=== PATIENT | male | born 1945 | race Caucasian/White ===

== ENCOUNTER 2016-11-20 21:50 | Inpatient (IN) | payer MEDICARE ==
[~2016-11-20] VITALS: Ht 177.8 cm; Wt 92.5 kg
[2016-11-20] MEDS ORDERED: PROAAER10 INH (22:02)
[2016-11-20] MEDS ORDERED: TIOT18INH INH (22:02)
[2016-11-20] MEDS ORDERED: ELIQ5TAB PO (22:02)
[2016-11-20] MEDS ORDERED: SIMV40TA2 PO (22:02)
[2016-11-20] MEDS ORDERED: OXYC-517 PO (22:02)
[2016-11-21] MEDS ORDERED: diphenhydrAMINE INJ 50MG/ML VIAL (J1200) IV STA (00:07)
[2016-11-21] MEDS ORDERED: HALOPERIDOL 5 MG/ML VIAL (J1630) IV STA (00:07)
[2016-11-21] MEDS ORDERED: MORPHINE 4 MG/ML 1ML SYRINGE IV ONE ×2 (00:15→05:30)
[2016-11-21] MEDS ORDERED: NS 500 ML IV ONE (00:15)
[2016-11-21 00:31] LABS: ABG BASE EXCESS 0.3 (-2.0-2.0); ABG HCO3 22.7 MEQ/L (22.0-26.0); ABG PARTIAL PRESSURE CO2 30.6 mmHg (35.0-45.0); ABG PARTIAL PRESSURE O2 63.8 mmHg (75.0-100.0); ABG STANDARD HCO3 24.7 MEQ/L (22.0-26.0); ABG TOTAL CO2 23.7 MEQ/L (23.0-31.0); ABG pH (ARTERIAL) 7.489 UNITS (7.350-7.450)
[2016-11-21 00:59] LABS: ALBUMIN 3.5 GM/DL (3.2-5.2); ALBUMIN/GLOBULIN RATIO 1.13 (1.00-1.93); ALKALINE PHOSPHATASE 245 U/L (45-117); ALT/SGPT 370 U/L (12-78); AMYLASE 30 U/L (25-115); ANION GAP 5 MEQ/L (8-16); AST/SGOT 207 U/L (15-37); BASO % 0.2 % (0.0-1.0); BILIRUBIN,DIRECT 2.4 MG/DL (0.0-0.2); BILIRUBIN,TOTAL 4.1 MG/DL (0.2-1.0); BLOOD UREA NITROGEN 9 MG/DL (7-18); CALCIUM LEVEL 8.9 MG/DL (8.8-10.2); CARBON DIOXIDE LEVEL 30 MEQ/L (21-32); CHLORIDE LEVEL 102 MEQ/L (98-107); CREATININE FOR GFR 0.98 MG/DL (0.70-1.30); EOS # 0.1 K/mm3 (0.0-0.50); EOS % 0.8 % (0.0-3.0); GLOMERULAR FILTRATION RATE > 60.0 (>42); GLUCOSE, FASTING 99 MG/DL (83-110); LARGE UNSTAINED CELL # 0.2 K/mm3 (0.0-0.4); LARGE UNSTAINED CELL % 1.6 % (0.0-4.0); LYMPH # 1.2 K/mm3 (1.5-4.5); LYMPH % 10.7 % (24.0-44.0); MEAN CORPUSCULAR HEMOGLOBIN 31.7 pg (27.0-33.0); MEAN CORPUSCULAR HGB CONC 33.4 g/dl (32.0-36.5); MEAN CORPUSCULAR VOLUME 95.1 fl (80.0-96.0); MONO # 0.7 K/mm3 (0.0-0.8); MONO % 6.6 % (0.0-5.0); NEUTROPHILS # 8.8 K/mm3 (1.8-7.7); NEUTROPHILS % 80.2 % (36.0-66.0); PLATELET COUNT, AUTOMATED 182 k/mm3 (150-450); RED CELL DISTRIBUTION WIDTH 12.6 % (11.5-14.5); SODIUM LEVEL 137 MEQ/L (136-145); TOTAL PROTEIN 6.6 GM/DL (6.4-8.2)
[2016-11-21] MEDS ORDERED: ISOVUE-370 76% 100ML VIAL (Q9967) As Ordered ONE (01:17)
--- NOTE | 2016-11-21 02:20 | REPUSA ---
CLINICAL HISTORY: Chest pain, dyspnea. TECHNIQUE: Multiple axial CT images were obtained through the thorax with IV contrast material. COMMENTS: 5.4x1.2 cm left lower lobe pleural-based mass. Subsegmental consolidation/airspace infiltrates in the right lower lobe. Moderate pulmonary emphysema. Mildly enlarged mediastinal and hilar lymph nodes with the largest measuring 1.5 cm. Aneurysmal ascending aorta measuring 4.5 cm. There is no evidence of pleural or parenchymal mass. There are no pleural effusions. There is no evid ence of hilar or mediastinal lymphadenopathy. The heart and great vessels are within normal limits. The bony structures are free of lytic or blastic lesions. Small sliding hiatal hernia. IMPRESSION: Pleural based mass of the left lower lobe. Emphysema. Subsegmental consolidation in the right lower lobe. Mildly enlarged mediastinal and hilar lymph nodes.. Thank you for your kind referral of this patient.
--- NOTE | 2016-11-21 02:30 | REPUSA ---
CLINICAL HISTORY: Abdominal pain. TECHNIQUE: Multiple axial, sagittal and coronal CT images were obtained through the abdomen and pelvi s after administration of oral and intravenous contrast material. Images were obtained before and aft er IV contrast administration. COMMENTS: The liver is of uniform attenuation without mass or defect. There is moderate biliary ductal dilatati on. The gallbladder is thickened containing sludge. 5.3x4.7 cm heterogeneous mass of the pancreatic h ead and neck. Infiltration of the soft tissues in the peripancreatic head fat plane and encasing the mesenteric vessels. Infiltration of the vera hepatis. Metastatic local regional lymphadenopathy. Lar gest lymph node measures 1.4 cm. Abdominal aortic aneurysm measuring 4.2 cm in its largest transverse dimension. There is no evidence of adrenal mass. 2.3 cm right renal simple cyst. Moderately enlarged spleen. Both kidneys demonstrate prompt and equal nephrograms. The kidneys are normal in size, shape and conf iguration. There is no evidence of renal or ureteral mass. No renal or ureteral calculi are identifie d. There is no hydroureter or hydronephrosis. No evidence for appendicitis. There is no bowel wall thickening. No evidence for small or large kerry l obstruction. There is no evidence of abdominal ascites or lymphadenopathy. There is no evidence of intrinsic or extrinsic bladder mass. There is no pelvic ascites or lymphadeno abdulkadir. Moderate prostatomegaly. Diffusely thickened bladder. Moderate large bowel fecal stasis. There are no pleural effusions. The bony structures are free of lytic or blastic lesions. Multilevel degenerative changes are seen in volving the thoracolumbar spine. Scattered calcifications are seen involving the aorta and major branches compatible with atherosclero sis. IMPRESSION: Pancreatic heterogeneous mass suggestive of a primary neoplasm. Infiltration of the surrounding fat, encasement of the mesenteric vessels. Metastatic peripancreatic and local region lymphadenopathy. Significant compression of the extrahepatic biliary tree. Moderately dilated intrahepatic and extrahepatic biliary tree. Sludge in the gallbladder. Constipation. Prostatomegaly. Thickened bladder. Thank you for your kind referral of this patient.
[2016-11-21] MEDS ORDERED: NS 1,000 ML IV SCH (06:07)
[2016-11-21] MEDS ORDERED: ALBUTEROL SULFATE 2.5 MG/0.5 ML INH NEB SOLN INH PRN (06:15)
[2016-11-21] MEDS ORDERED: NS 2,590 ML in APPROPRIATE DILUENT 1 EA IV ONE (06:15)
[2016-11-21] MEDS: LevoFLOXacin IV 500 MG in APPROPRIATE DILUENT 1 EA IV SCH (06:27)
[2016-11-21] MEDS ORDERED: PROAAER10 INH (06:33)
--- NOTE | 2016-11-21 06:44 | HPEPDOC ---
Medical History and Physical Date of Admission Nov 21, 2016 at 06:07 History and Physical PRIMARY CARE PROVIDER: Dr. Vera in the [place] ATTENDING: Dr. Татьяна Brandon CHIEF COMPLAINT: Shortness of breath and cough HISTORY OF PRESENT ILLNESS: 71-year-old male past medical history of COPD and recent diagnosis of pancreatic cancer with metastases to the lung in October who presents complaining of shortness of breath and worsening abdominal pain. Patient is been complaining of shortness of breath with progression to dyspnea on exertion, for which she decided to come to the ED. Patient also complains of a new productive cough of white sputum. No fevers or chills. Patient also has diffuse abdominal pain has recently been started on oxycodone however has needed to take double the pills to help control his pain. He also complains of constipation after starting his pain medications. Patient denies chest pain/palpitations. No nausea or vomiting. Has been having hiccups that started tonight. PAST MEDICAL HISTORY: As per HPI PAST SURGICAL HISTORY: Right knee arthroscopy, left shoulder repair, hernia repair, abdominal surgery as child SOCIAL HISTORY: History of 1 pack per day 50 year tobacco abuse however quit 1 year ago. No alcohol or illicit drug use. FAMILY HISTORY: Noncontributory ALLERGIES: Please see below. REVIEW OF SYSTEMS: HEENT: Denies sore throat/headache CARDIOVASCULAR: Denies chest pain/palpitations RESPIRATORY: Positive shortness of breath/cough GASTROINTESTINAL: denies nausea/vomiting GENITOURINARY: Denies dysuria. Positive urinary urgency. MUSCULOSKELETAL: Denies myalgias/arthralgias NEUROLOGICAL: Denies any focal weakness HOME MEDICATIONS: Please see below. PHYSICAL EXAMINATION: Vitals: (see below) General: No acute distress, laying comfortably in bed. HEENT: Moist mucous membranes. Neck: No JVD or lymphadenopathy Cardiac: Regular rate. Tachycardic.No murmurs Pulm: Coarse crackles at the right lung base. No wheezing, rhonchi Abd: Tenderness to palpation at the suprapubic region. No rebound guarding or rigidity./ND + BS Ext: No edema or cyanosis LABORATORY DATA: See below. IMAGING: CT chest on 11/21/16 IMPRESSION: Pleural based mass of the left lower lobe. Emphysema. Subsegmental consolidation in the right lower lobe. Mildly enlarged mediastinal and hilar lymph nodes.. CT abdomen and pelvis on 11/21/16 IMPRESSION: Pancreatic heterogeneous mass suggestive of a primary neoplasm. Infiltration of the surrounding fat, encasement of the mesenteric vessels. Metastatic peripancreatic and local region lymphadenopathy. Significant compression of the extrahepatic biliary tree. Moderately dilated intrahepatic and extrahepatic biliary tree. Sludge in the gallbladder. Constipation. Prostatomegaly. Thickened bladder. MICROBIOLOGY: Please see below. ASSESSMENT/PLAN: 1. Sepsis secondary to pneumonia - we'll place patient on broad-spectrum antibiotics at this point pending cultures. Blood/sputum cultures pending. We will check lactic acid. Start IV fluids. Nebs, Mucinex. 2. Transaminitis/hyperbilirubinemia- likely secondary to the patient's significant compression of the extrahepatic as well as the dilated intra-and extrahepatic biliary tree. The patient does have known pancreatic cancer with metastases to the lung. He has not been started on chemotherapy. He was told he has stage IVb. We will obtain records from the [place]. Consider oncology consultation on this admission. ? Role for GI inpatient for possible stenting. We will obtain MRCP. 3. Abdominal pain- secondary to pancreatic cancer. Started on pain regimen. Pain management consultation. 4. History of COPD. On nebs. Does not appear to be wheezing at this time. 5. Constipation- started on bowel regimen DVT prophylaxis- heparin subcutaneous Prognosis guarded Patient followed by Dr. Татьяна Brandon starting 11/21/16 at 7 AM. Vital Signs Vital Signs Date Time Temp Pulse Resp B/P (MAP) Pulse Ox O2 Delivery O2 Flow Rate FiO2 11/21/16 05:44 146/70 (95) 11/21/16 05:39 113 18 93 Room Air 11/20/16 21:51 99.7 Laboratory Data Labs 24H Laboratory Tests 2 11/21/16 00:20: White Blood Count 11.0H, Red Blood Count 4.12L, Hemoglobin 13.1L, Hematocrit 39.2L, Mean Corpuscular Volume 95.1, Mean Corpuscular Hemoglobin 31.7, Mean Corpuscular Hemoglobin Concent 33.4, Red Cell Distribution Width 12.6, Platelet Count 182, Neutrophils (%) (Auto) 80.2H, Lymphocytes (%) (Auto) 10.7L, Monocytes (%) (Auto) 6.6H, Eosinophils (%) (Auto) 0.8, Basophils (%) (Auto) 0.2 , Neutrophils # (Auto) 8.8H, Lymphocytes # (Auto) 1.2L, Monocytes # (Auto) 0.7, Eosinophils # (Auto) 0.1, Basophils # (Auto) 0.0, Large Unclassified Cells % 1.6 , Large Unclassified Cells # 0.2, Blood Gas Bicarbonate Standard 24.7, Arterial Blood pH 7.489H, Arterial Blood Partial Pressure CO2 30.6L, Arterial Blood Partial Pressure O2 63.8L, Arterial Blood Total CO2 23.7, Arterial Blood HCO3 22.7, Arterial Blood Base Excess 0.3, Arterial Blood Oxygen Saturation 94.1L, Anion Gap 5L, Glomerular Filtration Rate > 60.0, Calcium Level 8.9, Aspartate Amino Transf (AST/SGOT) 207H, Alanine Aminotransferase (ALT/SGPT) 370H, Alkaline Phosphatase 245H, Total Bilirubin 4.1H, Direct Bilirubin 2.4H, Total Protein 6.6, Albumin 3.5, Albumin/Globulin Ratio 1.13, Amylase Level 30, Lipase 74 CBC/BMP Laboratory Tests 11/21/16 00:20 Red Blood Count 4.12 L, Mean Corpuscular Volume 95.1, Mean Corpuscular Hemoglobin 31.7, Mean Corpuscular Hemoglobin Concent 33.4, Red Cell Distribution Width 12.6, Neutrophils (%) (Auto) 80.2 H, Lymphocytes (%) (Auto) 10.7 L, Monocytes (%) (Auto) 6.6 H, Eosinophils (%) (Auto) 0.8, Basophils (%) ( Auto) 0.2, Neutrophils # (Auto) 8.8 H, Lymphocytes # (Auto) 1.2 L, Monocytes # ( Auto) 0.7, Eosinophils # (Auto) 0.1, Basophils # (Auto) 0.0 Home Medications Scheduled Apixaban Base (Eliquis) 5 Mg Tab, 1 TAB PO BID Simvastatin - High Dose (Simvastatin) 40 Mg Tab, 1 TAB PO QHS Tiotropium [place] Monohydrate (Spiriva Handihaler) 5 Inhalation/Inhaler Powd, 1 INHALATION INH DAILY Scheduled PRN Albuterol Sulfate (Proair Hfa) 108 Mcg/Act Aer, 2 PUFF INH PRN PRN for SHORTNESS OF BREATH Oxycodone HCl (Oxycodone HCl) 5 Mg Tab, 1 TAB PO PRN PRN for PAIN Allergies Coded Allergies: Penicillins (Verified Allergy, Intermediate, hives, 11/20/16) RAMESH HOLLOWAY MD Nov 21, 2016 06:44
[2016-11-21 07:28] LABS: BASO % 0.2 % (0.0-1.0); EOS % 0.2 % (0.0-3.0); LARGE UNSTAINED CELL # 0.2 K/mm3 (0.0-0.4); LARGE UNSTAINED CELL % 1.1 % (0.0-4.0); LYMPH # 1.1 K/mm3 (1.5-4.5); LYMPH % 6.6 % (24.0-44.0); MEAN CORPUSCULAR HEMOGLOBIN 30.7 pg (27.0-33.0); MEAN CORPUSCULAR HGB CONC 32.5 g/dl (32.0-36.5); MEAN CORPUSCULAR VOLUME 94.7 fl (80.0-96.0); MONO # 0.9 K/mm3 (0.0-0.8); MONO % 6.8 % (0.0-5.0); NEUTROPHILS # 11.8 K/mm3 (1.8-7.7); NEUTROPHILS % 85.1 % (36.0-66.0); PLATELET COUNT, AUTOMATED 181 k/mm3 (150-450); RED CELL DISTRIBUTION WIDTH 12.6 % (11.5-14.5); WHITE BLOOD COUNT 13.9 K/mm3 (4.0-10.0)
[2016-11-21 07:41] LABS: ALBUMIN 3.3 GM/DL (3.2-5.2); ALBUMIN/GLOBULIN RATIO 0.92 (1.00-1.93); ALKALINE PHOSPHATASE 233 U/L (45-117); ALT/SGPT 322 U/L (12-78); ANION GAP 8 MEQ/L (8-16); AST/SGOT 155 U/L (15-37); BILIRUBIN,TOTAL 4.3 MG/DL (0.2-1.0); BLOOD UREA NITROGEN 9 MG/DL (7-18); CALCIUM LEVEL 8.9 MG/DL (8.8-10.2); CARBON DIOXIDE LEVEL 25 MEQ/L (21-32); CHLORIDE LEVEL 101 MEQ/L (98-107); CREATININE FOR GFR 0.93 MG/DL (0.70-1.30); GLOMERULAR FILTRATION RATE > 60.0 (>42); GLUCOSE, FASTING 121 MG/DL (83-110); POTASSIUM SERUM 3.8 MEQ/L (3.5-5.1); SODIUM LEVEL 134 MEQ/L (136-145); TOTAL PROTEIN 6.9 GM/DL (6.4-8.2)
[2016-11-21] MEDS: IPRATROPIUM 0.5MG/ALBUTEROL 2.5MG INH SOL UD 3ML (DUONEB)(J7620) NEB SCH ×5 (07:50→23:45)
[2016-11-21 08:00] VITALS: BP 138/66
[2016-11-21] MEDS: guaiFENesin ER 600 MG TAB PO SCH ×2 (08:45→21:16)
[2016-11-21] MEDS: HEPARIN SOD (PORCINE) 5000 UNITS/ML VIAL SC SCH ×3 (08:45→21:17)
[2016-11-21] MEDS: ACETAMINOPHEN TAB 650MG DOSE (2X325MG) PO PRN (08:45)
[2016-11-21] MEDS: DOCUSATE SODIUM 100 MG CAP PO SCH ×2 (08:45→21:15)
[2016-11-21] MEDS: VANCOMYCIN HCL 1,000 MG, VIAL MATE ADAPTER 1 EACH in D5W 250 ML IV SCH ×2 (08:46→21:16)
[2016-11-21] MEDS: PANTOPRAZOLE 40MG INJ (PROTONIX) (C9113) IV SCH (08:48)
[2016-11-21] MEDS: NS 1,000 ML IV SCH ×2 (09:30→17:00)
[2016-11-21] MEDS ORDERED: VANCOMYCIN HCL 750 MG, VIAL MATE ADAPTER 1 EACH in D5W 250 ML IV ONE (10:00)
[2016-11-21 12:00] VITALS: BP 121/70
[2016-11-21] MEDS: PERCOCET 5MG/325MG TAB PO PRN ×3 (12:11→21:15)
--- NOTE | 2016-11-21 14:24 | PHACANCOPD ---
PHARMACY VANCOMYCIN DOSING Pt Demographics Demographics Patient Age:71 , Weight:91.000 , Gender: male Adjusted Body Weight Date: 11/21/16, Adjusted Body Weight: Kg Events Past 24 Hours Events Past 24 Hours: YES: Fever, Elevation in WBC, Pending Diagnostics Vancomycin Vancomycin indication: sepsis, pna Vancomycin Target Ranges: 15-20 mcg/ml Vancomycin Load Y/N: Yes Load Dose Date Time Vancomycin Load Dose: 1750mg Date: 11/21/16 Time: 0900 Vancomycin Dose Date: 11/21/16. Current Vancomycin Dose: [1g IV Q12H] Intermittent Dosing?: No Labs Labs Item Value Date Time White Blood Count 13.9 K/mm3 H 11/21/16 0702 Red Blood Count 4.12 M/mm3 L 11/21/16 0020 White Blood Count 11.0 K/mm3 H 11/21/16 0020 Creatinine 0.93 MG/DL 11/21/16 0702 Creatinine 0.98 MG/DL 11/21/16 0020 Micro Microbiology 11/21/16 Blood Culture, Received Pending 11/21/16 Blood Culture, Received Pending 11/21/16 Urine Culture, Received Pending Creatinine Clearance Date:11/21/16. Estimated Creatinine Clearance: [~75ml/min]. Pending Labs Vancomycin trough scheduled 11/22/16@1999 Assessment and Plan Maintaining Current Dose?: Yes Reason for dose change: No Dose Change Pharmacist Note Pharmacist Note Date: 11/21/16. Pharmacist note: Day #1 empiric vancomycin tx initiated with a 1750mg loading dose, followed by a maintenance regimen of 1g IV Q12H for the treatment of sepsis/pneumonia - aiming for a goal trough of 15-20mcg/ml. The patient is currently febrile, with an elevated WBC, elevated pulse, and elevated RR. He has recently been diagnosed with pancreatic cancer with metastases to the lung. No PMH of MRSA or vanco use here at [facility]. 11/[address] revealed subsegmental consolidation in the RLL. Blood, urine, and sputum cultures are pending. A vancomycin trough has been scheduled for 11/22/16 @1999. We will continue to monitor the patient and make dose adjustments if needed. [facility] Nov 21, 2016 14:24
[2016-11-21 16:00] VITALS: BP 129/64
[2016-11-21] MEDS ORDERED: FLEET ENEMA PR PRN (16:30)
[2016-11-21] MEDS: metroNIDAZOLE 500 MG in APPROPRIATE DILUENT 1 EA IV SCH ×2 (16:37→23:32)
[2016-11-21 18:57] VITALS: BP 117/63
[2016-11-21 20:00] VITALS: BP 133/63
--- NOTE | 2016-11-21 21:41 | IPNPDOC ---
Text Note Date of Service The patient was seen on 11/21/16. NOTE Hospitalist Progress Note Patient was admitted early this morning by my colleague Dr. Peter. He was seen and examined by me today. 71-year-old male with COPD and 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 He has been admitted with concern for sepsis secondary to pneumonia. 1. Sepsis secondary to pneumonia: The patient's WBC is elevated, and CT of the chest shows concern for consolidation in the right lower lobe. We will continue broad-spectrum antibiotics of vancomycin, Flagyl and Levaquin (patient is allergic to penicillins). Blood cultures are pending and we will attempt to get a sputum culture. Continue IV fluids. Continue nebulizers and Mucinex. 2. Recent diagnosis of pancreatic cancer with metastases to the lung: Patient was scheduled to have his first appointment with oncology today. I have spoken to Dr. Ruelas, who will evaluate the patient in the hospital. 3. Transaminitis: Secondary to the patient's significant compression of the extrahepatic as well as the dilated intrahepatic and extrahepatic biliary tree. After discussion with Dr. Ruelas, I have spoken with Dr. Reyes for his help in evaluating whether or not the patient would be stentable, which would make a big difference in Dr. Ruelas' ability to attempt to treat his cancer. Evaluation by Dr. Reyes is pending. DVT prophylaxis: Heparin Dispo: pending workup by Dr. Reyes and Dr. Ruelas VS,Damaris, I+O VS, Damaris, I+O Laboratory Tests 11/21/16 00:20 Red Blood Count 4.12 L, Mean Corpuscular Volume 95.1, Mean Corpuscular Hemoglobin 31.7, Mean Corpuscular Hemoglobin Concent 33.4, Red Cell Distribution Width 12.6, Neutrophils (%) (Auto) 80.2 H, Lymphocytes (%) (Auto) 10.7 L, Monocytes (%) (Auto) 6.6 H, Eosinophils (%) (Auto) 0.8, Basophils (%) ( Auto) 0.2, Neutrophils # (Auto) 8.8 H, Lymphocytes # (Auto) 1.2 L, Monocytes # ( Auto) 0.7, Eosinophils # (Auto) 0.1, Basophils # (Auto) 0.0 11/21/16 07:02 Red Blood Count 4.30, Mean Corpuscular Volume 94.7, Mean Corpuscular Hemoglobin 30.7, Mean Corpuscular Hemoglobin Concent 32.5, Red Cell Distribution Width 12.6 , Neutrophils (%) (Auto) 85.1 H, Lymphocytes (%) (Auto) 6.6 L, Monocytes (%) ( Auto) 6.8 H, Eosinophils (%) (Auto) 0.2, Basophils (%) (Auto) 0.2, Neutrophils # (Auto) 11.8 H, Lymphocytes # (Auto) 1.1 L, Monocytes # (Auto) 0.9 H, Eosinophils # (Auto) 0.0, Basophils # (Auto) 0.0, Calcium Level 8.9, Aspartate Amino Transf (AST/SGOT) 155 H, Alanine Aminotransferase (ALT/SGPT) 322 H, Alkaline Phosphatase 233 H, Total Bilirubin 4.3 H, Total Protein 6.9, Albumin 3.3 Vital Signs Date Time Temp Pulse Resp B/P (MAP) Pulse Ox O2 Delivery O2 Flow Rate FiO2 11/21/16 21:15 99.9 99 19 117/63 94 Room Air 3.0 FRANSISCO CHRISTENSEN Nov 21, 2016 21:41
--- NOTE | 2016-11-21 21:41 | CR ---
DATE OF CONSULTATION: 11/21/2016 Татьяна Brandon MD, hospitalist service, requested inpatient medical oncology consult for management recommendations regarding metastatic pancreatic cancer. 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 with COPD exacerbation. During that hospitalization he was found to have a 2.3 cm subpleural nodule in the left lung base. He was discharged uneventfully and was to followup with his PCP, but instead was traveling to [place] to be near a daughter. While there, he had acute onset abdominal pain and was admitted to [facility]. A 10/09/2016 CT chest, abdomen and pelvis re-demonstrated the 2.3 cm left lower lobe nodule, and another 1.1 cm ground glass density in the lingula, mildly prominent mediastinal and right hilar nodes, an ill-defined area of diminished enhancement in the pancreas body 3.6 cm x 2.7 cm with soft tissue extending inferiorly to the superior mesenteric artery and thrombosis in the proximal portal vein and superior mesenteric vein with thrombus extending into the mesenteric branches. During that hospitalization he underwent left lower lobe lung nodule biopsy which was positive for adenocarcinoma with features suggestive of upper GI / pancreatic biliary tract origin. He was anticoagulated and later discharged. On 10/18/2016, he presented to the [facility] oncology clinic in [place]. He said he had significant abdominal pain, had been taking oxycodone on discharge from [facility] but ran out of his medications. During his visit at the [facility] oncology labs were notably unremarkable: electrolytes normal, creatinine normal, LDH 220 , AST 18, ALT 23, CBC essentially unremarkable, with a normal differential. CA19- [id number] was drawn but I do not have those results. Details of the biopsy at [facility] showed glandular epithelium, malignant epithelial cells with abundant intracytoplasmic mucin reminiscent of alveolar or biliary type of epithelium with immunostain strongly positive for CDX2, focally weak staining for CK7 and CK20 and equivocal Napsin staining, negative for TTF1, all diagnostic of GI likely or pancreatobiliary origin of adenocarcinoma. Following the patient's 10/18/2016, visit at the [facility] oncology, it was concluded he was a candidate for palliative chemotherapy and he was recommended he says to go home to [place] for local care. He was referred to the [facility] oncology practice, but today, the day he was scheduled to be seen, he presented to the [facility] emergency room with complaint of shortness of breath. He is found to have a 5.4 cm left lower lobe pleural-based mass, mildly enlarged mediastinal and hilar adenopathy, a AAA 4.5 cm. Labs and vital signs notable for fever to 101, mild leukocytosis, significant transaminitis, AST 207, ALT 370, alkaline phosphatase 245, and hyperbilirubinemia, total bilirubin 4.1. He was admitted with diagnosis of pneumonia and metastatic pancreatic cancer. Abdomen and pelvis CT demonstrate moderate biliary ductal dilatation with thickened gallbladder containing sludge, 5.3 x 4.7 cm pancreatic head and neck mass, infiltration of soft tissues in the pancreatic head fat plane encasing mesenteric vessels, infiltration of the vera hepatis and local regional adenopathy, largest node 1.4 cm. The patient has now been seen by Dr. Reyes of gastroenterology and ERCP is planned for tomorrow with potential stenting, in light of the acute biliary obstruction. At the bedside the patient is surrounded by his family. He is comfortably reclining, alert, oriented, very pleasant, mildly jaundiced. He is aware of his diagnosis, expected to start treatment at our practice. I explained the need for biliary stenting to allow hepatic metabolism of any chemotherapy, particularly gemcitabine, the treatment that was recommended at [facility] and which is appropriate for this patient with significant comorbidities and now, three hospitalizations in the last 3 months. I discussed with them the diagnosis of metastatic pancreatic cancer, the prognosis, typically, untreated, 6 months, with expected improvement in overall survival with single-agent chemotherapy adding potentially an additional 6 months but more importantly with single-agent gemcitabine offering improved quality of life. More aggressive chemotherapy can be offered in some instances but unfortunately Mr. Gross's recent hospitalization and comorbidities make this potentially significantly more risky for him. I outlined the typical treatment schedule of gemcitabine once weekly for 7 weeks consecutively followed by 1 week off then going to a 3 week on, 1 week off schedule. PAST MEDICAL HISTORY: COPD, chronic shoulder arthralgia, abdominal aortic aneurysm 4.2 cm, mesenteric vein thrombosis, metastatic pancreatic cancer as described. PAST SURGICAL HISTORY: Stomach surgery, bilateral inguinal hernia repair, knee arthroscopy, cataract surgery, appendectomy, hand surgery, shoulder surgery. ALLERGIES: PENICILLIN. HOME MEDICATIONS: - simvastatin 80 mg by mouth daily - albuterol 90 mcg - tiotropium 18 mcg - milk of magnesia - Zolpidem 10 mg - docusate 50 mg / Senna 8.6 mg - oxycodone 5 mg as needed - apixaban 5 mg FAMILY HISTORY: Not elicited. 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 Has grown children in the area. 50 pack-year smoking history, stopped in 2016. Alcohol use in the past, not recently. REVIEW OF SYSTEMS: The patient denies active pain currently. PHYSICAL EXAMINATION: Deferred. CURRENT LABORATORY DATA: As of 07:00 a.m. today, AST 155, ALT 322, alkaline phosphatase 233, albumin 3.3, 31, 34, remainder of electrolytes unremarkable. Glucose 121. WBC 13.9, hemoglobin/hematocrit 13 and 40, respectively, platelets 131, neutrophils 85%. IMAGING: As discussed. IMPRESSION: Saeed Gross is a 71-year-old man with metastatic pancreatic cancer with the head of the pancreas large obstructing lesion with local SMA extension/involvement, superior mesenteric vein thrombosis and left lower lobe biopsy-proven metastatic focus currently measuring 5 cm, though this may be partially conglomerate with postobstructive pneumonia. In addition he has mediastinal and hilar lymph nodes. He is admitted with shortness of breath and is found to have significant transaminitis. RECOMMENDATIONS: I spent quite a bit of time at the bedside trying to explain to Mr. Gross and his family that whether or not he is a candidate for chemotherapy will in part be determined by the outcome of attempted stenting. With this severely obstructing mass and extensive local involvement and bilirubin of 4, he will have take difficulty being able to be adequately dosed with chemotherapy. I am concerned about the extent of his symptoms regarding his lung function, though reportedly on antibiotics he is improving. He asserts that at home he has a ECOG performance status of 0-1, very active. I explained the prognosis for metastatic pancreatic cancer untreated, elaborated above, and recommended cautious optimism about the possibility of palliative chemotherapy. Ideally, following stenting he could be discharged and if well enough to go home would by definition would be well enough to start single agent gemcitabine which we could start in the office next week. Over time he would need a MediPort but not necessarily for the first treatment. If he quickly rebounds and improves his bilirubin following procedure tomorrow, this would be a good sign that he could tolerate palliative treatment and probably benefit from it. On the other hand, if there is no improvement in liver functions or bilirubin following procedure, a discussion of hospice care may likely be the most appropriate step. I raised this explicitly with Mr. Gross in the presence of his family today. I asked him if he had discussed advance directives before and thought about life-saving measures should he develop cardiac arrest or respiratory arrest. He said he has thought about it but not really clearly made decisions. I encouraged him to think about it tonight. I also encouraged him to develop a healthcare proxy. Unfortunately he has an overall very poor prognosis for survival beyond a year or two, with 3 and 5 years overall survival for metastatic pancreatic cancer extremely poor. He remains optimistic, perhaps somewhat unrealistically so. Thank you for this consult. I will follow intermittently as needed. KALANI
[2016-11-21 23:32] VITALS: BP 130/70
[2016-11-22] VITALS (10 sets, daily range): BP systolic 137–171; BP diastolic 66–92
[2016-11-22] MEDS: PERCOCET 5MG/325MG TAB PO PRN ×2 (02:02→14:07)
[2016-11-22] MEDS: IPRATROPIUM 0.5MG/ALBUTEROL 2.5MG INH SOL UD 3ML (DUONEB)(J7620) NEB SCH ×6 (03:15→23:57)
[2016-11-22] MEDS: HEPARIN SOD (PORCINE) 5000 UNITS/ML VIAL SC SCH ×3 (05:38→20:32)
[2016-11-22] MEDS: LevoFLOXacin IV 500 MG in APPROPRIATE DILUENT 1 EA IV SCH (05:41)
[2016-11-22 06:18] LABS: BASO % 0.4 % (0.0-1.0); EOS % 0.3 % (0.0-3.0); LARGE UNSTAINED CELL # 0.2 K/mm3 (0.0-0.4); LARGE UNSTAINED CELL % 2.2 % (0.0-4.0); LYMPH # 0.8 K/mm3 (1.5-4.5); LYMPH % 8.2 % (24.0-44.0); MEAN CORPUSCULAR HEMOGLOBIN 31.3 pg (27.0-33.0); MEAN CORPUSCULAR HGB CONC 33.2 g/dl (32.0-36.5); MEAN CORPUSCULAR VOLUME 94.4 fl (80.0-96.0); MONO # 0.5 K/mm3 (0.0-0.8); MONO % 5.4 % (0.0-5.0); NEUTROPHILS # 8.1 K/mm3 (1.8-7.7); NEUTROPHILS % 83.4 % (36.0-66.0); PLATELET COUNT, AUTOMATED 192 k/mm3 (150-450); RED CELL DISTRIBUTION WIDTH 12.3 % (11.5-14.5); WHITE BLOOD COUNT 9.7 K/mm3 (4.0-10.0)
[2016-11-22 06:34] LABS: ALBUMIN 3.1 GM/DL (3.2-5.2); ALBUMIN/GLOBULIN RATIO 0.89 (1.00-1.93); ALKALINE PHOSPHATASE 193 U/L (45-117); ALT/SGPT 229 U/L (12-78); ANION GAP 8 MEQ/L (8-16); AST/SGOT 66 U/L (15-37); BILIRUBIN,TOTAL 3.2 MG/DL (0.2-1.0); BLOOD UREA NITROGEN 9 MG/DL (7-18); CALCIUM LEVEL 8.7 MG/DL (8.8-10.2); CARBON DIOXIDE LEVEL 24 MEQ/L (21-32); CHLORIDE LEVEL 107 MEQ/L (98-107); CREATININE FOR GFR 0.84 MG/DL (0.70-1.30); GLOMERULAR FILTRATION RATE > 60.0 (>42); GLUCOSE, FASTING 117 MG/DL (83-110); MAGNESIUM LEVEL 1.8 MG/DL (1.8-2.4); POTASSIUM SERUM 3.6 MEQ/L (3.5-5.1); SODIUM LEVEL 139 MEQ/L (136-145); TOTAL PROTEIN 6.6 GM/DL (6.4-8.2)
[2016-11-22] MEDS: DOCUSATE SODIUM 100 MG CAP PO SCH ×2 (08:44→20:32)
[2016-11-22] MEDS: guaiFENesin ER 600 MG TAB PO SCH ×2 (08:44→20:31)
[2016-11-22] MEDS: PANTOPRAZOLE 40MG INJ (PROTONIX) (C9113) IV SCH (08:44)
[2016-11-22] MEDS: metroNIDAZOLE 500 MG in APPROPRIATE DILUENT 1 EA IV SCH ×2 (08:45→16:00)
[2016-11-22] MEDS: VANCOMYCIN HCL 1,000 MG, VIAL MATE ADAPTER 1 EACH in D5W 250 ML IV SCH ×3 (09:57→22:54)
[2016-11-22] MEDS: NS 1,000 ML IV SCH (12:15)
--- NOTE | 2016-11-22 14:35 | IPNPDOC ---
Date Seen The patient was seen on 11/22/16. Progress Note Hospitalist Progress Note Subjective: Patient states that he is feeling much better. He is not having any difficulty breathing and he denies chest pain. Objective: Physical Exam: Vitals: Vital Sign - Last 24 Hours 11/21/16 11/21/16 11/21/16 11/21/16 16:00 16:37 18:57 20:00 Temp 99.9 99.9 99.7 Pulse 101 99 102 Resp 26 23 19 18 B/P (MAP) 129/64 (85) 117/63 (81) 133/63 (86) Pulse Ox 91 91 94 93 O2 Delivery Nasal Cannula Room Air Room Air O2 Flow Rate 3.0 11/21/16 11/21/16 11/21/16 11/22/16 20:35 21:15 23:32 00:40 Temp 99.9 98.0 Pulse 99 104 Resp 19 22 B/P (MAP) 117/63 130/70 (90) Pulse Ox 94 92 O2 Delivery Room Air Room Air Room Air Room Air O2 Flow Rate 3.0 11/22/16 11/22/16 11/22/16 11/22/16 02:02 02:32 04:00 05:39 Temp 98.0 98.0 98.2 Pulse 104 104 92 Resp 22 18 B/P (MAP) 130/70 130/70 138/75 (96) Pulse Ox 92 92 93 O2 Delivery Room Air Room Air Room Air Room Air O2 Flow Rate 3.0 3.0 11/22/16 11/22/16 11/22/16 11/22/16 08:00 08:50 12:00 14:07 Temp 99.6 99.6 Pulse 100 105 Resp 18 18 20 B/P (MAP) 138/76 (96) 149/84 (105) Pulse Ox 93 97 O2 Delivery Room Air Room Air Room Air General: Awake, alert, no acute distress HEENT: Normocephalic, atraumatic, extraocular movements intact CV: Regular Rate and rhythm Lungs: Clear to auscultation bilaterally Abd: Soft, nontender, nondistended Extremities: No edema Neuro: Alert and oriented 3, normal speech Psych: And normal mood and affect Labs and Imaging: Laboratory Tests 11/22/16 05:40 Red Blood Count 4.03 L, Mean Corpuscular Volume 94.4, Mean Corpuscular Hemoglobin 31.3, Mean Corpuscular Hemoglobin Concent 33.2, Red Cell Distribution Width 12.3, Neutrophils (%) (Auto) 83.4 H, Lymphocytes (%) (Auto) 8.2 L, Monocytes (%) (Auto) 5.4 H, Eosinophils (%) (Auto) 0.3, Basophils (%) ( Auto) 0.4, Neutrophils # (Auto) 8.1 H, Lymphocytes # (Auto) 0.8 L, Monocytes # ( Auto) 0.5, Eosinophils # (Auto) 0.0, Basophils # (Auto) 0.0, Calcium Level 8.7 L , Aspartate Amino Transf (AST/SGOT) 66 H, Alanine Aminotransferase (ALT/SGPT) 229 H, Alkaline Phosphatase 193 H, Total Bilirubin 3.2 H, Total Protein 6.6, Albumin 3.1 L Assessment and Plan: 71-year-old male with COPD and 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 He has been admitted with concern for sepsis secondary to pneumonia. 1. Sepsis secondary to pneumonia: The patient's WBC was elevated, and CT of the chest shows concern for consolidation in the right lower lobe. At this point, his WBC has normalized, and his last fever was over 24 hours ago. We will continue broad-spectrum antibiotics of vancomycin, Flagyl and Levaquin (patient is allergic to penicillins). Blood cultures and sputum culture are pending. Stop IV fluids. Continue nebulizers and Mucinex. 2. Recent diagnosis of pancreatic cancer with metastases to the lung: Patient was scheduled to have his first appointment with oncology on hospital day #1. I have spoken to Dr. Ruelas, who has evaluated the patient in the hospital. Depending on whether or not he is able to be stented, and his response to stenting, will direct whether or not Dr. Ruelas is able to offer palliative chemotherapy. 3. Transaminitis: Secondary to the patient's significant compression of the extrahepatic as well as the dilated intrahepatic and extrahepatic biliary tree. Dr. Reyes is attempting ERCP and stent today. At this point, the patient has been medically optimized for such a procedure. He has no prior cardiac history. He denies any chest pain or difficulty breathing. He is not requiring oxygen. He has been afebrile for 24 hours, and his white count has improved. Prior to this admission, he was previously very active. DVT prophylaxis: Heparin Dispo: pending workup by Dr. Reyes and Dr. Ruelas VS, I&O, 24H, [place] Vital Signs/I&O Vital Signs Date Time Temp Pulse Resp B/P (MAP) Pulse Ox O2 Delivery O2 Flow Rate FiO2 11/22/16 14:07 20 11/22/16 12:00 99.6 105 149/84 (105) 97 Room Air 11/22/16 02:32 3.0 I&O- Last 24 Hours up to 6 AM 11/22/16 05:59 Intake Total 6342.5 ml Output Total 2225 ml Balance 4117.5 ml Laboratory Data 24H LABS Laboratory Tests 2 11/22/16 05:40: White Blood Count 9.7, Red Blood Count 4.03L, Hemoglobin 12.6L, Hematocrit 38.0L , Mean Corpuscular Volume 94.4, Mean Corpuscular Hemoglobin 31.3, Mean Corpuscular Hemoglobin Concent 33.2, Red Cell Distribution Width 12.3, Platelet Count 192, Neutrophils (%) (Auto) 83.4H, Lymphocytes (%) (Auto) 8.2L, Monocytes (%) (Auto) 5.4H, Eosinophils (%) (Auto) 0.3, Basophils (%) (Auto) 0.4, Neutrophils # (Auto) 8.1H, Lymphocytes # (Auto) 0.8L, Monocytes # (Auto) 0.5, Eosinophils # (Auto) 0.0, Basophils # (Auto) 0.0, Large Unclassified Cells % 2.2 , Large Unclassified Cells # 0.2, Anion Gap 8, Glomerular Filtration Rate > 60.0 , Blood Urea Nitrogen 9, Creatinine 0.84, Sodium Level 139, Potassium Level 3.6 , Chloride Level 107, Carbon Dioxide Level 24, Calcium Level 8.7L, Aspartate Amino Transf (AST/SGOT) 66H, Alanine Aminotransferase (ALT/SGPT) 229H, Alkaline Phosphatase 193H, Total Bilirubin 3.2H, Total Protein 6.6, Albumin 3.1L, Magnesium Level 1.8, Albumin/Globulin Ratio 0.89L CBC/BMP Laboratory Tests 11/22/16 05:40 Red Blood Count 4.03 L, Mean Corpuscular Volume 94.4, Mean Corpuscular Hemoglobin 31.3, Mean Corpuscular Hemoglobin Concent 33.2, Red Cell Distribution Width 12.3, Neutrophils (%) (Auto) 83.4 H, Lymphocytes (%) (Auto) 8.2 L, Monocytes (%) (Auto) 5.4 H, Eosinophils (%) (Auto) 0.3, Basophils (%) ( Auto) 0.4, Neutrophils # (Auto) 8.1 H, Lymphocytes # (Auto) 0.8 L, Monocytes # ( Auto) 0.5, Eosinophils # (Auto) 0.0, Basophils # (Auto) 0.0, Calcium Level 8.7 L , Aspartate Amino Transf (AST/SGOT) 66 H, Alanine Aminotransferase (ALT/SGPT) 229 H, Alkaline Phosphatase 193 H, Total Bilirubin 3.2 H, Total Protein 6.6, Albumin 3.1 L Microbiology Microbiology 11/21/16 Blood Culture - Preliminary, Resulted No growth after 24 hours . All specim... 11/21/16 Blood Culture - Preliminary, Resulted No growth after 24 hours . All specim... 11/22/16 Gram Stain - Final, Resulted 11/22/16 Sputum Culture, Resulted Pending 11/21/16 Urine Culture - Final, Complete FRANSISCO CHRISTENSEN Nov 22, 2016 14:35
[2016-11-22] MEDS ORDERED: metroNIDAZOLE/NACL 500MG(5MG/ML)100 ML BAG (S0030) As Ordered ONE (16:25)
[2016-11-22] MEDS ORDERED: ISOVUE-300 61% 50ML VIAL (Q9967) As Ordered ONE (16:27)
[2016-11-22] MEDS ORDERED: LIDOCAINE 2% INJ 100 MG/5 ML SYRINGE As Ordered ONE (16:54)
[2016-11-22] MEDS ORDERED: PROPOFOL 200 MG/20 ML VIAL As Ordered ONE (16:54)
[2016-11-22] MEDS ORDERED: ROCURONIUM BROMIDE 50 MG/5 ML VIAL/SYRINGE As Ordered ONE (16:54)
[2016-11-22] MEDS ORDERED: MIDAZOLAM INJ 2 MG/2 ML VIAL (J2250) As Ordered ONE (16:54)
[2016-11-22] MEDS ORDERED: fentaNYL 100 MCG/2 ML INJECTION (J3010) As Ordered ONE (16:54)
[2016-11-22] MEDS ORDERED: metroNIDAZOLE/NACL 500MG(5MG/ML)100 ML BAG (S0030) IV ONE (17:08)
[2016-11-22] MEDS ORDERED: ONDANSETRON 4MG/2ML VIAL (J2405) As Ordered ONE ×2 (17:11→18:36)
[2016-11-22] MEDS ORDERED: DESFLURANE 240 ML INHALANT As Ordered ONE (17:26)
[2016-11-22] MEDS ORDERED: GLYCOPYRROLATE INJ 0.2 MG/ML 2 ML VIAL As Ordered ONE (17:27)
[2016-11-22] MEDS ORDERED: NEOSTIGMINE 1MG/ML 5 ML SYRINGE (J2710) As Ordered ONE (17:27)
--- NOTE | 2016-11-22 18:31 | ROOR ---
Patient Name: Saeed Gross Procedure Date: 11/22/2016 4:35 PM Date of : 1945 Age: 71 Room: [facility] Gender: Male Note Status: Finalized Procedure: ERCP Indications: Jaundice, Elevated liver enzymes, Malignant tumor involving entire pancreas Providers: Fermín REYES MD Referring MD: Nusrat Ruelas MD, [facility], Admin. Requesting Provider: Medicines: Monitored Anesthesia Care Complications: No immediate complications. Procedure: Pre-Anesthesia Assessment: - The heart rate, respiratory rate, oxygen saturations, blood pressure, adequacy of pulmonary ventilation, and response to care were monitored throughout the procedure. The Duodenoscope was introduced through the mouth, and advanced to the duodenum and used to inject contrast into the bile duct. The ERCP was performed with difficulty due to challenging cannulation because of abnormal anatomy. Successful completion of the procedure was aided by straightening and shortening the scope to obtain bowel loop reduction. The patient tolerated the procedure well. 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 The esophagus was successfully intubated under direct vision. The scope was advanced to a normal major papilla in the descending duodenum without detailed examination of the pharynx, larynx and associated structures, and upper GI tract. The upper GI tract was grossly normal. The bile duct was deeply cannulated. Contrast was injected. I personally interpreted the bile duct images. Ductal flow of contrast was adequate. Image quality was adequate. The middle third of the main bile duct and upper third of the main bile duct were markedly dilated and diffusely dilated, with extrinsic compression causing an obstruction. The largest diameter was 18 mm. A 6 mm biliary sphincterotomy was made with a monofilament traction (standard) sphincterotome using ERBE electrocautery. There was no post-sphincterotomy bleeding. One 10 mm by 6 cm covered metal stent was placed into the common bile duct. Bile flowed through the stent. The stent was in good position. Impression: - The upper third of the main bile duct and middle third of the main bile duct were markedly dilated, with extrinsic compression causing an obstruction in the mid bile duct. - A biliary sphincterotomy was performed. - One covered metal stent was placed into the common bile duct across the compression/stricture. Recommendation: - Observe patient's clinical course. - Clear liquid diet today. - Advance diet as tolerated for 1 day. - Return patient to hospital [facility] for ongoing care. Attending Participation: I personally performed the entire procedure. Fermín Reyes MD Fermín REYES MD 11/22/2016 6:30:49 PM This report has been signed electronically. Number of Addenda: 0 Note Initiated On: 11/22/2016 4:35 PM Estimated Blood Loss: Estimated blood loss: none.
[2016-11-22] MEDS: ONDANSETRON 4MG/2ML VIAL (J2405) IV PRN (18:38)
[2016-11-22] MEDS ORDERED: LR 1,000 ML IV SCH (19:00)
[2016-11-22] MEDS ORDERED: ONDANSETRON 4MG/2ML VIAL (J2405) IV PRN (19:00)
[2016-11-22] MEDS ORDERED: fentaNYL 100 MCG/2 ML INJECTION (J3010) IV PRN (19:00)
[2016-11-22] MEDS: ACETAMINOPHEN TAB 650MG DOSE (2X325MG) PO PRN (20:33)
[2016-11-22] MEDS ORDERED: diphenhydrAMINE 25 MG CAP PO ONE ×2 (22:45)
--- NOTE | 2016-11-22 23:45 | PHACANCOPD ---
PHARMACY VANCOMYCIN DOSING Pt Demographics Demographics Patient Age:71 , Weight:90.500 , Gender: male Adjusted Body Weight Events Past 24 Hours Events Past 24 Hours: NO: Dialysis, Diuretic Therapy, Change in CrCl, Fever, Elevation in WBC, Pending Diagnostics, Pending Procedures, Other Vancomycin Vancomycin indication: sepsis, pna Vancomycin Target Ranges: 15-20 mcg/ml Vancomycin Load Y/N: Yes Load Dose Date Time Vancomycin Load Dose: 1750mg Date: 11/21/16 Time: 0900 Vancomycin Dose Date: 11/22/16. Change current Vancomycin Dose: [1g IV Q8H starting at 23:00] Intermittent Dosing?: No Labs Labs Laboratory Tests Test 11/22/16 19:51 Vancomycin Level Trough 7.9 UG/ML (10.0-20.0) Laboratory Tests 11/22/16 05:40 Red Blood Count 4.03, Mean Corpuscular Volume 94.4, Mean Corpuscular Hemoglobin 31.3, Mean Corpuscular Hemoglobin Concent 33.2, Red Cell Distribution Width 12.3 , Neutrophils (%) (Auto) 83.4, Lymphocytes (%) (Auto) 8.2, Monocytes (%) (Auto) 5.4, Eosinophils (%) (Auto) 0.3, Basophils (%) (Auto) 0.4, Neutrophils # (Auto) 8.1, Lymphocytes # (Auto) 0.8, Monocytes # (Auto) 0.5, Eosinophils # (Auto) 0.0 , Basophils # (Auto) 0.0, Calcium Level 8.7, Aspartate Amino Transf (AST/SGOT) 66, Alanine Aminotransferase (ALT/SGPT) 229, Alkaline Phosphatase 193, Total Bilirubin 3.2, Total Protein 6.6, Albumin 3.1 Micro Microbiology 11/21/16 Blood Culture - Preliminary, Resulted No growth after 24 hours . All specim... 11/21/16 Blood Culture - Preliminary, Resulted No growth after 24 hours . All specim... 11/22/16 Gram Stain - Final, Resulted 11/22/16 Sputum Culture, Resulted Pending 11/21/16 Urine Culture - Final, Complete Creatinine Clearance Date:11/22/16. Estimated Creatinine Clearance: [>60 ml/min]. Pending Labs REPEAT Vancomycin trough scheduled 11/23/16@22:00 Assessment and Plan Maintaining Current Dose?: No Reason for dose change: Trough too low Pharmacist Note Pharmacist Note Date: 11/22/16. Pharm.D. note: VANCO 1GM IV Q12H RESULTED IN A VANCO TR = 7.9 mcg /ml (GOAL 15-20 mcg/ml). THE CURRENT 1GM DOSE IS RUNNING; THEREFORE, WE WILL CHANGE HIM TO VANCO 1GM IV Q8H STARTING AT 23:00 THIS EVENING (2GM re-LOAD). A VANCO TR WILL BE DRAWN PRIOR TO HIS 23:00 11/23 DOSE [facility] Nov 22, 2016 23:45
[2016-11-23] VITALS (8 sets, daily range): BP systolic 110–156; BP diastolic 65–88
[2016-11-23] MEDS: metroNIDAZOLE 500 MG in APPROPRIATE DILUENT 1 EA IV SCH (00:05)
[2016-11-23] MEDS: IPRATROPIUM 0.5MG/ALBUTEROL 2.5MG INH SOL UD 3ML (DUONEB)(J7620) NEB SCH ×5 (02:53→20:00)
[2016-11-23] MEDS: LevoFLOXacin IV 500 MG in APPROPRIATE DILUENT 1 EA IV SCH (05:14)
[2016-11-23] MEDS: HEPARIN SOD (PORCINE) 5000 UNITS/ML VIAL SC SCH (05:14)
[2016-11-23 05:30] LABS: BASO % 0.4 % (0.0-1.0); EOS # 0.1 K/mm3 (0.0-0.50); EOS % 0.8 % (0.0-3.0); LARGE UNSTAINED CELL # 0.2 K/mm3 (0.0-0.4); LARGE UNSTAINED CELL % 2.1 % (0.0-4.0); LYMPH # 0.9 K/mm3 (1.5-4.5); LYMPH % 10.7 % (24.0-44.0); MEAN CORPUSCULAR HEMOGLOBIN 30.7 pg (27.0-33.0); MEAN CORPUSCULAR HGB CONC 32.3 g/dl (32.0-36.5); MONO # 0.6 K/mm3 (0.0-0.8); MONO % 8.1 % (0.0-5.0); NEUTROPHILS # 5.8 K/mm3 (1.8-7.7); NEUTROPHILS % 77.9 % (36.0-66.0); PLATELET COUNT, AUTOMATED 184 k/mm3 (150-450); RED CELL DISTRIBUTION WIDTH 12.7 % (11.5-14.5); WHITE BLOOD COUNT 7.4 K/mm3 (4.0-10.0)
[2016-11-23 05:48] LABS: ALBUMIN 2.7 GM/DL (3.2-5.2); ALBUMIN/GLOBULIN RATIO 0.82 (1.00-1.93); ALKALINE PHOSPHATASE 161 U/L (45-117); ALT/SGPT 150 U/L (12-78); ANION GAP 7 MEQ/L (8-16); AST/SGOT 33 U/L (15-37); BILIRUBIN,TOTAL 1.6 MG/DL (0.2-1.0); BLOOD UREA NITROGEN 7 MG/DL (7-18); CALCIUM LEVEL 8.8 MG/DL (8.8-10.2); CARBON DIOXIDE LEVEL 26 MEQ/L (21-32); CHLORIDE LEVEL 108 MEQ/L (98-107); CREATININE FOR GFR 0.73 MG/DL (0.70-1.30); GLOMERULAR FILTRATION RATE > 60.0 (>42); GLUCOSE, FASTING 108 MG/DL (83-110); MAGNESIUM LEVEL 1.8 MG/DL (1.8-2.4); POTASSIUM SERUM 3.9 MEQ/L (3.5-5.1); SODIUM LEVEL 141 MEQ/L (136-145)
[2016-11-23] MEDS: VANCOMYCIN HCL 1,000 MG, VIAL MATE ADAPTER 1 EACH in D5W 250 ML IV SCH (06:49)
--- NOTE | 2016-11-23 08:05 | REP ---
ERCP: 23 views. HISTORY: Pneumonia. Sepsis. 4-apnvle-78-second fluoroscopy time is reported. 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 Final film demonstrates deployment of a common bile duct stent. Signed by Chester Edouard MD 11/23/2016 10:15 A
[2016-11-23] MEDS: PANTOPRAZOLE 40MG INJ (PROTONIX) (C9113) IV SCH (08:12)
[2016-11-23] MEDS: guaiFENesin ER 600 MG TAB PO SCH ×2 (08:12→21:35)
[2016-11-23] MEDS: DOCUSATE SODIUM 100 MG CAP PO SCH ×2 (08:12→21:35)
[2016-11-23] MEDS: PERCOCET 5MG/325MG TAB PO PRN (13:30)
--- NOTE | 2016-11-23 13:33 | IPNPDOC ---
Date Seen The patient was seen on 11/23/16. Progress Note Hospitalist Progress Note Subjective: Patient states that he is feeling much better. His abd pain has resolved since the stenting yesterday Objective: Physical Exam: Vitals: Vital Sign - Last 24 Hours 11/22/16 11/22/16 11/22/16 11/22/16 14:07 15:07 16:00 18:27 Temp 98.9 98.0 Pulse 118 111 Resp 20 18 18 15 B/P (MAP) 171/87 (115) 128/64 (85) Pulse Ox 94 94 O2 Delivery Room Air Room Air 11/22/16 11/22/16 11/22/16 11/22/16 18:40 18:55 19:30 20:00 Temp 98.4 99.3 99.4 Pulse 102 100 103 106 Resp 16 16 20 22 B/P (MAP) 147/64 (91) 151/68 (95) 158/81 (106) 167/77 (107) Pulse Ox 91 91 92 90 O2 Delivery Room Air Room Air Room Air Room Air 11/22/16 11/22/16 11/22/16 11/22/16 20:41 21:00 22:00 23:00 Temp 100.1 100.1 99.4 Pulse 103 105 103 Resp 22 18 B/P (MAP) 153/77 (102) 159/83 (108) 137/66 (89) Pulse Ox 92 91 94 O2 Delivery Room Air Room Air Room Air Room Air 11/22/16 11/23/16 11/23/16 11/23/16 23:59 04:00 07:44 08:00 Temp 98.9 99.5 97.0 Pulse 105 102 107 Resp 20 18 18 B/P (MAP) 169/92 (117) 156/82 (106) 142/88 (106) Pulse Ox 91 93 94 O2 Delivery Room Air Room Air Room Air Room Air 11/23/16 11:47 Temp 98.1 Pulse 75 Resp 18 B/P (MAP) 148/88 (108) Pulse Ox 98 O2 Delivery Room Air General: Awake, alert, no acute distress HEENT: Normocephalic, atraumatic, extraocular movements intact CV: Regular Rate and rhythm Lungs: Clear to auscultation bilaterally Abd: Soft, nontender, nondistended Extremities: No edema Neuro: Alert and oriented 3, normal speech Psych: And normal mood and affect Labs and Imaging: Laboratory Tests 11/23/16 05:10 Red Blood Count 3.78 L, Mean Corpuscular Volume 95.0, Mean Corpuscular Hemoglobin 30.7, Mean Corpuscular Hemoglobin Concent 32.3, Red Cell Distribution Width 12.7, Neutrophils (%) (Auto) 77.9 H, Lymphocytes (%) (Auto) 10.7 L, Monocytes (%) (Auto) 8.1 H, Eosinophils (%) (Auto) 0.8, Basophils (%) ( Auto) 0.4, Neutrophils # (Auto) 5.8, Lymphocytes # (Auto) 0.9 L, Monocytes # ( Auto) 0.6, Eosinophils # (Auto) 0.1, Basophils # (Auto) 0.0, Calcium Level 8.8, Aspartate Amino Transf (AST/SGOT) 33, Alanine Aminotransferase (ALT/SGPT) 150 H , Alkaline Phosphatase 161 H, Total Bilirubin 1.6 H, Total Protein 6.0 L, Albumin 2.7 L Assessment and Plan: 71-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 He has been admitted with concern for sepsis secondary to pneumonia. 1. Sepsis secondary to pneumonia: The patient's WBC was elevated, and CT of the chest shows concern for consolidation in the right lower lobe. At this point, his WBC has normalized, and his last fever was over 48 hours ago. We will narrow his antibiotics from vancomycin, Flagyl and Levaquin (patient is allergic to penicillins) to just levaquin. Blood cultures are negative and sputum culture are pending. Continue nebulizers and Mucinex. 2. Recent diagnosis of pancreatic cancer with metastases to the lung: Patient was scheduled to have his first appointment with oncology on hospital day #1. I have spoken to Dr. Ruelas, who has evaluated the patient in the hospital. Dr. Ruelas plans to start palliative chemotherapy next week. 3. Transaminitis: Secondary to the patient's significant compression of the extrahepatic as well as the dilated intrahepatic and extrahepatic biliary tree. Dr. Reyes stented his CBD. LFTs are steadily trending down. 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 DVT prophylaxis: tx dose lovenox Dispo: home in the next 24-48H; transfer to the floor VS, I&O, 24H, [place] Vital Signs/I&O Vital Signs Date Time Temp Pulse Resp B/P (MAP) Pulse Ox O2 Delivery O2 Flow Rate FiO2 11/23/16 11:47 98.1 75 18 148/88 (108) 98 Room Air 11/22/16 02:32 3.0 I&O- Last 24 Hours up to 6 AM 11/23/16 06:00 Intake Total 3040 ml Output Total 1775 ml Balance 1265 ml Laboratory Data 24H LABS Laboratory Tests 2 11/22/16 19:51: Vancomycin Level Trough 7.9L 11/23/16 05:10: White Blood Count 7.4, Red Blood Count 3.78L, Hemoglobin 11.6L, Hematocrit 35.9L , Mean Corpuscular Volume 95.0, Mean Corpuscular Hemoglobin 30.7, Mean Corpuscular Hemoglobin Concent 32.3, Red Cell Distribution Width 12.7, Platelet Count 184, Neutrophils (%) (Auto) 77.9H, Lymphocytes (%) (Auto) 10.7L, Monocytes (%) (Auto) 8.1H, Eosinophils (%) (Auto) 0.8, Basophils (%) (Auto) 0.4 , Neutrophils # (Auto) 5.8, Lymphocytes # (Auto) 0.9L, Monocytes # (Auto) 0.6, Eosinophils # (Auto) 0.1, Basophils # (Auto) 0.0, Large Unclassified Cells % 2.1 , Large Unclassified Cells # 0.2, Anion Gap 7L, Glomerular Filtration Rate > 60.0, Blood Urea Nitrogen 7, Creatinine 0.73, Sodium Level 141, Potassium Level 3.9, Chloride Level 108H, Carbon Dioxide Level 26, Calcium Level 8.8, Aspartate Amino Transf (AST/SGOT) 33, Alanine Aminotransferase (ALT/SGPT) 150H, Alkaline Phosphatase 161H, Total Bilirubin 1.6H, Total Protein 6.0L, Albumin 2.7L, Magnesium Level 1.8, Albumin/Globulin Ratio 0.82L CBC/BMP Laboratory Tests 11/23/16 05:10 Red Blood Count 3.78 L, Mean Corpuscular Volume 95.0, Mean Corpuscular Hemoglobin 30.7, Mean Corpuscular Hemoglobin Concent 32.3, Red Cell Distribution Width 12.7, Neutrophils (%) (Auto) 77.9 H, Lymphocytes (%) (Auto) 10.7 L, Monocytes (%) (Auto) 8.1 H, Eosinophils (%) (Auto) 0.8, Basophils (%) ( Auto) 0.4, Neutrophils # (Auto) 5.8, Lymphocytes # (Auto) 0.9 L, Monocytes # ( Auto) 0.6, Eosinophils # (Auto) 0.1, Basophils # (Auto) 0.0, Calcium Level 8.8, Aspartate Amino Transf (AST/SGOT) 33, Alanine Aminotransferase (ALT/SGPT) 150 H , Alkaline Phosphatase 161 H, Total Bilirubin 1.6 H, Total Protein 6.0 L, Albumin 2.7 L Microbiology Microbiology 11/21/16 Blood Culture - Preliminary, Resulted No Growth after 48 hours. All Specime... 11/21/16 Blood Culture - Preliminary, Resulted No Growth after 48 hours. All Specime... 11/22/16 Gram Stain - Final, Resulted 11/22/16 Sputum Culture, Resulted Pending 11/21/16 Urine Culture - Final, Complete FRANSISCO CHRISTENSEN Nov 23, 2016 13:33
[2016-11-23] MEDS: ONDANSETRON 4MG/2ML VIAL (J2405) IV PRN (13:52)
[2016-11-23] MEDS: ENOXAPARIN 150 MG/ML SYR (J1650) SC SCH (15:28)
[2016-11-23] MEDS: METOPROLOL TART 25 MG TABLET PO SCH ×2 (18:44→23:49)
[2016-11-23] MEDS ORDERED: METOPROLOL 5 MG/5 ML VIAL IV STA (18:49)
[2016-11-24] VITALS (8 sets, daily range): BP systolic 125–175; BP diastolic 64–83; PULSE 89–94
[2016-11-24] MEDS: IPRATROPIUM 0.5MG/ALBUTEROL 2.5MG INH SOL UD 3ML (DUONEB)(J7620) NEB SCH ×6 (04:00→20:30)
[2016-11-24] MEDS: METOPROLOL TART 25 MG TABLET PO SCH ×4 (05:03→23:07)
[2016-11-24] MEDS: LevoFLOXacin 750 MG TABLET PO SCH (05:03)
[2016-11-24 05:19] LABS: BASO % 0.4 % (0.0-1.0); EOS # 0.1 K/mm3 (0.0-0.50); EOS % 1.1 % (0.0-3.0); LARGE UNSTAINED CELL # 0.2 K/mm3 (0.0-0.4); LARGE UNSTAINED CELL % 2.6 % (0.0-4.0); LYMPH # 1.2 K/mm3 (1.5-4.5); LYMPH % 15.4 % (24.0-44.0); MEAN CORPUSCULAR HEMOGLOBIN 31.3 pg (27.0-33.0); MEAN CORPUSCULAR HGB CONC 33.5 g/dl (32.0-36.5); MEAN CORPUSCULAR VOLUME 93.2 fl (80.0-96.0); MONO # 0.6 K/mm3 (0.0-0.8); MONO % 7.4 % (0.0-5.0); NEUTROPHILS # 5.7 K/mm3 (1.8-7.7); PLATELET COUNT, AUTOMATED 218 k/mm3 (150-450); RED CELL DISTRIBUTION WIDTH 12.5 % (11.5-14.5); WHITE BLOOD COUNT 7.8 K/mm3 (4.0-10.0)
[2016-11-24 05:30] LABS: ALBUMIN 2.6 GM/DL (3.2-5.2); ALBUMIN/GLOBULIN RATIO 0.76 (1.00-1.93); ALKALINE PHOSPHATASE 145 U/L (45-117); ALT/SGPT 110 U/L (12-78); ANION GAP 10 MEQ/L (8-16); AST/SGOT 23 U/L (15-37); BILIRUBIN,TOTAL 1.1 MG/DL (0.2-1.0); BLOOD UREA NITROGEN 9 MG/DL (7-18); CALCIUM LEVEL 8.7 MG/DL (8.8-10.2); CARBON DIOXIDE LEVEL 26 MEQ/L (21-32); CHLORIDE LEVEL 104 MEQ/L (98-107); CREATININE FOR GFR 0.71 MG/DL (0.70-1.30); GLOMERULAR FILTRATION RATE > 60.0 (>42); GLUCOSE, FASTING 107 MG/DL (83-110); MAGNESIUM LEVEL 1.6 MG/DL (1.8-2.4); POTASSIUM SERUM 3.5 MEQ/L (3.5-5.1); SODIUM LEVEL 140 MEQ/L (136-145)
[2016-11-24] MEDS: MAG SULF 1GM/100ML (MAG RUN) 1 GM in APPROPRIATE DILUENT 1 EA IV SCH ×2 (06:36→08:24)
[2016-11-24] MEDS: DOCUSATE SODIUM 100 MG CAP PO SCH ×2 (08:24→20:21)
[2016-11-24] MEDS: guaiFENesin ER 600 MG TAB PO SCH ×2 (08:24→20:21)
[2016-11-24] MEDS: PANTOPRAZOLE 40MG INJ (PROTONIX) (C9113) IV SCH (10:36)
--- NOTE | 2016-11-24 12:53 | ECGEPIP ---
Stationary ECG Study [facility] Test Date: 2016-11-23 Pat Name: RAVEN HARRELL Department: Room: [place] [address] Gender: M Manager Interface: CRICKET : 1945 Requested By: FRANSISCO White Order Number: [id number] Reading MD: Fermín Aaron Measurements Intervals [place] Rate: 150 P: GA: 0 QRS: -51 QRSD: 87 T: 30 QT: 272 QTc: 430 Interpretive Statements ATRIAL FIBRILLATION WITH RAPID VENTRICULAR RESPONSE PATTERN CONSISTENT WITH PULMONARY DISEASE POSSIBLE RIGHT VENTRICULAR CONDUCTION DELAY LEFT ANTERIOR FASCICULAR BLOCK Comparison tracing not on file Electronically Signed On 11-24-2016 12:52:42 EDT by Fermín Aaron
--- NOTE | 2016-11-24 12:54 | ECGEPIP ---
Stationary ECG Study [facility] Test Date: 2016-11-23 Pat Name: RAVEN HARRELL Department: Room: [place] [address] Gender: M [employer] Counselor: EM : 1945 Requested By: MARGIE FAYE Order Number: [id number] Reading MD: Fermín Aaron Measurements Intervals [place] Rate: 98 P: 42 FL: 192 QRS: -45 QRSD: 92 T: 17 QT: 357 QTc: 458 Interpretive Statements SINUS RHYTHM Borderline prolonged QTc POSSIBLE LEFT ATRIAL ENLARGEMENT POSSIBLE RIGHT VENTRICULAR CONDUCTION DELAY LEFT ANTERIOR FASCICULAR BLOCK Rate decreased when compared to tracing done 11-23-16 Electronically Signed On 11-24-2016 12:54:29 EDT by Fermín Aaron
[2016-11-24] MEDS: ENOXAPARIN 150 MG/ML SYR (J1650) SC SCH (14:52)
[2016-11-24] MEDS ORDERED: LOVE0.8I3 SC (15:09)
--- NOTE | 2016-11-24 16:49 | IPNPDOC ---
Date Seen The patient was seen on 11/24/16. Progress Note Hospitalist Progress Note Subjective: Patient states that he is feeling much better. He reports being asymptomatic yesterday with the Afib Objective: Physical Exam: Vitals: Vital Sign - Last 24 Hours 11/23/16 11/23/16 11/23/16 11/23/16 16:50 18:40 18:44 19:18 Temp 98.0 98.2 Pulse 110 130 150 124 Resp 18 18 B/P (MAP) 122/85 (97) 118/65 (82) 118/65 110/67 Pulse Ox 95 95 O2 Delivery Room Air Room Air 11/23/16 11/23/16 11/23/16 11/23/16 19:20 20:00 20:00 23:49 Temp 99.7 Pulse 124 121 95 Resp 20 B/P (MAP) 110/67 (81) 144/80 (101) 125/66 Pulse Ox 94 O2 Delivery Room Air Room Air 11/23/16 11/24/16 11/24/16 11/24/16 23:59 00:00 04:00 05:03 Temp 100.1 98.9 Pulse 76 89 89 Resp 20 20 B/P (MAP) 125/66 (85) 170/78 (108) 170/78 Pulse Ox 93 93 O2 Delivery Room Air Room Air Room Air 11/24/16 11/24/16 11/24/16 11/24/16 07:50 08:00 11:50 12:00 Temp 98.3 98.9 Pulse 84 99 Resp 18 18 B/P (MAP) 136/76 (96) 167/79 (108) Pulse Ox 93 94 O2 Delivery Room Air Room Air Room Air Room Air 11/24/16 12:25 Pulse 84 B/P (MAP) 136/76 General: Awake, alert, no acute distress HEENT: Normocephalic, atraumatic, extraocular movements intact CV: Regular Rate and rhythm Lungs: Clear to auscultation bilaterally Abd: Soft, nontender, nondistended Extremities: No edema Neuro: Alert and oriented 3, normal speech Psych: And normal mood and affect Labs and Imaging: Laboratory Tests 11/24/16 04:57 Red Blood Count 3.78 L, Mean Corpuscular Volume 93.2, Mean Corpuscular Hemoglobin 31.3, Mean Corpuscular Hemoglobin Concent 33.5, Red Cell Distribution Width 12.5, Neutrophils (%) (Auto) 73.0 H, Lymphocytes (%) (Auto) 15.4 L, Monocytes (%) (Auto) 7.4 H, Eosinophils (%) (Auto) 1.1, Basophils (%) ( Auto) 0.4, Neutrophils # (Auto) 5.7, Lymphocytes # (Auto) 1.2 L, Monocytes # ( Auto) 0.6, Eosinophils # (Auto) 0.1, Basophils # (Auto) 0.0, Calcium Level 8.7 L , Aspartate Amino Transf (AST/SGOT) 23, Alanine Aminotransferase (ALT/SGPT) 110 H, Total Creatine Kinase 78, Alkaline Phosphatase 145 H, Total Bilirubin 1.1 H, Total Protein 6.0 L, Albumin 2.6 L Assessment and Plan: 71-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 He has been admitted with concern for sepsis secondary to pneumonia. Last night he went into Afib w/RVR for about 5 hours. 1. Sepsis secondary to pneumonia: The patient's WBC was elevated, and CT of the chest shows concern for consolidation in the right lower lobe. At this point, his WBC has normalized, and his last fever was over 48 hours ago. His antibiotics have been narrowed from vancomycin, Flagyl and Levaquin (patient is allergic to penicillins) to just levaquin. Blood cultures are negative and sputum culture shows only some yeast like organisms with normal adela. Continue nebulizers and Mucinex. 2. Recent diagnosis of pancreatic cancer with metastases to the lung: Patient was scheduled to have his first appointment with oncology on hospital day #1. I have spoken to Dr. Ruelas, who has evaluated the patient in the hospital. Dr. Ruelas plans to start palliative chemotherapy next week. 3. Transaminitis: Secondary to the patient's significant compression of the extrahepatic as well as the dilated intrahepatic and extrahepatic biliary tree. Dr. Reyes stented his CBD. LFTs are steadily trending down. 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 Patient reports that he had previously been told it would cost over $300 monthly, which he cannot afford, and is why he was on apixaban. Dr. Ruelas says that if he is unable or unwilling to take the lovenox, then the apixaban is fine. We will look into the cost of lovenox. 5. New Afib w/RVR: Last night, the patient was noted to be in Afib to the 150s. He was started on PO metoprolol and converted several hours later. He denies any prior history of Afib. He was asymptomatic and trops are negative. He is already on anticoagulation. We will check TSH and echo. DVT prophylaxis: tx dose lovenox Dispo: home in the next 24-48H pending Afib work up VS, I&O, 24H, Fishbone Vital Signs/I&O Vital Signs Date Time Temp Pulse Resp B/P (MAP) Pulse Ox O2 Delivery O2 Flow Rate FiO2 11/24/16 12:25 84 136/76 11/24/16 12:00 98.9 18 94 Room Air 11/22/16 02:32 3.0 I&O- Last 24 Hours up to 6 AM 11/24/16 06:00 Intake Total 1100 ml Output Total 575 ml Balance 525 ml Laboratory Data 24H LABS Laboratory Tests 2 11/23/16 19:11: Total Creatine Kinase 96, Creatine Kinase MB 2.2, Creatine Kinase MB Relative Index 2.29, Troponin I < 0.02 11/24/16 04:57: Total Creatine Kinase 78, Creatine Kinase MB 1.3, Creatine Kinase MB Relative Index 1.66, Troponin I 0.02, White Blood Count 7.8, Red Blood Count 3.78L, Hemoglobin 11.8L, Hematocrit 35.3L, Mean Corpuscular Volume 93.2, Mean Corpuscular Hemoglobin 31.3, Mean Corpuscular Hemoglobin Concent 33.5, Red Cell Distribution Width 12.5, Platelet Count 218, Neutrophils (%) (Auto) 73.0H, Lymphocytes (%) (Auto) 15.4L, Monocytes (%) (Auto) 7.4H, Eosinophils (%) (Auto) 1.1, Basophils (%) (Auto) 0.4, Neutrophils # (Auto) 5.7, Lymphocytes # (Auto) 1.2L, Monocytes # (Auto) 0.6, Eosinophils # (Auto) 0.1, Basophils # (Auto) 0.0, Large Unclassified Cells % 2.6, Large Unclassified Cells # 0.2, Anion Gap 10, Glomerular Filtration Rate > 60.0, Blood Urea Nitrogen 9, Creatinine 0.71, Sodium Level 140, Potassium Level 3.5, Chloride Level 104, Carbon Dioxide Level 26, Calcium Level 8.7L, Aspartate Amino Transf (AST/SGOT) 23, Alanine Aminotransferase (ALT/SGPT) 110H, Alkaline Phosphatase 145H, Total Bilirubin 1.1H, Total Protein 6.0L, Albumin 2.6L, Magnesium Level 1.6L, Albumin/Globulin Ratio 0.76L, Thyroid Stimulating Hormone (TSH) 0.673 11/24/16 09:48: Total Creatine Kinase 102, Creatine Kinase MB 1.8, Creatine Kinase MB Relative Index 1.76, Troponin I < 0.02 CBC/BMP Laboratory Tests 11/24/16 04:57 Red Blood Count 3.78 L, Mean Corpuscular Volume 93.2, Mean Corpuscular Hemoglobin 31.3, Mean Corpuscular Hemoglobin Concent 33.5, Red Cell Distribution Width 12.5, Neutrophils (%) (Auto) 73.0 H, Lymphocytes (%) (Auto) 15.4 L, Monocytes (%) (Auto) 7.4 H, Eosinophils (%) (Auto) 1.1, Basophils (%) ( Auto) 0.4, Neutrophils # (Auto) 5.7, Lymphocytes # (Auto) 1.2 L, Monocytes # ( Auto) 0.6, Eosinophils # (Auto) 0.1, Basophils # (Auto) 0.0, Calcium Level 8.7 L , Aspartate Amino Transf (AST/SGOT) 23, Alanine Aminotransferase (ALT/SGPT) 110 H, Total Creatine Kinase 78, Alkaline Phosphatase 145 H, Total Bilirubin 1.1 H, Total Protein 6.0 L, Albumin 2.6 L Microbiology Microbiology 11/21/16 Blood Culture - Preliminary, Resulted No Growth after 72 hours. All specime... 11/21/16 Blood Culture - Preliminary, Resulted No Growth after 72 hours. All specime... 11/22/16 Gram Stain - Final, Complete 11/22/16 Sputum Culture - Final, Complete Yeast Like Organism 11/21/16 Urine Culture - Final, Complete FRANSISCO CHRISTENSEN Nov 24, 2016 16:49
[2016-11-24] MEDS: MORPHINE 2 MG/ML 1ML SYRINGE IV PRN ×3 (17:39→22:37)
[2016-11-24] MEDS: PERCOCET 5MG/325MG TAB PO PRN (18:53)
[2016-11-25] VITALS: PULSE 89
[2016-11-25 04:00] VITALS: BP 142/70; PULSE 89
[2016-11-25] MEDS: IPRATROPIUM 0.5MG/ALBUTEROL 2.5MG INH SOL UD 3ML (DUONEB)(J7620) NEB SCH ×4 (04:00→11:16)
[2016-11-25] MEDS: MORPHINE 2 MG/ML 1ML SYRINGE IV PRN ×2 (05:05→08:52)
[2016-11-25] MEDS: LevoFLOXacin 750 MG TABLET PO SCH (05:05)
[2016-11-25] MEDS: METOPROLOL TART 25 MG TABLET PO SCH ×2 (05:05→12:08)
[2016-11-25 06:17] LABS: BASO % 0.3 % (0.0-1.0); EOS % 0.3 % (0.0-3.0); LARGE UNSTAINED CELL # 0.1 K/mm3 (0.0-0.4); LARGE UNSTAINED CELL % 1.3 % (0.0-4.0); LYMPH # 1.3 K/mm3 (1.5-4.5); LYMPH % 10.6 % (24.0-44.0); MEAN CORPUSCULAR HEMOGLOBIN 30.9 pg (27.0-33.0); MEAN CORPUSCULAR HGB CONC 32.9 g/dl (32.0-36.5); MEAN CORPUSCULAR VOLUME 94.1 fl (80.0-96.0); MONO # 0.8 K/mm3 (0.0-0.8); MONO % 7.9 % (0.0-5.0); NEUTROPHILS # 8.4 K/mm3 (1.8-7.7); NEUTROPHILS % 79.5 % (36.0-66.0); PLATELET COUNT, AUTOMATED 244 k/mm3 (150-450); RED CELL DISTRIBUTION WIDTH 12.7 % (11.5-14.5); WHITE BLOOD COUNT 10.6 K/mm3 (4.0-10.0)
[2016-11-25 06:18] LABS: ALBUMIN 2.6 GM/DL (3.2-5.2); ALBUMIN/GLOBULIN RATIO 0.72 (1.00-1.93); ALKALINE PHOSPHATASE 133 U/L (45-117); ALT/SGPT 86 U/L (12-78); ANION GAP 11 MEQ/L (8-16); AST/SGOT 19 U/L (15-37); BLOOD UREA NITROGEN 10 MG/DL (7-18); CALCIUM LEVEL 8.3 MG/DL (8.8-10.2); CARBON DIOXIDE LEVEL 23 MEQ/L (21-32); CHLORIDE LEVEL 101 MEQ/L (98-107); GLOMERULAR FILTRATION RATE > 60.0 (>42); GLUCOSE, FASTING 104 MG/DL (83-110); MAGNESIUM LEVEL 1.8 MG/DL (1.8-2.4); POTASSIUM SERUM 3.4 MEQ/L (3.5-5.1); SODIUM LEVEL 135 MEQ/L (136-145); TOTAL PROTEIN 6.2 GM/DL (6.4-8.2)
[2016-11-25] MEDS ORDERED: POTASSIUM CHLORIDE 10 MEQ SR TABLET PO ONE (07:30)
[2016-11-25 07:59] VITALS: BP 120/65
[2016-11-25] MEDS: PANTOPRAZOLE 40MG INJ (PROTONIX) (C9113) IV SCH (08:50)
[2016-11-25] MEDS: guaiFENesin ER 600 MG TAB PO SCH (08:51)
[2016-11-25] MEDS: DOCUSATE SODIUM 100 MG CAP PO SCH (08:51)
[2016-11-25] MEDS: PERCOCET 5MG/325MG TAB PO PRN (08:52)
--- NOTE | 2016-11-25 11:58 | ECGEPIP ---
Stationary ECG Study [facility] Test Date: 2016-11-24 Pat Name: RAVEN HARRELL Department: Room: [place] [address] Gender: M Eligibility Worker: CODIE : 1945 Requested By: FRANSISCO White Order Number: [id number] Reading MD: Fermín Aaron Measurements Intervals [place] Rate: 94 P: 41 NM: 150 QRS: -45 QRSD: 89 T: 10 QT: 355 QTc: 444 Interpretive Statements SINUS RHYTHM PATTERN CONSISTENT WITH PULMONARY DISEASE Delayed anterior R wave progression POSSIBLE RIGHT VENTRICULAR CONDUCTION DELAY LEFT ANTERIOR FASCICULAR BLOCK Similar to tracing done 11-23-16 with normalized QTc Electronically Signed On 11-25-2016 11:58:26 EDT by Fermín Aaron
[2016-11-25 12:00] VITALS: BP 130/71
[2016-11-25 12:08] VITALS: BP 130/71
--- NOTE | 2016-11-25 12:25 | ECHO ---
DATE OF STUDY: 11/24/2016 REFERRING PHYSICIAN: Dr. Татьяна Brandon The study was performed for indication atrial fibrillation. The patient measures 178 cm and weighs 90 kg. Dimensions: IVS 1.1 RV 5.2 LVPW 1.1 LA 4.1 Aorta 3.7 FINDINGS: The study is of very limited technical quality. There are somewhat acceptable parasternal views, but apical views are very poor, and there are no subcostal views. Apparently, the patient has some form of chest deformity that precluded appropriate imaging. Nevertheless, useful information was obtained. The patient is in sinus rhythm during the study. Left ventricle is of normal size. Overall left ventricular systolic function is normal. I cannot rule out subtle wall motion abnormalities, but it seems unlikely. Estimated ejection fraction (EF) around 65% to 70%. Right ventricle was only very poorly visualized but grossly appears normal. The left atrium is at least mildly enlarged. Right atrium was poorly seen. Aortic, mitral, and tricuspid valves appear grossly normal. Pulmonic valve was not well seen. Trivial pericardial effusion is noted. Left pleural effusion is noted. Inferior vena cava was not visualized. Aortic root is normal, aortic arch and abdominal aorta were not seen. Doppler interrogation of aortic valve reveals no significant stenosis or insufficiency. The same applies for mitral valve. Tricuspid valve was very poorly seen, but based on limited color Doppler imaging, there is no significant insufficiency. Mitral inflow pattern and tissue Doppler imaging of mitral annulus reveal grade 1 diastolic dysfunction. Of note, tissue Doppler velocity of mitral annulus are preserved (E prime septal 12.4 and E prime lateral 11.6 cm/sec). CONCLUSIONS: 1. The study is of limited technical quality. 2. Normal left ventricle (LV) size and systolic function, grade 1 diastolic dysfunction. 3. No significant valvular disease. 4. Unable to estimate central venous pressure and pulmonary artery pressure. 5. Trace pericardial effusion. 6. Left pleural effusion. COMMENT: Subacute bacterial endocarditis (SBE) prophylaxis is not recommended.
[2016-11-25] MEDS ORDERED: LEVA750T7 PO (13:23)
[2016-11-25] MEDS ORDERED: LOPR1TAB6 PO (13:23)
--- NOTE | 2016-11-25 16:02 | DS.PDOC ---
Discharge Summary General Date of Admission Nov 21, 2016 at 06:07 Date of Discharge 11/25/2016 Discharge Summary DISCHARGE SUMMARY DATE OF ADMISSION: 11/21/2016 DATE OF DISCHARGE: 11/25/2016 PRIMARY CARE PHYSICIAN: Dr. Vera at [facility] DISCHARGE DIAGNOS(E)S: Sepsis secondary to pneumonia Pancreatic cancer with metastases to the lung Transaminitis secondary to compression of the biliary tree status post stenting New A. fib with RVR HPI & HOSPITAL COURSE: 71-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 He has been admitted with concern for sepsis secondary to pneumonia. The night of 11/23 he went into Afib w/RVR for about 5 hours. 1. Sepsis secondary to pneumonia: The patient's WBC was elevated, and CT of the chest shows concern for consolidation in the right lower lobe. At this point, his WBC has normalized, and his last fever was over 48 hours ago. His antibiotics have been narrowed from vancomycin, Flagyl and Levaquin (patient is allergic to penicillins) to just levaquin. Blood cultures are negative and sputum culture shows only some yeast like organisms with normal adela. Continue nebulizers and Mucinex and complete abx course. 2. Recent diagnosis of pancreatic cancer with metastases to the lung: Patient was scheduled to have his first appointment with oncology on hospital day #1. I have spoken to Dr. Ruelas, who has evaluated the patient in the hospital. Dr. Ruelas plans to start palliative chemotherapy next week. 3. Transaminitis: Secondary to the patient's significant compression of the extrahepatic as well as the dilated intrahepatic and extrahepatic biliary tree. Dr. Reyes stented his CBD. LFTs are steadily trending down. Holding home statin. 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 Patient reports that he had previously been told it would cost over $300 monthly, which he cannot afford, and is why he was on apixaban. Dr. Ruelas says that if he is unable or unwilling to take the lovenox, then the apixaban is fine. When we looked into the cost of lovenox it is indeed >$300 monthly so he will continue on apixaban. 5. New Afib w/RVR: On 11/23, the patient was noted to be in Afib to the 150s. He was started on PO metoprolol and converted several hours later. He denies any prior history of Afib. He was asymptomatic and trops are negative. He is already on anticoagulation. TSH was WNL. Echo was limited but was relatively unremarkable other than some grade 1 diastolic dysfunction. DVT prophylaxis: tx dose lovenox in house, then apixaban at discharge PHYSICAL EXAMINATION ON DISCHARGE: VITAL SIGNS: Vital Sign - Last 24 Hours 11/24/16 11/24/16 11/24/16 11/24/16 17:26 17:38 17:39 17:50 Pulse 93 94 94 Resp 18 18 B/P (MAP) 146/70 (95) 146/70 134/64 (87) Pulse Ox 94 O2 Delivery Room Air Room Air 11/24/16 11/24/16 11/24/16 11/24/16 18:53 20:00 20:00 20:00 Temp 99.0 Pulse 78 89 Resp 22 18 B/P (MAP) 175/83 (113) Pulse Ox 99 O2 Delivery Room Air Room Air 11/24/16 11/24/16 11/24/16 11/24/16 20:21 22:37 23:07 23:10 Temp 99.4 Pulse 96 97 Resp 16 16 18 B/P (MAP) 125/66 125/66 (85) Pulse Ox 95 O2 Delivery Room Air 11/25/16 11/25/16 11/25/16 11/25/16 00:00 00:00 04:00 04:00 Temp 99.0 Pulse 89 98 89 Resp 18 B/P (MAP) 142/70 (94) Pulse Ox 90 O2 Delivery Room Air Room Air 11/25/16 11/25/16 11/25/16 11/25/16 04:00 05:05 05:05 07:59 Temp 97.5 Pulse 98 83 Resp 16 18 B/P (MAP) 142/70 120/65 (83) Pulse Ox 91 O2 Delivery Room Air 11/25/16 11/25/16 11/25/16 11/25/16 08:00 08:52 08:52 09:02 Resp 20 18 18 O2 Delivery Room Air 9/16/17 11/25/16 11/25/16 11/25/16 09:22 11:13 12:00 12:08 Temp 98.9 Pulse 103 103 Resp 18 16 18 B/P (MAP) 130/71 (90) 130/71 Pulse Ox 92 O2 Delivery Room Air General: Awake, alert, no acute distress HEENT: Normocephalic, atraumatic, extraocular movements intact CV: Regular Rate and rhythm Lungs: Clear to auscultation bilaterally Abd: Soft, nontender, nondistended Extremities: No edema Neuro: Alert and oriented 3, normal speech Psych: And normal mood and affect DISPOSITION: Home DISCHARGE INSTRUCTIONS: Follow-up with Dr. Ruelas on Sunday the at 1 PM Follow-up PCP within one week. If symptoms return, or if you experience worsening of your symptoms, please call your doctor or return to the emergency department. ITEMS THAT NEED OUTPATIENT FOLLOWUP: None Patient was seen and examined by me on the day of discharge, and I spent a total time of greater than 30 minutes on this discharge. Vital Signs/I&Os Vital Signs Date Time Temp Pulse Resp B/P (MAP) Pulse Ox O2 Delivery O2 Flow Rate FiO2 11/25/16 12:08 103 130/71 11/25/16 12:00 98.9 18 92 Room Air 11/22/16 02:32 3.0 I&O- Last 24 Hours up to 6 AM 11/25/16 06:00 Intake Total 1900 ml Output Total 900 ml Balance 1000 ml Laboratory Data Labs 24H Laboratory Tests 2 11/24/16 17:39: Total Creatine Kinase 70, Creatine Kinase MB 1.2, Creatine Kinase MB Relative Index 1.71, Troponin I < 0.02 11/25/16 01:11: Total Creatine Kinase 53, Creatine Kinase MB 1.2, Creatine Kinase MB Relative Index 2.26, Troponin I < 0.02 11/25/16 05:17: White Blood Count 10.6H, Red Blood Count 3.92L, Hemoglobin 12.1L, Hematocrit 36.9L, Mean Corpuscular Volume 94.1, Mean Corpuscular Hemoglobin 30.9, Mean Corpuscular Hemoglobin Concent 32.9, Red Cell Distribution Width 12.7, Platelet Count 244, Neutrophils (%) (Auto) 79.5H, Lymphocytes (%) (Auto) 10.6L, Monocytes (%) (Auto) 7.9H, Eosinophils (%) (Auto) 0.3, Basophils (%) (Auto) 0.3 , Neutrophils # (Auto) 8.4H, Lymphocytes # (Auto) 1.3L, Monocytes # (Auto) 0.8, Eosinophils # (Auto) 0.0, Basophils # (Auto) 0.0, Large Unclassified Cells % 1.3 , Large Unclassified Cells # 0.1, Anion Gap 11, Glomerular Filtration Rate > 60.0, Blood Urea Nitrogen 10, Creatinine 0.70, Sodium Level 135L, Potassium Level 3.4L, Chloride Level 101, Carbon Dioxide Level 23, Calcium Level 8.3L, Aspartate Amino Transf (AST/SGOT) 19, Alanine Aminotransferase (ALT/SGPT) 86H, Alkaline Phosphatase 133H, Total Bilirubin 1.0, Total Protein 6.2L, Albumin 2.6L , Magnesium Level 1.8, Albumin/Globulin Ratio 0.72L 11/25/16 09:14: Total Creatine Kinase 54, Creatine Kinase MB 1.1, Creatine Kinase MB Relative Index 2.03, Troponin I < 0.02 CBC/BMP Laboratory Tests 11/25/16 05:17 Red Blood Count 3.92 L, Mean Corpuscular Volume 94.1, Mean Corpuscular Hemoglobin 30.9, Mean Corpuscular Hemoglobin Concent 32.9, Red Cell Distribution Width 12.7, Neutrophils (%) (Auto) 79.5 H, Lymphocytes (%) (Auto) 10.6 L, Monocytes (%) (Auto) 7.9 H, Eosinophils (%) (Auto) 0.3, Basophils (%) ( Auto) 0.3, Neutrophils # (Auto) 8.4 H, Lymphocytes # (Auto) 1.3 L, Monocytes # ( Auto) 0.8, Eosinophils # (Auto) 0.0, Basophils # (Auto) 0.0, Calcium Level 8.3 L , Aspartate Amino Transf (AST/SGOT) 19, Alanine Aminotransferase (ALT/SGPT) 86 H , Alkaline Phosphatase 133 H, Total Bilirubin 1.0, Total Protein 6.2 L, Albumin 2.6 L Microbiology Microbiology 11/21/16 Blood Culture - Preliminary, Resulted No Growth after 72 hours. All specime... 11/21/16 Blood Culture - Preliminary, Resulted No Growth after 72 hours. All specime... 11/22/16 Gram Stain - Final, Complete 11/22/16 Sputum Culture - Final, Complete Yeast Like Organism 11/21/16 Urine Culture - Final, Complete Discharge Medications Scheduled Apixaban Base (Eliquis) 5 Mg Tab, 5 MG PO BID, (Reported) Levofloxacin Hemihydrate (Levaquin) 750 Mg Tab, 750 MG PO DAILY Metoprolol Tartrate (Lopressor) 50 Mg Tab, 50 MG PO BID Tiotropium [place] Monohydrate (Spiriva Handihaler) 5 Inhalation/Inhaler Powd, 1 INHALATION INH DAILY, (Reported) Scheduled PRN Albuterol Sulfate (Proair Hfa) 108 Mcg/Act Aer, 2 PUFF INH Q4H PRN for SHORTNESS OF BREATH, (Reported) Oxycodone HCl (Oxycodone HCl) 5 Mg Tab, 5 MG PO Q4H PRN for PAIN, (Reported) Allergies Coded Allergies: Penicillins (Verified Allergy, Intermediate, hives, 11/20/16) FRANSISCO CHRISTENSEN Nov 25, 2016 16:02
[2016-12-08] MEDS ORDERED: AMBI5TAB PO (15:03)
== END 2016-11-25 14:13 | disposition home or self-care (01) | DRG 871 ==
LOC: M ED 21:50 → M ED INP 11-21 06:07 → M ICU 11-21 07:47 → M PCU 11-21 18:30 → M MSPAV 11-23 16:10 → M PCU 11-23 18:30
PROVIDERS: ADMIT Internal Medicine; ATTEND Hospitalist
PROC: 0FHB8DZ Insertion of Intraluminal Device into Hepatobiliary Duct, Via Natural or Artificial Opening Endoscopic (ICD-10-PCS; principal; 2016-11-22 07:30)
DX: A41.9 Sepsis, unspecified organism (principal); J18.9 Pneumonia, unspecified organism; K83.1 Obstruction of bile duct; C25.9 Malignant neoplasm of pancreas, unspecified; C78.02 Secondary malignant neoplasm of left lung; C78.6 Secondary malignant neoplasm of retroperitoneum and peritoneum; C78.7 Secondary malignant neoplasm of liver and intrahepatic bile duct; J44.0 Chronic obstructive pulmonary disease with (acute) lower respiratory infection; I48.91 Unspecified atrial fibrillation; K59.03 Drug induced constipation; R74.0 Nonspecific elevation of levels of transaminase and lactic acid dehydrogenase [LDH]; G89.3 Neoplasm related pain (acute) (chronic); Z87.891 Personal history of nicotine dependence; Z79.899 Other long term (current) drug therapy; Z88.0 Allergy status to penicillin

== ENCOUNTER → 2016-11-27 | Outpatient (REF) | payer MEDICARE ==
[~2016-11-27] MED LIST: AMBI5TAB PO; ELIQ5TAB PO; LEVA750T7 PO; LOPR1TAB6 PO; LOVE0.8I3 SC; OXYC-517 PO; PROAAER10 INH; SIMV40TA2 PO; TIOT18INH INH
== END ==
LOC: M LAB REF 17:03
PROVIDERS: ATTEND Internal Medicine Medical Oncology
DX: C25.0 Malignant neoplasm of head of pancreas (principal); C78.7 Secondary malignant neoplasm of liver and intrahepatic bile duct; C78.30 Secondary malignant neoplasm of unspecified respiratory organ

== ENCOUNTER → 2016-12-04 | Outpatient (REF) | payer MEDICARE ==
[2016-12-04 15:08] LABS: INR 1.44
== END ==
LOC: M LAB REF 14:33
PROVIDERS: ATTEND Internal Medicine Medical Oncology
DX: C25.9 Malignant neoplasm of pancreas, unspecified (principal)

== ENCOUNTER → 2016-12-08 | Outpatient (CLI) | payer MEDICARE ==
[2016-12-08 13:04] LABS: ABG HCO3 24.7 MEQ/L (22.0-26.0); ABG PARTIAL PRESSURE CO2 36.4 mmHg (35.0-45.0); ABG PARTIAL PRESSURE O2 80.2 mmHg (75.0-100.0); ABG STANDARD HCO3 25.3 MEQ/L (22.0-26.0); ABG TOTAL CO2 25.8 MEQ/L (23.0-31.0); ABG pH (ARTERIAL) 7.449 UNITS (7.350-7.450)
--- NOTE | 2016-12-08 16:48 | REP ---
PA and lateral chest: Comparisons are the PA and lateral chest of 08/23/[address] of 11/21/2016. There is a left pleural effusion, not present on the comparison studies. On the comparison CT there was a mass in the posterior sulcus of the left lung. This is obscured by the left pleural effusion. There is a right lung nodule. On the comparison CT. This is a calcified granuloma. The lung garcia otherwise clear. Cardiac size is upper normal. The sebastien, mediastinum, and bony thorax are unremarkable. There are focal pleural based linear densities laterally in the left hemithorax system of the left pleural effusion. Impression: Left pleural effusion with pleural based linear parenchymal densities just above the effusion. On the comparison CT there was a left lower lobe mass. Calcified granuloma in the right lung. Signed by Jewel Louis MD 12/08/2016 04:40 P
--- NOTE | 2016-12-08 23:34 | ECGEPIP ---
Stationary ECG Study [facility] Test Date: 2016-12-08 Pat Name: RAVEN HARRELL Department: Room: - Gender: M Finishing Range Operator: : 1945 Requested By: Cody Rankin Order Number: [id number] Reading MD: Ronnie Skinner Measurements Intervals [place] Rate: 75 P: 9 MN: 184 QRS: -42 QRSD: 94 T: 22 QT: 380 QTc: 425 Interpretive Statements SINUS RHYTHM MARKED LEFT AXIS DEVIATION POSSIBLE RIGHT VENTRICULAR CONDUCTION DELAY NONSPECIFIC ST-T ABNORMALITY CONSISTENT WITH EARLY REPOLARIZATION COMPARED TO THE LAST 3 TRACINGS IN THE SYSTEM, PATIENT WITH PAROXYSMAL ATRIAL FIBRILLATION Electronically Signed On 12-08-2016 23:33:47 EDT by Ronnie Skinner
== END ==
LOC: M LAB 11:12
PROVIDERS: ATTEND Thoracic Surgery (Cardiothoracic Vascular Surgery)
DX: Z01.818 Encounter for other preprocedural examination (principal)

== ENCOUNTER 2016-12-11 06:13 | Day surgery (SDC) | payer MEDICARE ==
[~2016-12-11] VITALS: Ht 177.8 cm; Wt 85.3 kg
[2016-12-11] MEDS ORDERED: MUPIROCIN 2% OINT 22 GM TUBE TOP ONE (06:30)
[2016-12-11] MEDS ORDERED: VANCOMYCIN HCL 1,000 MG, VIAL MATE ADAPTER 1 EACH in D5W 250 ML IV ONE (06:30)
[2016-12-11] MEDS ORDERED: MIDAZOLAM INJ 2 MG/2 ML VIAL (J2250) As Ordered ONE (07:05)
[2016-12-11] MEDS ORDERED: fentaNYL 100 MCG/2 ML INJECTION (J3010) As Ordered ONE (07:06)
[2016-12-11] MEDS ORDERED: LIDOCAINE 1% SDV INJ 30 ML VIAL As Ordered ONE (07:21)
[2016-12-11] MEDS ORDERED: HEPARIN SOD (PORCINE) 5000 UNITS/ML VIAL As Ordered ONE (07:21)
[2016-12-11] MEDS ORDERED: BUPIVACAINE LIPOSOME/PF 1.3% 20 ML VIAL (13.3MG/ML)(EXPAREL) As Ordered ONE (07:22)
--- NOTE | 2016-12-11 08:34 | REP ---
Partial chest x-ray: Two views. History: Insertion of Jknajt-A-Taeb. 35 seconds of fluoroscopy time is reported. Findings: A sequence of two last image hold fluoro spot radiographs of the chest document Ycmifg-I-Lokr catheter position. Signed by Chester Edouard MD 12/11/2016 03:01 P
--- NOTE | 2016-12-11 08:53 | REP ---
Portable chest, 08:46 a.m., single AP view, patient sitting: Comparison is 12/08/2016. There is an indwelling Yzuivi-N-Kfkp catheter entering from a left subclavian approach with the tip in the superior vena cava in satisfactory location. There is no pneumothorax. The left costophrenic angle is effaced, similar to 12/08/2016. There are linear densities in the lung parenchyma just above the effaced left costophrenic angle, unchanged. There is a calcified granuloma right lung. Lung garcia otherwise clear. Cardiac size is normal. Impression: Interval placement of an indwelling Nrpnnx-V-Lvsx catheter as described. No pneumothorax. The effacement of the left costophrenic angle is unchanged from 12/08/2016. Signed by Jewel Louis MD 12/11/2016 08:44 A
[2016-12-11] MEDS ORDERED: PROPOFOL 200 MG/20 ML VIAL As Ordered ONE (09:14)
[2016-12-11] MEDS ORDERED: LIDOCAINE 2% INJ 100 MG/5 ML SDV (FOR ANES.) As Ordered ONE (09:14)
[2016-12-11 09:55] VITALS: BP 125/64
--- NOTE | 2016-12-11 13:18 | RO ---
DATE OF PROCEDURE: 12/11/2016 PREPROCEDURE DIAGNOSIS: Need for chemotherapy, need for vascular access. POSTPROCEDURE DIAGNOSIS: Need for chemotherapy, need for vascular access. PROCEDURE: Insertion of left subclavian Vljfeu-K-Fwdg with fluoroscopic control. SURGEON: Dr. Cody Fuentes. CO TEACHER: ANESTHESIA: ESTIMATED BLOOD LOSS: FINDINGS: All contours were smooth at the end of the procedure and the catheter was positioned at the junction of the right atrium and SVC. PROCEDURE: Under satisfactory MAC anesthesia, patient was prepped and draped in usual sterile fashion. The infraclavicular fossa along with the proposed port site were infiltrated with 1% lidocaine and Exparel respectively. The vein was found on the first pass and a wire was placed without difficulty. Wire placement was confirmed with fluoroscopic control. The incision was made approximately 2 cm below the left clavicle and carried down to the subcutaneous tissue. A subcutaneous pocket was then created by use of both sharp and blunt dissection. The wire tract was incised, dilated and a dilator placed over the wire. A peel away introducer was then placed. The wire was removed and the catheter was placed low numbers down into the right atrium. A tunnel was created and the catheter pulled through the tunnel into the port site. Catheter was then positioned by fluoroscopic control. The catheter was then cut to an appropriate size, collar was placed and port was then placed on the catheter. Port was secured to the chest wall with two #2-0 silk sutures. After achieving adequate hemostasis and flushing the port with final solution of 100 units/mL of heparin, the subcutaneous tissue was closed with running #3-0 Vicryl suture and the skin was closed with running #4-0 Monocryl subcuticular suture. Patient tolerated the procedure well and left the operating room in satisfactory condition to the recovery room. It should be noted the patient was given 1 gram of vancomycin prior to the incision.
== END 2016-12-11 10:00 | disposition home or self-care (01) ==
LOC: M SDC 06:13
PROVIDERS: ATTEND Thoracic Surgery (Cardiothoracic Vascular Surgery)
DX: Z45.2 Encounter for adjustment and management of vascular access device (principal); C25.9 Malignant neoplasm of pancreas, unspecified; I71.4 Abdominal aortic aneurysm, without rupture; I10 Essential (primary) hypertension; K76.9 Liver disease, unspecified; K59.00 Constipation, unspecified; R11.10 Vomiting, unspecified; R29.898 Other symptoms and signs involving the musculoskeletal system; J44.9 Chronic obstructive pulmonary disease, unspecified; C34.90 Malignant neoplasm of unspecified part of unspecified bronchus or lung; G47.33 Obstructive sleep apnea (adult) (pediatric); R06.83 Snoring; Z88.0 Allergy status to penicillin; Z79.899 Other long term (current) drug therapy; Z92.21 Personal history of antineoplastic chemotherapy; Z96.612 Presence of left artificial shoulder joint; Z96.1 Presence of intraocular lens
CPT/HCPCS: 36561; 71010; 76000; C1788; J2250; J3010; J3370

== ENCOUNTER → 2016-12-18 | Outpatient (REF) | payer MEDICARE | LOC: M LAB REF 16:08 | PROVIDERS: ATTEND Internal Medicine Medical Oncology | DX: C25.9 Malignant neoplasm of pancreas, unspecified (principal) ==

== ENCOUNTER → 2016-12-18 | Outpatient (CLI) | payer MEDICARE ==
--- NOTE | 2016-12-18 11:30 | REP ---
Chest two views HISTORY: Pre-procedure Comparison: 12/16/2016 A calcified granuloma is present in the right lower lobe. An increase in interstitial markings is present in the lungs consistent with chronic interstitial change. Increased density is present in the left lower lobe consistent with atelectasis or infiltrate. There is blunting of the left costophrenic angle due to pleural thickening or small pleural effusion. The heart is normal in size. The pulmonary vasculature is normal in appearance. The bony structure is intact. An Mjlrav-M-Ezzs catheter is present. IMPRESSION: 1. Left lower lobe atelectasis or infiltrate unchanged compared to the previous study. 2. Chronic interstitial change. 3. There is blunting of the left costophrenic angle due to pleural thickening or a small pleural effusion. Signed by Kaleb Ledbetter MD 12/18/2016 11:21 A
== END ==
LOC: M SMT 10:43
PROVIDERS: ATTEND Thoracic Surgery (Cardiothoracic Vascular Surgery)
DX: Z01.818 Encounter for other preprocedural examination (principal); J98.4 Other disorders of lung; C25.9 Malignant neoplasm of pancreas, unspecified; Z96.89 Presence of other specified functional implants

== ENCOUNTER 2017-02-12 14:13 | Inpatient (IN) | payer MEDICARE ==
[~2017-02-12] VITALS: Ht 177.8 cm; Wt 141.5 kg
[2017-02-12] MEDS ORDERED: ONDA8TAB7 (14:22)
[2017-02-12] MEDS ORDERED: PROC10TA (14:22)
[2017-02-12] MEDS ORDERED: SODIUM CHLORIDE 0.9% INJ 10 ML SYR IV PRN (15:15)
[2017-02-12 15:28] LABS: BASO # 0.2 10^3/uL (0.0-0.2); BASO % 0.4 % (0.0-1.0); EOS # 0.4 10^3/uL (0.0-0.50); EOS % 0.9 % (0.0-3.0); LYMPH # 2.3 10^3/uL (1.5-4.5); LYMPH % 5.3 % (24.0-44.0); MEAN CORPUSCULAR HEMOGLOBIN 31.9 pg (27.0-33.0); MEAN CORPUSCULAR HGB CONC 32.2 g/dl (32.0-36.5); MEAN CORPUSCULAR VOLUME 99.3 fl (80.0-96.0); MONO % 8.1 % (0.0-5.0); RED CELL DISTRIBUTION WIDTH 19.1 % (11.5-14.5)
[2017-02-12 15:33] LABS: IMMATURE GRANULOCYTE % 15.3 % (0-0); MONO # 3.5 10^3/uL (0.0-0.8); NEUTROPHILS # 30.1 10^3/uL (1.8-7.7); PLATELET COUNT, AUTOMATED 95 10^3/uL (150-450); POS COUNT POS FLAG; POSITIVE DIFF POS FLAG; POSITIVE MORPH POS FLAG; WBC SCAT POS FLAG; WHITE BLOOD COUNT 42.9 10^3/uL (4.0-10.0)
[2017-02-12 15:34] LABS: LEFT SHIFT POS FLAG
[2017-02-12 15:37] LABS: INR 1.15
[2017-02-12 15:46] LABS: ALBUMIN 2.6 GM/DL (3.2-5.2); ALBUMIN/GLOBULIN RATIO 0.87 (1.00-1.93); ALKALINE PHOSPHATASE 136 U/L (45-117); ALT/SGPT 24 U/L (12-78); ANION GAP 6 MEQ/L (8-16); AST/SGOT 22 U/L (7-37); BILIRUBIN,DIRECT < 0.1 MG/DL (0.0-0.2); BILIRUBIN,TOTAL 0.2 MG/DL (0.2-1.0); BLOOD UREA NITROGEN 11 MG/DL (7-18); CALCIUM LEVEL 8.5 MG/DL (8.8-10.2); CARBON DIOXIDE LEVEL 28 MEQ/L (21-32); CHLORIDE LEVEL 109 MEQ/L (98-107); CREATININE FOR GFR 1.09 MG/DL (0.70-1.30); GLOMERULAR FILTRATION RATE > 60.0 (>42); GLUCOSE, FASTING 93 MG/DL (83-110); POTASSIUM SERUM 3.5 MEQ/L (3.5-5.1); SODIUM LEVEL 143 MEQ/L (136-145); TOTAL PROTEIN 5.6 GM/DL (6.4-8.2)
--- NOTE | 2017-02-12 15:53 | REP ---
AP portable chest: 02/12/2017. Comparison: 12/11/2016 chest x-ray, CT chest 01/15/2017. Clinical history: Dyspnea. Known metastatic pancreatic carcinoma. Known posterior left lung lesion. Findings: Indwelling left subclavian port catheter tip in SVC unchanged. Lungs are better inflated than the previous portable chest. Some blunting of the left CP angle that may be scar or small effusion. Basilar fibrotic changes and a small pulmonary nodule right mid lung zone unchanged. There is cardiomegaly with left atrial and ventricular enlargement. Some venous hypertension seen without ana edema. The known pleural-based mass left lower lobe is retro cardiac and cannot seen on the radiograph. It was smaller on the January CT compared to the December CTA. Tortuous aorta unchanged. Airway intact. Pulmonary arteries are prominent centrally. Impression: 1. Cardiomegaly with left atrial and left ventricular enlargement. Some venous hypertension but no ana edema. Underlying fibrosis noted. Blunting of left CP angle, suspect small effusion. 2. Pulmonary nodule right mid lung zone unchanged and the known pleural-based mass lesion left lower lobe is retrocardiac and not visible on this radiograph, it was getting smaller in December CTA and early January CT. No other finding. Signed by Amrit Ravi MD 02/13/2017 08:14 P
[2017-02-12 15:56] LABS: IMMATURE PLATELET FRACTION % 5.1 % (0.0-10.9)
[2017-02-12 16:06] LABS: BANDS 13 % (< 11); EOSINOPHILS 1 % (0-5)
[2017-02-12 16:07] LABS: ANISOCYTOSIS 2+; POLYCHROMASIA 1+
[2017-02-12] MEDS ORDERED: PANTOPRAZOLE 40MG INJ (PROTONIX) (C9113) IV ONE (17:15)
[2017-02-12] MEDS: NS 1,000 ML IV SCH (17:30)
[2017-02-12] MEDS: PANTOPRAZOLE SODIUM 40 MG in D5W 50 ML IV SCH (17:47)
[2017-02-12] MEDS ORDERED: ACETAMINOPHEN TAB 650MG DOSE (2X325MG) PO PRN (18:15)
[2017-02-12] MEDS ORDERED: ONDANSETRON 4MG/2ML VIAL (J2405) IV PRN (18:15)
[2017-02-12] MEDS ORDERED: ALBU83IN INH (18:33)
[2017-02-12] MEDS ORDERED: ZOLP10TA2 PO (18:33)
[2017-02-12] MEDS ORDERED: GASTROGRAFIN SOLUTION 30ML PO ONE (18:40)
[2017-02-12] MEDS ORDERED: GASTROGRAFIN SOLUTION 30ML (Q9963) PO ONE (19:10)
[2017-02-12] MEDS ORDERED: ALBUTEROL 90 MCG/ACT 8GM HFA INHALER INH PRN (20:30)
--- NOTE | 2017-02-12 20:49 | HPEPDOC ---
General Date of Admission 02/12/2017 Other Providers Primary care provider: Dr. Vera at the [facility] Traveling Engineer/oncologist: Dr. Ruelas Attending Physician: VIVEK MEEKS MD Chief Complaint The patient is a 71-year-old male admitted with a reason for visit of SOB. Source: Patient, Family, RN notes reviewed, Old records Exam Limitations: No limitations Timing/Duration: 24 hours Associated Symptoms: Chest Pain, Shortness of breath History of Present Illness Mr. Gross is a 71-year-old male who presents to [facility]'s Emergency Department with melanotic stools. He is accompanied by his . 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 Patient states that he has had five liquid bowel movements that are black in color. It started yesterday. He felt as though he had the urge to defecate before the initial bowel movement. Admits to minimal epistaxis when he blows his nose and cutaneous petechia without pruritis, but denies hematemesis, hemoptysis, hematuria. Further denies bright red blood per rectum. Approximately two months ago patient began experiencing constant, sharp lower abdominal pain. The pain would double him over. Each painful episodes would last approximately 10-15 minutes and would occasionally improve with bowel movements. However, he denies any lower abdominal pain currently. Over a long period (patient unable to quantify) he has been experiencing shortness of breath that is present at rest and with exertion. He has a history of COPD, but states that his inhalers that usually improve his shortness of breath were not effective today. Also admits to vocal hoarseness that has also been present for a while (patient unable to quantify) with associated dry throat and mouth. He has been consuming a lot of fluids due to this. Has also experienced a dry cough over the last week, but denies fever, night sweats, or chills. Describes a centrally localized chest pain (and points to his sternum/ xiphoid process) that does not radiate or cause him to have a bad taste in his posterior pharynx. The pain is intermittent and describes it as a "pinch." Although he has not difficulty swallowing he has not had much of an appetite. He initially lost approximately 30 pounds before his cancer diagnosis, but has regained approximately 2 pounds over the last 6 weeks. Admits to chronic low back and right shoulder pain. Hospitalist service was consulted for further medical management. Home Medications Scheduled Apixaban Base (Eliquis) 5 Mg Tab, 5 MG PO BID, (Reported) Tiotropium Krebs Monohydrate (Spiriva Handihaler) 5 Inhalation/Inhaler Powd, 1 INHALATION INH DAILY, (Reported) Zolpidem Tartrate (Zolpidem Tartrate) 10 Mg Tab, 10 MG PO QHS, (Reported) Scheduled PRN Albuterol Sulfate (Proair Hfa) 108 Mcg/Act Aer, 2 PUFF INH Q4H PRN for SHORTNESS OF BREATH, (Reported) Albuterol Sulfate (Albuterol Sulfate) 2.5 Mg/3 Ml Nebu, 2.5 MG INH Q6H PRN for SHORTNESS OF BREATH, (Reported) Allergies Coded Allergies: Penicillins (Verified Allergy, Intermediate, hives, 12/08/16) Past Medical History Medical History 1. Metastatic pancreatic carcinoma to lung 2. Paroxysmal atrial fibrillation 3. Superior mesenteric vein thrombosis 4. Grade 1 diastolic congestive heart failure 5. Chronic obstructive pulmonary disease 6. Insomnia Surgical History 1. Left subclavian port catheter 2. Biliary sphincterotomy 3. ERCP 4. Right knee arthroplasty 5. Left shoulder repair 6. Hernia repair 7. Abdominal surgery as child Family History Father: , 79, myocardial infarction Mother: , 74, CVA Siblings: - Sister: Alive, 64-5, heart disease - Sister: Alive, healthy - Brother: Alive, 66, atrial fibrillation - Brother: Alive, healthy Social History Lives with . Prior employment with the [employer]. Two adult daughter - one is mentally handicapped. One adult son. One grandchild. Denies pets in the home. Former tobacco user - 50 pack year history. Used to consume EtOH - moderately/binge drinker. Does not current consume EtOH. Denies illicit drug use. Traveled extensively with the . Review of Symptoms Constitutional: Reports: Weight Loss, Denies: Chills, Fever, Night Sweats, Weakness Eyes: Denies: Pain, Vision change ENT: Reports: Epistaxis (Minimal when he blows his nose), Denies: Head Aches, Dysphagia, Sinus Congestion, Post Nasal Drip, Sore Throat Skin: Reports: Rash (Petechiae noted on upper extremities bilaterally), Denies: Lesions, Jaundice, Bruising, Itching Pulmonary: Reports: Dyspnea, Cough (Dry), Denies: Pleuritic Chest Pain Cardiovascular: Reports: Chest Pain (Localized to anterior chest, sternum/ xiphoid process), Denies: Palpitations, Edema, Lt Headedness Gastrointestinal: Reports: Abdominal Pain (Lower abdomen/pelvis), Diarrhea (5x loose/liquid black stools), Melena, Denies: Nausea, Vomiting, Constipation, Hematochezia Genitourinary: Denies: Dysuria, Frequency, Incontinence, Hematuria Hematologic: Reports: Petecchia, Denies: Bruising, Purpura, Enlarged Lymph Nodes Endocrine: Reports: Polydipsia, Denies: Polyphagia, Polyuria Musculoskeletal: Reports: Back Pain, Shoulder Pain (Left), Denies: Neck Pain, Joint Pain, Muscle Pain Neurological: Denies: Weakness, Numbness Physical Examination General Exam: Positive: Alert, Cooperative, No Acute Distress Eye Exam: Positive: PERRLA, Conjunctiva & lids normal, EOMI, Negative: Sclera icteric, Ptosis ENT Exam: Positive: Atraumatic, Mucous membr. moist/pink, Pharynx Normal, Tongue Midline, Nares Patent, Negative: Pharyngeal Edema Neck Exam: Positive: Supple, +2 carotid pulse wo bruit, Negative: JVD, thyromegaly, Lymphadenopathy Chest Exam: Positive: Clear to auscultation, Rhonchi (Bilateral lower lobes), Diminished Heart Exam: Positive: Rate Normal, Tachycardic, Regular Rhythm, Normal S1, Normal S2, Negative: Gallops, Murmurs, Rubs Telemetry: Positive: Tachycardia Abdomen Exam: Positive: Normal bowel sounds, BS Hyperactive, Soft, Tenderness, Other (Guarding in lower abdomen/pelvis), Negative: Hepatospenomegaly, Mass, Hernia Extremity Exam: Positive: Normal pulses, Negative: Clubbing, Cyanosis, Edema, Tenderness, Swelling Skin Exam: Positive: Rash (Petechiae noted on upper extremities bilaterally), Negative: Lesion, Pruritus Neuro Exam: Positive: Normal Speech, Cranial Nerves 3-12 NL Psych Exam: Positive: Oriented x 3 Other physical findings Chest x-ray, one view IMPRESSION: 1. Cardiomegaly with left atrial and left ventricular enlargement. Some venous hypertension but no ana edema. Underlying fibrosis noted. Blunting of left CP angle, suspect small effusion. 2. Pulmonary nodule right mid lung zone unchanged and the known pleural-based mass lesion left lower lobe is retrocardiac and not visible on this radiograph, it was getting smaller in December CTA and early January CT. No other finding. Vital Signs Vital Signs Date Time Temp Pulse Resp B/P (MAP) Pulse Ox O2 Delivery O2 Flow Rate FiO2 02/12/17 16:46 135/68 (90) 02/12/17 16:43 96 02/12/17 14:43 96 02/12/17 14:14 99.2 16 Room Air Height (in): 70 Weight (kg): 86.36 BMI (kg): 27.3 Laboratory Data Labs 24H Laboratory Tests 2 02/12/17 15:09: Immature Granulocyte % (Auto) 15.3H, White Blood Count 42.9*H, Red Blood Count 2.88L, Hemoglobin 9.2L, Hematocrit 28.6L, Mean Corpuscular Volume 99.3H, Mean Corpuscular Hemoglobin 31.9, Mean Corpuscular Hemoglobin Concent 32.2, Red Cell Distribution Width 19.1H, Platelet Count 95L, Neutrophils (%) (Auto) 70.0H, Lymphocytes (%) (Auto) 5.3L, Monocytes (%) (Auto) 8.1H, Eosinophils (%) (Auto) 0.9, Basophils (%) (Auto) 0.4, Neutrophils # (Auto) 30.1H, Lymphocytes # (Auto) 2.3, Monocytes # (Auto) 3.5H, Eosinophils # (Auto) 0.4, Basophils # (Auto) 0.2, Immature Granulocyte # (Auto) 6.6H, Nucleated Red Blood Cells % (auto) 0.4H, Neutrophils 65, Band Neutrophils 13H, Lymphocytes (Manual) 7L, Monocytes (Manual ) 2, Eosinophils (Manual) 1, Metamyelocytes 7H, Myelocytes 4H, Promyelocytes 1H , Platelet Estimate DECREASED, Immature Platelet Fraction 5.1, Polychromasia 1+ , Anisocytosis 2+, Prothrombin Time 14.9H, Prothromb Time International Ratio 1.15, Activated Partial Thromboplast Time 31.9, Anion Gap 6L, Glomerular Filtration Rate > 60.0, Calcium Level 8.5L, Aspartate Amino Transf (AST/SGOT) 22 , Alanine Aminotransferase (ALT/SGPT) 24, Alkaline Phosphatase 136H, Total Bilirubin 0.2, Direct Bilirubin < 0.1, Total Protein 5.6L, Albumin 2.6L, Albumin /Globulin Ratio 0.87L 02/12/17 18:10: Lactic Acid Level 1.2, C-Reactive Protein, Quantitative 1.45H CBC/BMP Laboratory Tests 02/12/17 15:09 Red Blood Count 2.88 L, Mean Corpuscular Volume 99.3 H, Mean Corpuscular Hemoglobin 31.9, Mean Corpuscular Hemoglobin Concent 32.2, Red Cell Distribution Width 19.1 H, Neutrophils (%) (Auto) 70.0 H, Lymphocytes (%) (Auto ) 5.3 L, Monocytes (%) (Auto) 8.1 H, Eosinophils (%) (Auto) 0.9, Basophils (%) ( Auto) 0.4, Neutrophils # (Auto) 30.1 H, Lymphocytes # (Auto) 2.3, Monocytes # ( Auto) 3.5 H, Eosinophils # (Auto) 0.4, Basophils # (Auto) 0.2 02/12/17 18:10 Microbiology Microbiology 02/12/17 Blood Culture, Received Pending Plan / VTE VTE Prophylaxis Ordered?: Yes (TEDs, sequentials, knee high compression) Plan Plan 1. GI bleed: No signs suggestive that patient requires immediate transfusion at this time. Two units have been ordered and available should patient require them. Consent signed and in chart. Serial H/H every 6 hours. Stop anticoagulation. Clear liquid diet. Could consider consulting GI should the need arise. Obtaining CRP/ESR (both are elevated), lactic acid (1.2), and blood cultures. Obtaining orthostatic VS. 2. Leukocytosis: Patient receives Nulasta as part of his chemotherapy regimen. Leukocytosis likely a result of that. Monitor with daily CBC. 3. Abdominal pain: Obtaining CT abdomen and pelvis. Afebrile. 4. Shortness of breath: Likely related to anemia and underlying COPD. Continuing with home medications for COPD. If shortness of breath worsens could consider transfusing blood. 5. Metastatic pancreatic carcinoma to lung: Patient receiving chemotherapy weekly for three weeks with a week off. Patient has received 10 chemotherapy treatments. No radiation. Follows with an oncologist in [place], [place]. Discussed with patient that cancer is incurable. Patient has unrealistic expectations of cancer outcomes. MOLST form signed at today's admission. Patient admits to signing DNR at prior encounter. 6. Paroxysmal atrial fibrillation: Due to melanotic stools have held anticoagulation. Have discussed risks associated with discontinuing therapy at this time, but has also discussed reason for discontinuation. 7. COPD: Continue with current home medication regimen. Disposition Admit: PCU Anticipated hospitalization: 2 nights Attending; Dr. Kendall CODE STATUS: DNR/DNI IVF: Initiate (NS @100mLshr) Diet: Continue Current (Clear liquids) Activity: Continue Current (Acitivty at tolerated) Diagnostics: Check Labs, Repeat Labs in AM, Obtain Cultures Anticipated Discharge: Home MELISSA LARA DO Feb 12, 2017 19:26
--- NOTE | 2017-02-12 20:50 | REPUSA ---
CT of the abdomen and pelvis without contrast Clinical statement: Pain. Technique: Multiple axial CT images were obtained from the base of the lungs to the floor of the pelv is utilizing 5 mm axial slices without administration of contrast. Coronal and sagittal reconstructio ns were also obtained. Comparison: 11/21/2016. Findings: Chest: The visualized lung bases are clear. Abdomen: The kidneys are normal in size bilaterally. A large simple cyst in the lateral right kidney measures up to 4.4 cm. There is no evidence of hydronephrosis or nephrolithiasis. Internal biliary st ent is in place and appears to be patent. Biliary pneumatosis is noted. The liver is otherwise unrema rkable. The spleen, pancreas, gallbladder and adrenal glands are unremarkable. The aorta demonstrates stable atherosclerotic changes, with normal caliber and contour. There is no abdominal lymphadenopat hy or ascites. Pelvis: The bowel is unremarkable, with no obstructive or inflammatory changes. The urinary bladder i s within normal limits. There is no pelvic lymphadenopathy or ascites. The other pelvic structures ap pear unremarkable. Bones: There are no suspicious osseous abnormalities seen. There is minimal degenerative disc disease at L2/L3. Impression: 1. Internal biliary stent is patent. Biliary pneumatosis appear stable. 2. No evidence of hydronephrosis or nephrolithiasis. Simple right renal cyst. 3. Mild degenerative disc disease at L2/L3. 4. No obstructive or inflammatory bowel changes. 5. Other CT findings are stable.
[2017-02-12] MEDS: zolPIDEM TARTRATE 5 MG TAB PO SCH (21:00)
[2017-02-13] MEDS: PANTOPRAZOLE SODIUM 40 MG in D5W 50 ML IV SCH ×6 (00:30→23:27)
[2017-02-13] MEDS: NS 1,000 ML IV SCH ×3 (03:15→23:08)
[2017-02-13 06:30] LABS: MEAN CORPUSCULAR HEMOGLOBIN 32.6 pg (27.0-33.0); MEAN CORPUSCULAR HGB CONC 32.6 g/dl (32.0-36.5); PLATELET COUNT, AUTOMATED 100 10^3/uL (150-450); RED CELL DISTRIBUTION WIDTH 19.6 % (11.5-14.5)
[2017-02-13 06:42] LABS: LEFT SHIFT POS FLAG; POS COUNT POS FLAG; POSITIVE DIFF POS FLAG; POSITIVE MORPH POS FLAG; WBC SCAT POS FLAG
[2017-02-13 06:43] LABS: ADD MANUAL DIFFER YES; DIFF SLIDE NUMBER 98; WHITE BLOOD COUNT 38.1 10^3/uL (4.0-10.0)
[2017-02-13 06:49] LABS: ANION GAP 7 MEQ/L (8-16); BLOOD UREA NITROGEN 7 MG/DL (7-18); CALCIUM LEVEL 7.7 MG/DL (8.8-10.2); CARBON DIOXIDE LEVEL 26 MEQ/L (21-32); CHLORIDE LEVEL 111 MEQ/L (98-107); CREATININE FOR GFR 0.92 MG/DL (0.70-1.30); GLOMERULAR FILTRATION RATE > 60.0 (>42); GLUCOSE, FASTING 90 MG/DL (83-110); SODIUM LEVEL 144 MEQ/L (136-145)
[2017-02-13 07:17] LABS: BANDS 3 % (< 11); EOSINOPHILS 2 % (0-5)
[2017-02-13 07:18] LABS: HYPOCHROMASIA 1+; POLYCHROMASIA 2+
[2017-02-13 08:00] VITALS: BP 129/65
[2017-02-13] MEDS ORDERED: TIOTROPIUM INHALER/CAPSULE (SPIRIVA) INH SCH (09:00)
--- NOTE | 2017-02-13 13:59 | IPNPDOC ---
Text Note Date of Service The patient was seen on 02/13/17. NOTE Subjective: Patient is a 71 year old male with a PMHx of Metastatic pancreatic CA (on chemotherapy, follows with Dr. Giron), Paroxysmal atrial fibrillation, SMV thrombosis, Diastolic CHF (Grade 1), COPD and insomnia who presented to the ER with melanotic stools. He noted that he last had a bowel movement on 02/11. Patient was seen and examined at the bedside. Currently, he denies any lightheadedness, dizziness, shortness of breath, palpitations or cough. He has not had a bowel movement since his admission. Denies any nausea, vomiting or abdominal pain. Objective: Vitals (See below) General: Lying in bed, no acute distress, comfortable, AAOx3 HEENT: NC, AT CVS: RRR, +S1S2 Lungs: Fair air entry b/l, -w/r/r Abdomen: Soft, ND, NT Extremities: - Edema, - Calf tenderness Assessment and plan: Melanotic stools - likely 2/2 upper GI bleed - Presented with melanotic stools for 1 day duration than on a lipase for paroxysmal atrial fibrillation and SMV thrombosis - Physical is nonrevealing, remains hemodynamically stable - Hemoglobin has been followed over last every 6 hours has remained stable - 2 units of PRBC are available, however not transfused at this time - Continue to follow hemoglobin every 6 hours - c/w Protonix drip - Case has been discussed with gastroenterology (Dr. Reyes) will be on consult ; we appreciate their input; will probably have EGD performed this hospitalization Leukocytosis - likely 2/2 Neulasta - Leukocytosis has been improving - Review of systems negative for any signs of infection - Remains afebrile - Will hold off on antibiotics at this point s/p Abdominal pian s/p SOB Metastatic pancreatic carcinoma - Stage IV - Evidence of metastatic lesions to lung - Follows with Dr. Nusrat Ruelas as an outpatient - Currently on chemotherapy; next session scheduled for Sunday - Patient is DNR Paroxysmal atrial fibrillation - Telemetry strip reveals normal sinus rhythm - Currently not on any rate control - Anticoagulation with Eliquis will be held COPD - No evidence of exacerbation at this time - c/w Viborg's and albuterol GI prophylaxis - c/w Protonix DVT prophylaxis - c/w SCDs VS,Fishbone, I+O VS, Fishbone, I+O Laboratory Tests 02/12/17 15:09 Red Blood Count 2.88 L, Mean Corpuscular Volume 99.3 H, Mean Corpuscular Hemoglobin 31.9, Mean Corpuscular Hemoglobin Concent 32.2, Red Cell Distribution Width 19.1 H, Neutrophils (%) (Auto) 70.0 H, Lymphocytes (%) (Auto ) 5.3 L, Monocytes (%) (Auto) 8.1 H, Eosinophils (%) (Auto) 0.9, Basophils (%) ( Auto) 0.4, Neutrophils # (Auto) 30.1 H, Lymphocytes # (Auto) 2.3, Monocytes # ( Auto) 3.5 H, Eosinophils # (Auto) 0.4, Basophils # (Auto) 0.2 02/12/17 18:10 02/13/17 02:58 02/13/17 06:11 Red Blood Count 2.70 L, Mean Corpuscular Volume 100.0 H, Mean Corpuscular Hemoglobin 32.6, Mean Corpuscular Hemoglobin Concent 32.6, Red Cell Distribution Width 19.6 H, Neutrophils (%) (Auto) , Lymphocytes (%) (Auto) , Monocytes (%) (Auto) , Eosinophils (%) (Auto) , Basophils (%) (Auto) , Neutrophils # (Auto) , Lymphocytes # (Auto) , Monocytes # (Auto) , Eosinophils # (Auto) , Basophils # (Auto) , Calcium Level 7.7 L 02/13/17 09:19 Vital Signs Date Time Temp Pulse Resp B/P (MAP) Pulse Ox O2 Delivery O2 Flow Rate FiO2 02/13/17 12:00 Room Air 02/13/17 08:00 97.9 82 16 129/65 (86) 93 I&O- Last 24 Hours up to 6 AM 02/14/17 06:00 Intake Total 790 ml Output Total 900 ml Balance -110 ml BAMBI ANGEL MD Feb 13, 2017 13:59
[2017-02-13] MEDS ORDERED: MOM 30ML SUSPENSION UDC PO ONE (14:00)
[2017-02-13] MEDS: TIOTROPIUM INHALER/CAPSULE (SPIRIVA) INH SCH (14:09)
[2017-02-13 15:15] VITALS: BP 134/72
[2017-02-13 16:00] VITALS: BP 130/69
[2017-02-13 20:00] VITALS: BP 121/67
[2017-02-13] MEDS: zolPIDEM TARTRATE 5 MG TAB PO SCH (20:49)
[2017-02-14] VITALS (7 sets, daily range): BP systolic 113–145; BP diastolic 61–84
[2017-02-14] MEDS: PANTOPRAZOLE SODIUM 40 MG in D5W 50 ML IV SCH (04:04)
[2017-02-14] MEDS ORDERED: SODIUM CHLORIDE 0.9% INJ 10 ML SYR IV PRN (06:45)
[2017-02-14 07:25] LABS: ANION GAP 8 MEQ/L (8-16); BLOOD UREA NITROGEN 6 MG/DL (7-18); CARBON DIOXIDE LEVEL 26 MEQ/L (21-32); CHLORIDE LEVEL 109 MEQ/L (98-107); CREATININE FOR GFR 0.92 MG/DL (0.70-1.30); GLOMERULAR FILTRATION RATE > 60.0 (>42); GLUCOSE, FASTING 90 MG/DL (83-110); POTASSIUM SERUM 3.9 MEQ/L (3.5-5.1); SODIUM LEVEL 143 MEQ/L (136-145)
[2017-02-14 07:27] LABS: MEAN CORPUSCULAR HEMOGLOBIN 32.1 pg (27.0-33.0); MEAN CORPUSCULAR HGB CONC 32.2 g/dl (32.0-36.5); MEAN CORPUSCULAR VOLUME 99.7 fl (80.0-96.0); RED CELL DISTRIBUTION WIDTH 20.1 % (11.5-14.5)
[2017-02-14 07:47] LABS: PLATELET COUNT, AUTOMATED 96 10^3/uL (150-450); POSITIVE MORPH POS FLAG; WHITE BLOOD COUNT 32.1 10^3/uL (4.0-10.0)
[2017-02-14] MEDS ORDERED: fentaNYL 100 MCG/2 ML INJECTION (J3010) As Ordered ONE (07:47)
[2017-02-14] MEDS ORDERED: PROPOFOL 200 MG/20 ML VIAL As Ordered ONE (07:47)
[2017-02-14] MEDS ORDERED: LIDOCAINE 2% INJ 100 MG/5 ML SDV (FOR ANES.) As Ordered ONE (07:47)
[2017-02-14 07:48] LABS: ADD MANUAL DIFFER YES; DIFF SLIDE NUMBER 65; LEFT SHIFT POS FLAG; POS COUNT POS FLAG
[2017-02-14] MEDS: TIOTROPIUM INHALER/CAPSULE (SPIRIVA) INH SCH (08:00)
[2017-02-14 08:03] LABS: IMMATURE PLATELET FRACTION % 6.1 % (0.0-10.9)
[2017-02-14 08:37] LABS: BANDS 4 % (< 11); EOSINOPHILS 2 % (0-5)
[2017-02-14 08:39] LABS: POLYCHROMASIA 1+
--- NOTE | 2017-02-14 08:52 | ROOR ---
Patient Name: Saeed Gross Procedure Date: 02/14/2017 8:03 AM Date of : 1945 Age: 71 Room: Main OR Gender: Male Note Status: Finalized Procedure: Upper GI endoscopy Indications: Acute post hemorrhagic anemia, Melena Providers: Fermín REYES MD Referring MD: Damian Vera Md, Nusrat Ruelas MD, 2. Inpatient 2. Inpatient Requesting Provider: Medicines: Monitored Anesthesia Care Complications: No immediate complications. Procedure: Pre-Anesthesia Assessment: - The heart rate, respiratory rate, oxygen saturations, blood pressure, adequacy of pulmonary ventilation, and response to care were monitored throughout the procedure. The Endoscope was introduced through the mouth, and advanced to the second part of duodenum. The upper GI endoscopy was accomplished without difficulty. The patient tolerated the procedure well. Findings: Two columns of non-bleeding grade I-II varices were found in the lower third of the esophagus and at the gastroesophageal junction. Stigmata of recent bleeding were evident by a small adherent blood clot. Four bands were successfully placed with complete eradication, resulting in deflation of varices. The exam was otherwise without abnormality. Impression: - Recently bleeding grade I-II esophageal varices. Completely eradicated. Banded. - A metal biliary stent was seen in the area of the papilla. - The examination was otherwise normal. - No specimens collected. Recommendation: - Observe patient's clinical course. - Repeat upper endoscopy in 1 month for retreatment. - Upon discharge, start/continue a Non-selective Beta Mimi such as Propranolol or Nadolol, titrate to heart rate. Fermín Reyes MD Fermín REYES MD 02/14/2017 8:51:56 AM This report has been signed electronically. Number of Addenda: 0 Note Initiated On: 02/14/2017 8:03 AM Estimated Blood Loss: Estimated blood loss: none.
[2017-02-14] MEDS ORDERED: ONDANSETRON 4MG/2ML VIAL (J2405) IV PRN (09:00)
[2017-02-14] MEDS: SODIUM CHLORIDE 0.9% INJ 10 ML SYR IV SCH (09:00)
[2017-02-14] MEDS ORDERED: LR 1,000 ML IV SCH (09:00)
--- NOTE | 2017-02-14 13:01 | IPNPDOC ---
Text Note Date of Service The patient was seen on 02/14/17. NOTE Subjective: Patient is a 71 year old male with a PMHx of Metastatic pancreatic CA (on chemotherapy, follows with Dr. Giron), Paroxysmal atrial fibrillation, SMV thrombosis, Diastolic CHF (Grade 1), COPD and insomnia who presented to the ER with melanotic stools. He noted that he last had a bowel movement on 02/11. Patient was seen and examined at the bedside. Patient has had a bowel movement this morning notes that it is not as dark as it was before. He denies any lightheadedness, dizziness, shortness of breath or palpitations. Denies abdominal pain. He is seen status post EGD in the recovery room. Objective: Vitals (See below) General: Lying in bed, no acute distress, comfortable, AAOx3 HEENT: NC, AT CVS: RRR, +S1S2 Lungs: Fair air entry b/l, -w/r/r Abdomen: Soft, ND, NT Extremities: - Edema, - Calf tenderness Assessment and plan: Melanotic stools - likely 2/2 upper GI bleed - 2/2 esophageal varices - Presented with melanotic stools for 1 day duration than on a lipase for paroxysmal atrial fibrillation and SMV thrombosis - Physical is nonrevealing, remains hemodynamically stable - H&H remain stable - Has not required transfusions - EGD 02/14: Evidence of Grade I-II non-bleeding esophageal varices; - Will change Protonix to IV BID dosing - Gastroenterology (Dr. Reyes) on consult; appreciate their input - Will c/w clear liquid diet for today; advance to full liquid tomorrow Leukocytosis - likely 2/2 Neulasta - Leukocytosis continues to improve; trending down - Review of systems negative for any signs of infection - Remains afebrile - No antibiotics at this time s/p Abdominal pain s/p SOB Metastatic pancreatic carcinoma - Stage IV - Evidence of metastatic lesions to lung - Follows with Dr. Nusrat Ruelas as an outpatient - Currently on chemotherapy; next session scheduled for Sunday - Patient is DNR Paroxysmal atrial fibrillation - Telemetry strip reveals normal sinus rhythm - Currently not on any rate control - Anticoagulation with Eliquis will be held; will not be resumed indefinitely COPD - No evidence of exacerbation at this time - c/w Rob's and albuterol GI prophylaxis - c/w Protonix DVT prophylaxis - c/w SCDs VS,Fishbone, I+O VS, Padminie, I+O Laboratory Tests 02/13/17 14:50 02/13/17 20:56 02/14/17 06:48 Red Blood Count 2.90 L, Mean Corpuscular Volume 99.7 H, Mean Corpuscular Hemoglobin 32.1, Mean Corpuscular Hemoglobin Concent 32.2, Red Cell Distribution Width 20.1 H, Calcium Level 8.0 L Vital Signs Date Time Temp Pulse Resp B/P (MAP) Pulse Ox O2 Delivery O2 Flow Rate FiO2 02/14/17 09:15 98.1 75 16 124/65 (84) 94 Nasal Cannula 2 I&O- Last 24 Hours up to 6 AM 02/15/17 06:00 Intake Total 470 ml Balance 470 ml BAMBI ANGEL MD Feb 14, 2017 13:01
[2017-02-14] MEDS: LIDOCAINE VISCOUS 2% SOLN 15ML UDC PO PRN (19:45)
[2017-02-14] MEDS: zolPIDEM TARTRATE 5 MG TAB PO SCH (21:27)
[2017-02-14] MEDS: PANTOPRAZOLE 40MG INJ (PROTONIX) (C9113) IV SCH (21:27)
[2017-02-15 03:30] VITALS: BP_SYST 124; BP_SYST 128; BP_SYST 131; BP_DIAS 66; BP_DIAS 69
[2017-02-15 05:55] LABS: MEAN CORPUSCULAR HEMOGLOBIN 32.3 pg (27.0-33.0); MEAN CORPUSCULAR HGB CONC 32.2 g/dl (32.0-36.5); MEAN CORPUSCULAR VOLUME 100.3 fl (80.0-96.0); PLATELET COUNT, AUTOMATED 115 10^3/uL (150-450); RED CELL DISTRIBUTION WIDTH 20.1 % (11.5-14.5); WHITE BLOOD COUNT 28.4 10^3/uL (4.0-10.0)
[2017-02-15 05:56] LABS: POS COUNT POS FLAG; POSITIVE MORPH POS FLAG
[2017-02-15 05:57] LABS: ADD MANUAL DIFFER YES; DIFF SLIDE NUMBER 51; LEFT SHIFT POS FLAG
[2017-02-15 06:10] LABS: ANION GAP 9 MEQ/L (8-16); BLOOD UREA NITROGEN 6 MG/DL (7-18); CARBON DIOXIDE LEVEL 26 MEQ/L (21-32); CHLORIDE LEVEL 108 MEQ/L (98-107); CREATININE FOR GFR 0.92 MG/DL (0.70-1.30); GLOMERULAR FILTRATION RATE > 60.0 (>42); GLUCOSE, FASTING 88 MG/DL (83-110); POTASSIUM SERUM 3.6 MEQ/L (3.5-5.1); SODIUM LEVEL 143 MEQ/L (136-145)
[2017-02-15 07:10] LABS: BANDS 13 % (< 11); EOSINOPHILS 3 % (0-5)
[2017-02-15 07:12] LABS: ANISOCYTOSIS 2+
[2017-02-15 07:14] LABS: TOXIC GRANULATION 1+
[2017-02-15 08:00] VITALS: BP 132/65
[2017-02-15] MEDS: PANTOPRAZOLE 40MG INJ (PROTONIX) (C9113) IV SCH (08:35)
[2017-02-15] MEDS: SODIUM CHLORIDE 0.9% INJ 10 ML SYR IV SCH (08:35)
[2017-02-15] MEDS: LIDOCAINE VISCOUS 2% SOLN 15ML UDC PO PRN (08:37)
[2017-02-15] MEDS ORDERED: PROP1TAB29 PO (10:02)
[2017-02-15] MEDS ORDERED: PROT1TAB2 PO (10:02)
--- NOTE | 2017-02-15 14:29 | DSES ---
DATE OF ADMISSION: 02/12/2017 DATE OF DISCHARGE: 02/15/2017 ATTENDING PHYSICIAN: Dr. Luh Kendall DICTATED BY: Dr. Luh Kendall PRIMARY CARE PHYSICIAN: Dr. Lorna Tse REFERRING PHYSICIAN: None. CONSULTING PHYSICIAN: Dr. Reyes. CONDITION AT DISCHARGE: Stable. FINAL DIAGNOSIS: Melanotic stools, likely secondary to upper GI bleed likely secondary to esophageal varices. PROCEDURES: Esophagogastroduodenoscopy (EGD) performed on 02/14/[address] Reyes. HISTORY OF PRESENT ILLNESS: The patient is a 71-year-old male with a past medical history of metastatic pancreatic cancer on chemotherapy who follows with Dr. Nusrat Ruelas, paroxysmal atrial fibrillation, superior mesenteric vein (SMV) thrombosis, diastolic congestive heart failure grade I, chronic obstructive pulmonary disease (COPD) and insomnia who presented to the emergency room (ER) with melanotic stools. HOSPITAL COURSE: 1. Melanotic stools secondary to upper GI bleed secondary to esophageal varices. He presented with melanotic stools for one day duration and was on Eliquis for paroxysmal atrial fibrillation and SMV thrombosis. Physical was nonrevealing. He remained hemodynamically stable throughout the hospital course. His hemoglobin and hematocrit (H and H) remained stable. He did not require any transfusions. EGD was done by Dr. Reyes on 02/14/2017 and revealed that there was evidence of grade 1-2 non bleeding esophageal varices. The patient's Protonix initially were put on a drip prior to the procedure and after the procedure it was changed to Protonix IV twice a day and he has been discharged home with Protonix daily. Dr. Reyes was consulted. We appreciate his input. Upon discharge, the patient was sent home with a dose of propranolol 20 mg to be taken twice a day for prophylaxis against his esophageal varices. The patient's diet was advanced through the hospital course and he has been tolerating it. The patient will be following up with his primary care provider as well as Dr. Reyes and Dr. Nusrat Ruelas in the next seven days. 2. Leukocytosis, likely secondary to Neulasta. Leukocytosis continues to improve, it has been trending down. Review of systems is negative for any signs of infection. He has remained afebrile. No antibiotics were started. 3. Status post abdominal pain. 4. Status post shortness of breath. 5. Metastatic pancreatic carcinoma Stage IV, evidence of metastatic disease to lung. Follows with Dr. Nusrat Ruelas as an outpatient. Currently on chemotherapy, next scheduled session is for Sunday. I have called and discussed the case with Dr. Nusrat Ruelas. The patient will be following up with her on Sunday. He will be reevaluated prior to restarting chemotherapy. 6. Paroxysmal atrial fibrillation. Telemetry strip revealed normal sinus rhythm. Currently not on any rate control. Anticoagulation with Eliquis will be stopped indefinitely. 7. COPD. No evidence of exacerbation at this time. Continue with Spiriva and albuterol. 8. Gastrointestinal (GI) prophylaxis. Continue with Protonix. 9. Deep vein thrombosis (DVT) prophylaxis. Has been put on sequential compression devices. DISCHARGE MEDICATIONS: Patient has been discharged home on the following medication list. - Protonix 40 mg by mouth daily - propranolol 20 mg by mouth twice a day - albuterol 2 puffs inhaled every 4 hours as needed shortness of breath - albuterol 2.5 mg inhaled every 6 hours as needed shortness of breath - Spiriva one inhalation daily - Zolpidem 10 mg by mouth at bedtime Stopped medications include Eliquis 5 mg by mouth twice a day DISCHARGE INSTRUCTIONS: Patient has been advised to follow up with his primary care provider who is Lorna Tse as well as Dr. Reyes as well as Dr. Nusrat Ruelas within the next 7 days. He has been advised to remain compliant with treatment and medications and will return to the emergency room if he experiences any problems. TIME SPENT ON DISCHARGE: Greater than 35 minutes.
== END 2017-02-15 12:40 | disposition home or self-care (01) | DRG 369 ==
LOC: M ED 14:13 → M ED INP 19:18 → M PCU 02-14 14:21
PROVIDERS: ADMIT Internal Medicine; ATTEND Internal Medicine
PROC: 0W3P8ZZ Control Bleeding in Gastrointestinal Tract, Via Natural or Artificial Opening Endoscopic (ICD-10-PCS; principal; 2017-02-14 07:30)
DX: I85.01 Esophageal varices with bleeding (principal); I50.32 Chronic diastolic (congestive) heart failure; C25.9 Malignant neoplasm of pancreas, unspecified; C78.00 Secondary malignant neoplasm of unspecified lung; D72.829 Elevated white blood cell count, unspecified; J44.9 Chronic obstructive pulmonary disease, unspecified; D64.9 Anemia, unspecified; G47.00 Insomnia, unspecified; I48.0 Paroxysmal atrial fibrillation; Z66 Do not resuscitate; Z86.718 Personal history of other venous thrombosis and embolism; Z79.899 Other long term (current) drug therapy; Z88.0 Allergy status to penicillin; Z96.651 Presence of right artificial knee joint; Z87.891 Personal history of nicotine dependence

== ENCOUNTER → 2017-02-19 | Outpatient (REF) | payer MEDICARE ==
[~2017-02-19] MED LIST changes: +ALBU83IN INH; +ONDA8TAB7; +PROC10TA; +PROP1TAB29 PO; +PROT1TAB2 PO; +ZOLP10TA2 PO
== END ==
LOC: M LAB REF 18:46
PROVIDERS: ATTEND Internal Medicine Medical Oncology
DX: C25.9 Malignant neoplasm of pancreas, unspecified (principal)

== ENCOUNTER → 2017-03-06 | Outpatient (REF) | payer MEDICARE ==
[2017-03-06 18:32] LABS: PERCENT SATURATION 8.9 % (19.7-50.0)
== END ==
LOC: M LAB REF 16:47
PROVIDERS: ATTEND Internal Medicine Medical Oncology
DX: C25.9 Malignant neoplasm of pancreas, unspecified (principal)

== ENCOUNTER → 2017-03-06 | Outpatient (REF) | payer MEDICARE ==
[2017-03-07 10:32] LABS: IMMEDIATE SPIN CROSSMATCH 1 2
== END ==
LOC: M LAB REF 16:57
DX: C25.9 Malignant neoplasm of pancreas, unspecified (principal); L30.9 Dermatitis, unspecified
CPT/HCPCS: 83550

== ENCOUNTER 2017-03-07 09:49 | Outpatient (CLI) | payer MEDICARE ==
[2017-03-07] MEDS: diphenhydrAMINE 25 MG CAP PO (10:29)
[2017-03-07] MEDS: ACETAMINOPHEN TAB 650MG DOSE (2X325MG) PO (10:30)
[2017-03-07] MEDS: SODIUM CHLORIDE 0.9% INJ 10 ML SYR IV (14:59)
== END 2017-03-07 15:30 | disposition home or self-care (01) ==
LOC: M INFU 09:49
DX: D64.9 Anemia, unspecified (principal); Z87.891 Personal history of nicotine dependence; Z88.0 Allergy status to penicillin; Z79.899 Other long term (current) drug therapy
CPT/HCPCS: 36430

== ENCOUNTER → 2017-03-19 | Outpatient (REF) | payer MEDICARE ==
[2017-03-20 07:46] LABS: CA19-9 TUMOR MARKER,CARBOHYDRA 11.1 U/ML (<35.0)
== END ==
LOC: M LAB REF 18:03
DX: C25.1 Malignant neoplasm of body of pancreas (principal)
CPT/HCPCS: 86301

== ENCOUNTER → 2017-03-23 | Outpatient (CLI) | payer MEDICARE ==
[~2017-03-23] MED LIST changes: -ALBU83IN INH; -AMBI5TAB PO; -ELIQ5TAB PO; +GASTROGRAFIN SOLUTION 30ML (Q9963) As Ordered; +ISOVUE-370 76% 100ML VIAL (Q9967) As Ordered; -LEVA750T7 PO; -LOPR1TAB6 PO; -LOVE0.8I3 SC; -ONDA8TAB7; -OXYC-517 PO; -PROAAER10 INH; -PROC10TA; -PROP1TAB29 PO; -PROT1TAB2 PO; -SIMV40TA2 PO; -TIOT18INH INH; -ZOLP10TA2 PO
== END ==
LOC: M RAD 12:20
DX: C25.9 Malignant neoplasm of pancreas, unspecified (principal); N28.1 Cyst of kidney, acquired; R91.1 Solitary pulmonary nodule
CPT/HCPCS: Q9963

== ENCOUNTER 2017-04-05 09:19 | Day surgery (SDC) | payer MEDICARE ==
[2017-04-05] MEDS: NS 1,000 ML IV (09:45)
[2017-04-05] MEDS ORDERED: PROPOFOL 200 MG/20 ML VIAL As Ordered (10:37)
[2017-04-05] MEDS ORDERED: LIDOCAINE 2% INJ 100 MG/5 ML SDV (FOR ANES.) As Ordered ×2 (10:37)
== END 2017-04-05 11:05 | disposition home or self-care (01) ==
LOC: M OPP 09:19
DX: I85.00 Esophageal varices without bleeding (principal); K76.6 Portal hypertension; G47.33 Obstructive sleep apnea (adult) (pediatric); I10 Essential (primary) hypertension; J44.9 Chronic obstructive pulmonary disease, unspecified; I71.8 Aortic aneurysm of unspecified site, ruptured; E61.1 Iron deficiency; K59.00 Constipation, unspecified; R94.31 Abnormal electrocardiogram [ECG] [EKG]; K74.60 Unspecified cirrhosis of liver; Z79.899 Other long term (current) drug therapy; Z88.0 Allergy status to penicillin; C25.9 Malignant neoplasm of pancreas, unspecified; C78.7 Secondary malignant neoplasm of liver and intrahepatic bile duct; Z86.718 Personal history of other venous thrombosis and embolism; Z96.612 Presence of left artificial shoulder joint; Z96.89 Presence of other specified functional implants
CPT/HCPCS: 43235

== ENCOUNTER → 2017-04-09 | Outpatient (REF) | payer MEDICARE ==
[2017-04-10 09:51] LABS: CA19-9 TUMOR MARKER,CARBOHYDRA 15.7 U/ML (<35.0)
== END ==
LOC: M LAB REF 18:32
DX: C25.9 Malignant neoplasm of pancreas, unspecified (principal)
CPT/HCPCS: 86301

== ENCOUNTER → 2017-05-07 | Outpatient (REF) | payer MEDICARE ==
[2017-05-07 19:48] LABS: FERRITIN 556 NG/ML (26-388); IRON (FE) 75 UG/DL (65-175); PERCENT SATURATION 24.8 % (19.7-50.0); TOTAL IRON BINDING CAPACITY 302 UG/DL (250-450)
[2017-05-08 10:54] LABS: CA19-9 TUMOR MARKER,CARBOHYDRA 38.4 U/ML (<35.0)
== END ==
LOC: M LAB REF 18:48
DX: C25.9 Malignant neoplasm of pancreas, unspecified (principal)
CPT/HCPCS: 83550

== ENCOUNTER → 2017-05-11 | Outpatient (CLI) | payer MEDICARE | LOC: M RAD 12:19 | DX: C25.9 Malignant neoplasm of pancreas, unspecified (principal); R91.8 Other nonspecific abnormal finding of lung field | CPT/HCPCS: Q9963 ==

== ENCOUNTER → 2017-05-21 | Outpatient (REF) | payer MEDICARE ==
[2017-05-22 10:23] LABS: CA19-9 TUMOR MARKER,CARBOHYDRA 78.5 U/ML (<35.0)
== END ==
LOC: M LAB REF 17:39
DX: C25.9 Malignant neoplasm of pancreas, unspecified (principal)
CPT/HCPCS: 86301

== ENCOUNTER → 2017-05-29 | Outpatient (CLI) | payer MEDICARE | LOC: M RAD 17:37 | DX: C25.9 Malignant neoplasm of pancreas, unspecified (principal); R60.9 Edema, unspecified | CPT/HCPCS: 93971 ==

== ENCOUNTER → 2017-06-04 | Outpatient (REF) | payer MEDICARE ==
[2017-06-05 11:34] LABS: CA19-9 TUMOR MARKER,CARBOHYDRA 182.1 U/ML (<35.0)
== END ==
LOC: M LAB REF 17:43
DX: C25.9 Malignant neoplasm of pancreas, unspecified (principal)
CPT/HCPCS: 86301

== ENCOUNTER → 2017-07-02 | Outpatient (REF) | payer MEDICARE ==
[2017-07-03 09:26] LABS: CA19-9 TUMOR MARKER,CARBOHYDRA 420.3 U/ML (<35.0)
== END ==
LOC: M LAB REF 16:56
DX: C24.0 Malignant neoplasm of extrahepatic bile duct (principal); C78.30 Secondary malignant neoplasm of unspecified respiratory organ; C78.7 Secondary malignant neoplasm of liver and intrahepatic bile duct; D72.829 Elevated white blood cell count, unspecified
CPT/HCPCS: 86301

== ENCOUNTER → 2017-07-05 | Outpatient (CLI) | payer MEDICARE | LOC: M RAD 12:24 | DX: C25.9 Malignant neoplasm of pancreas, unspecified (principal) | CPT/HCPCS: Q9963 ==

== ENCOUNTER 2017-07-06 14:43 | Emergency (ER) | payer MEDICARE ==
[2017-07-06 15:52] LABS: BASO # 0.1 10^3/uL (0.0-0.2); BASO % 0.7 % (0.0-1.0); EOS # 0.2 10^3/uL (0.0-0.50); EOS % 1.7 % (0.0-3.0); HEMATOCRIT 31.9 % (42.0-52.0); HEMOGLOBIN 10.4 g/dl (13.5-17.5); IMMATURE GRANULOCYTE % 0.6 % (0-3.0); LYMPH # 0.9 10^3/uL (1.5-4.5); LYMPH % 10.3 % (24.0-44.0); MEAN CORPUSCULAR HEMOGLOBIN 31.3 pg (27.0-33.0); MEAN CORPUSCULAR HGB CONC 32.6 g/dl (32.0-36.5); MEAN CORPUSCULAR VOLUME 96.1 fl (80.0-96.0); MONO # 0.2 10^3/uL (0.0-0.8); MONO % 1.8 % (0.0-5.0); NEUTROPHILS # 7.6 10^3/uL (1.8-7.7); NEUTROPHILS % 84.9 % (36.0-66.0); PLATELET COUNT, AUTOMATED 231 10^3/uL (150-450); RED BLOOD COUNT 3.32 10^6/uL (4.30-6.10); RED CELL DISTRIBUTION WIDTH 17.2 % (11.5-14.5); WHITE BLOOD COUNT 8.9 10^3/uL (4.0-10.0)
[2017-07-06] MEDS: NS 1,000 ML IV (15:57)
[2017-07-06 16:01] LABS: LACTIC ACID SEPSIS PROTOCOL 1.1 MMOL/L (0.4-2.0)
[2017-07-06 16:03] LABS: ALBUMIN/GLOBULIN RATIO 0.97 (1.00-1.93); ALKALINE PHOSPHATASE 98 U/L (45-117); ALT/SGPT 25 U/L (12-78); ANION GAP 5 MEQ/L (8-16); AST/SGOT 23 U/L (7-37); BILIRUBIN,DIRECT < 0.1 MG/DL (0.0-0.2); BILIRUBIN,TOTAL 0.4 MG/DL (0.2-1.0); BLOOD UREA NITROGEN 17 MG/DL (7-18); CALCIUM LEVEL 8.1 MG/DL (8.8-10.2); CARBON DIOXIDE LEVEL 25 MEQ/L (21-32); CHLORIDE LEVEL 109 MEQ/L (98-107); CK-MB VALUE MASS < 1.0 NG/ML (<3.6); CPK CREATINE PHOSPHOKINASE 37 U/L (39-308); CREATININE FOR GFR 0.75 MG/DL (0.70-1.30); GLOMERULAR FILTRATION RATE > 60.0 (>42); GLUCOSE, FASTING 116 MG/DL (70-100); LIPASE 64 U/L (73-393); POTASSIUM SERUM 4.4 MEQ/L (3.5-5.1); SODIUM LEVEL 139 MEQ/L (136-145); TOTAL PROTEIN 6.1 GM/DL (6.4-8.2); TROPONIN I < 0.02 NG/ML (< 0.10)
[2017-07-06] MEDS: MORPHINE 4 MG/ML 1ML VIAL/SYRINGE (J2270) IV (16:04)
[2017-07-06 17:36] LABS: KETONE, URINE AUTO RFX NEGATIVE (NEGATIVE); LEUKOCYTE ESTERASE UR AUTO RFX NEGATIVE (NEGATIVE); NITRITE, URINE AUTO RFX NEGATIVE (NEGATIVE); RBC, URINE AUTO RFX 1 /HPF (0-3); SPECIFIC GRAVITY UR AUTO RFX 1.008 (1.002-1.035); SQUAM EPITHELIAL CELL UR AURFX 0 /HPF (0-6); WBC, URINE AUTO RFX 1 /HPF (0-3)
== END 2017-07-06 18:52 | disposition home or self-care (01) ==
LOC: M ED 14:43
DX: K80.50 Calculus of bile duct without cholangitis or cholecystitis without obstruction (principal); J44.9 Chronic obstructive pulmonary disease, unspecified; C25.9 Malignant neoplasm of pancreas, unspecified; C79.9 Secondary malignant neoplasm of unspecified site; Z79.899 Other long term (current) drug therapy; Z98.890 Other specified postprocedural states; Z87.891 Personal history of nicotine dependence; Z88.0 Allergy status to penicillin
CPT/HCPCS: J2270

== ENCOUNTER 2017-07-12 17:50 | Inpatient (IN) | payer MEDICARE ==
[2017-07-12 19:48] LABS: APPEARANCE, URINE HAZY (CLEAR); BACTERIA, URINE AUTO NEGATIVE (NEGATIVE); BILIRUBIN, URINE AUTO NEGATIVE (NEGATIVE); BLOOD, URINE BLOOD NEGATIVE (NEGATIVE); CALCIUM OXALATE CRYSTALS SMALL; COLOR, URINE AMBER (YELLOW); GLUCOSE, URINE (UA) AUTO NEGATIVE (NEGATIVE); KETONE, URINE AUTO NEGATIVE (NEGATIVE); LEUKOCYTE ESTERASE, URINE AUTO NEGATIVE (NEGATIVE); MUCUS, URINE SMALL (NEGATIVE); NITRITE, URINE AUTO NEGATIVE (NEGATIVE); PROTEIN, URINE AUTO NEGATIVE (NEGATIVE); RBC, URINE AUTO 3 /HPF (0-3); SPECIFIC GRAVITY URINE AUTO 1.026 (1.002-1.035); SQUAMOUS EPITHELIAL CELL UR AU 0 /HPF (0-6); WBC, URINE AUTO 2 /HPF (0-3)
[2017-07-12] MEDS: NS 500 ML IV ×3 (20:50→23:54)
[2017-07-12] MEDS: ACETAMINOPHEN 325 MG TAB PO (20:52)
[2017-07-12] MEDS: MORPHINE 10 MG/ML 1ML VIAL (J2270) IV ×2 (20:56→23:09)
[2017-07-12 21:01] LABS: BASO # 0.1 10^3/uL (0.0-0.2); BASO % 0.4 % (0.0-1.0); EOS # 0.1 10^3/uL (0.0-0.50); EOS % 0.5 % (0.0-3.0); HEMATOCRIT 30.6 % (42.0-52.0); HEMOGLOBIN 9.9 g/dl (13.5-17.5); IMMATURE GRANULOCYTE % 0.5 % (0-3.0); LYMPH # 1.1 10^3/uL (1.5-4.5); LYMPH % 8.9 % (24.0-44.0); MEAN CORPUSCULAR HEMOGLOBIN 30.4 pg (27.0-33.0); MEAN CORPUSCULAR HGB CONC 32.4 g/dl (32.0-36.5); MEAN CORPUSCULAR VOLUME 93.9 fl (80.0-96.0); MONO # 0.7 10^3/uL (0.0-0.8); MONO % 5.8 % (0.0-5.0); NEUTROPHILS # 10.5 10^3/uL (1.8-7.7); NEUTROPHILS % 83.9 % (36.0-66.0); PLATELET COUNT, AUTOMATED 173 10^3/uL (150-450); RED BLOOD COUNT 3.26 10^6/uL (4.30-6.10); WHITE BLOOD COUNT 12.5 10^3/uL (4.0-10.0)
[2017-07-12 21:20] LABS: ALBUMIN 3.2 GM/DL (3.2-5.2); ALKALINE PHOSPHATASE 152 U/L (45-117); ALT/SGPT 20 U/L (12-78); ANION GAP 10 MEQ/L (8-16); AST/SGOT 17 U/L (7-37); BILIRUBIN,DIRECT 0.5 MG/DL (0.0-0.2); BILIRUBIN,TOTAL 1.1 MG/DL (0.2-1.0); BLOOD UREA NITROGEN 25 MG/DL (7-18); CALCIUM LEVEL 8.5 MG/DL (8.8-10.2); CARBON DIOXIDE LEVEL 25 MEQ/L (21-32); CHLORIDE LEVEL 101 MEQ/L (98-107); CREATININE FOR GFR 1.08 MG/DL (0.70-1.30); GLOMERULAR FILTRATION RATE > 60.0 (>42); GLUCOSE, FASTING 94 MG/DL (70-100); LIPASE 46 U/L (73-393); POTASSIUM SERUM 4.5 MEQ/L (3.5-5.1); SODIUM LEVEL 136 MEQ/L (136-145); TOTAL PROTEIN 6.4 GM/DL (6.4-8.2)
[2017-07-12 21:20] LABS: LACTIC ACID SEPSIS PROTOCOL 1.2 MMOL/L (0.4-2.0)
[2017-07-12] MEDS: IBUPROFEN 800 MG TAB PO (21:28)
[2017-07-12] MEDS: LevoFLOXacin IV 750 MG in APPROPRIATE DILUENT 1 EA IV (21:30)
[2017-07-12] MEDS ORDERED: ISOVUE-370 76% 100ML VIAL (Q9967) As Ordered (21:45)
[2017-07-12 22:06] LABS: INFLUENZA A AMPLIFICATION NEGATIVE (NEGATIVE); INFLUENZA B AMPLIFICATION NEGATIVE (NEGATIVE)
[2017-07-13] MEDS ORDERED: PANTOPRAZOLE 40MG TAB (PROTONIX) PO (00:30)
[2017-07-13] MEDS ORDERED: POLYVINYL ALCOHOL OPHTH SOLN 15 ML(LIQUITEARS) OU (00:30)
[2017-07-13] MEDS ORDERED: ALBUTEROL 90 MCG/ACT 8GM HFA INHALER INH (00:30)
[2017-07-13] MEDS ORDERED: IBUPROFEN 400 MG TAB PO (00:45)
[2017-07-13] MEDS ORDERED: MEROPENEM INJ 1 GM in APPROPRIATE DILUENT 1 EA XX (01:00)
[2017-07-13] MEDS: VANCOMYCIN HCL 1,000 MG, VIAL MATE ADAPTER 1 EACH in D5W 250 ML IV (01:10)
[2017-07-13] MEDS: zolPIDEM TARTRATE 5 MG TAB PO ×2 (02:14→21:19)
[2017-07-13] MEDS: MEROPENEM INJ 1 GM in APPROPRIATE DILUENT 1 EA IV ×3 (02:14→17:35)
[2017-07-13] MEDS: NS 1,000 ML IV ×2 (02:15→17:36)
[2017-07-13] MEDS: ONDANSETRON 4MG/2ML VIAL (J2405) IV (02:26)
[2017-07-13 02:32] LABS: ERYTHROCYTE SEDIMENTATION RATE 67 mm/hr (0-20)
[2017-07-13] MEDS: TIOTROPIUM INHALER/CAPSULE (SPIRIVA) INH (08:09)
[2017-07-13] MEDS: PROPRANOLOL 20 MG TAB PO ×3 (09:00→21:00)
[2017-07-13] MEDS: MULTIVITAMINS/MINERALS THERAP 1 TAB PO ×2 (09:08→21:19)
[2017-07-13] MEDS: VANCOMYCIN HCL 750 MG, VIAL MATE ADAPTER 1 EACH in D5W 250 ML IV ×2 (09:08→21:19)
[2017-07-13] MEDS: ENOXAPARIN 40 MG/0.4 ML SYRINGE (J1650) SC (09:08)
[2017-07-13] MEDS: SODIUM CHLORIDE 0.9% INJ 10 ML SYR IV (09:09)
[2017-07-13] MEDS: ACETAMINOPHEN TAB 650MG DOSE (2X325MG) PO (15:36)
[2017-07-13] MEDS ORDERED: NS 1,000 ML IV (16:30)
[2017-07-13 17:22] LABS: HEMATOCRIT 28.2 % (42.0-52.0); HEMOGLOBIN 9.1 g/dl (13.5-17.5); MEAN CORPUSCULAR HEMOGLOBIN 30.6 pg (27.0-33.0); MEAN CORPUSCULAR HGB CONC 32.3 g/dl (32.0-36.5); MEAN CORPUSCULAR VOLUME 94.9 fl (80.0-96.0); PLATELET COUNT, AUTOMATED 118 10^3/uL (150-450); RED BLOOD COUNT 2.97 10^6/uL (4.30-6.10); RED CELL DISTRIBUTION WIDTH 17.2 % (11.5-14.5); WHITE BLOOD COUNT 11.1 10^3/uL (4.0-10.0)
[2017-07-13 17:39] LABS: ALBUMIN 2.6 GM/DL (3.2-5.2); ALBUMIN/GLOBULIN RATIO 0.87 (1.00-1.93); ALKALINE PHOSPHATASE 132 U/L (45-117); ALT/SGPT 19 U/L (12-78); ANION GAP 9 MEQ/L (8-16); AST/SGOT 19 U/L (7-37); BILIRUBIN,TOTAL 1.1 MG/DL (0.2-1.0); BLOOD UREA NITROGEN 23 MG/DL (7-18); CALCIUM LEVEL 8.1 MG/DL (8.8-10.2); CARBON DIOXIDE LEVEL 23 MEQ/L (21-32); CHLORIDE LEVEL 106 MEQ/L (98-107); CREATININE FOR GFR 1.05 MG/DL (0.70-1.30); GLOMERULAR FILTRATION RATE > 60.0 (>42); GLUCOSE, FASTING 147 MG/DL (70-100); POTASSIUM SERUM 4.1 MEQ/L (3.5-5.1); SODIUM LEVEL 138 MEQ/L (136-145); TOTAL PROTEIN 5.6 GM/DL (6.4-8.2)
[2017-07-13 17:40] LABS: LACTIC ACID SEPSIS PROTOCOL 1.5 MMOL/L (0.4-2.0)
[2017-07-14] MEDS: MEROPENEM INJ 1 GM in APPROPRIATE DILUENT 1 EA IV ×3 (01:53→18:36)
[2017-07-14] MEDS: ACETAMINOPHEN TAB 650MG DOSE (2X325MG) PO ×2 (05:58→17:30)
[2017-07-14 06:07] LABS: HEMATOCRIT 26.8 % (42.0-52.0); HEMOGLOBIN 8.7 g/dl (13.5-17.5); MEAN CORPUSCULAR HEMOGLOBIN 30.2 pg (27.0-33.0); MEAN CORPUSCULAR HGB CONC 32.5 g/dl (32.0-36.5); MEAN CORPUSCULAR VOLUME 93.1 fl (80.0-96.0); PLATELET COUNT, AUTOMATED 127 10^3/uL (150-450); RED BLOOD COUNT 2.88 10^6/uL (4.30-6.10); RED CELL DISTRIBUTION WIDTH 17.3 % (11.5-14.5)
[2017-07-14 06:34] LABS: ANION GAP 7 MEQ/L (8-16); BLOOD UREA NITROGEN 19 MG/DL (7-18); CALCIUM LEVEL 8.1 MG/DL (8.8-10.2); CARBON DIOXIDE LEVEL 24 MEQ/L (21-32); CHLORIDE LEVEL 108 MEQ/L (98-107); CREATININE FOR GFR 0.91 MG/DL (0.70-1.30); GLOMERULAR FILTRATION RATE > 60.0 (>42); GLUCOSE, FASTING 115 MG/DL (70-100); POTASSIUM SERUM 3.9 MEQ/L (3.5-5.1); SODIUM LEVEL 139 MEQ/L (136-145)
[2017-07-14 06:38] LABS: LACTIC ACID SEPSIS PROTOCOL 0.8 MMOL/L (0.4-2.0)
[2017-07-14] MEDS: IPRATROPIUM 0.5MG/ALBUTEROL 2.5MG INH SOL UD 3ML (DUONEB)(J7620) INH ×2 (07:11→19:52)
[2017-07-14] MEDS: TIOTROPIUM INHALER/CAPSULE (SPIRIVA) INH (07:11)
[2017-07-14] MEDS: SODIUM CHLORIDE 0.9% INJ 10 ML SYR IV (07:33)
[2017-07-14 07:43] LABS: ALBUMIN 2.4 GM/DL (3.2-5.2); ALBUMIN/GLOBULIN RATIO 0.69 (1.00-1.93); ALKALINE PHOSPHATASE 139 U/L (45-117); ALT/SGPT 16 U/L (12-78); AST/SGOT 17 U/L (7-37); BILIRUBIN,DIRECT 0.3 MG/DL (0.0-0.2); BILIRUBIN,TOTAL 0.6 MG/DL (0.2-1.0); TOTAL PROTEIN 5.9 GM/DL (6.4-8.2)
[2017-07-14] MEDS: ENOXAPARIN 40 MG/0.4 ML SYRINGE (J1650) SC (08:44)
[2017-07-14] MEDS: VANCOMYCIN HCL 750 MG, VIAL MATE ADAPTER 1 EACH in D5W 250 ML IV (08:44)
[2017-07-14] MEDS: MULTIVITAMINS/MINERALS THERAP 1 TAB PO ×2 (08:44→20:06)
[2017-07-14] MEDS: PROPRANOLOL 20 MG TAB PO ×2 (08:47→20:07)
[2017-07-14 09:02] LABS: VANCOMYCIN LEVEL TROUGH 7.3 UG/ML (10.0-20.0)
[2017-07-14] MEDS: PERCOCET 5MG/325MG TAB PO (10:12)
[2017-07-14] MEDS ORDERED: PERCOCET 5MG/325MG TAB PO (13:15)
[2017-07-14] MEDS: MORPHINE 4 MG/ML 1ML VIAL/SYRINGE (J2270) IV (13:26)
[2017-07-14] MEDS: VANCOMYCIN HCL 1,000 MG, VIAL MATE ADAPTER 1 EACH in D5W 250 ML IV (17:30)
[2017-07-14] MEDS: zolPIDEM TARTRATE 5 MG TAB PO (20:06)
[2017-07-15] MEDS: MEROPENEM INJ 1 GM in APPROPRIATE DILUENT 1 EA IV ×3 (01:51→19:06)
[2017-07-15] MEDS: VANCOMYCIN HCL 1,000 MG, VIAL MATE ADAPTER 1 EACH in D5W 250 ML IV ×2 (05:28→17:24)
[2017-07-15 05:42] LABS: HEMATOCRIT 26.1 % (42.0-52.0); HEMOGLOBIN 8.6 g/dl (13.5-17.5); MEAN CORPUSCULAR HEMOGLOBIN 30.6 pg (27.0-33.0); MEAN CORPUSCULAR VOLUME 92.9 fl (80.0-96.0); PLATELET COUNT, AUTOMATED 173 10^3/uL (150-450); RED BLOOD COUNT 2.81 10^6/uL (4.30-6.10); WHITE BLOOD COUNT 14.2 10^3/uL (4.0-10.0)
[2017-07-15 06:00] LABS: ALBUMIN 2.2 GM/DL (3.2-5.2); ALBUMIN/GLOBULIN RATIO 0.63 (1.00-1.93); ALKALINE PHOSPHATASE 141 U/L (45-117); ALT/SGPT 21 U/L (12-78); ANION GAP 7 MEQ/L (8-16); AST/SGOT 21 U/L (7-37); BILIRUBIN,DIRECT 0.3 MG/DL (0.0-0.2); BILIRUBIN,TOTAL 0.7 MG/DL (0.2-1.0); BLOOD UREA NITROGEN 20 MG/DL (7-18); CALCIUM LEVEL 8.1 MG/DL (8.8-10.2); CARBON DIOXIDE LEVEL 24 MEQ/L (21-32); CHLORIDE LEVEL 106 MEQ/L (98-107); CREATININE FOR GFR 0.91 MG/DL (0.70-1.30); GLOMERULAR FILTRATION RATE > 60.0 (>42); GLUCOSE, FASTING 120 MG/DL (70-100); POTASSIUM SERUM 3.6 MEQ/L (3.5-5.1); SODIUM LEVEL 137 MEQ/L (136-145); TOTAL PROTEIN 5.7 GM/DL (6.4-8.2)
[2017-07-15] MEDS: IPRATROPIUM 0.5MG/ALBUTEROL 2.5MG INH SOL UD 3ML (DUONEB)(J7620) INH (07:05)
[2017-07-15] MEDS: TIOTROPIUM INHALER/CAPSULE (SPIRIVA) INH (07:05)
[2017-07-15] MEDS: SODIUM CHLORIDE 0.9% INJ 10 ML SYR IV ×2 (09:34→19:53)
[2017-07-15] MEDS: MULTIVITAMINS/MINERALS THERAP 1 TAB PO ×2 (09:34→20:31)
[2017-07-15] MEDS: ENOXAPARIN 40 MG/0.4 ML SYRINGE (J1650) SC (09:34)
[2017-07-15] MEDS: PROPRANOLOL 20 MG TAB PO ×2 (09:37→20:33)
[2017-07-15] MEDS: ACETAMINOPHEN TAB 650MG DOSE (2X325MG) PO (11:02)
[2017-07-15] MEDS: ONDANSETRON 4MG/2ML VIAL (J2405) IV (17:36)
[2017-07-15] MEDS: MORPHINE 4 MG/ML 1ML VIAL/SYRINGE (J2270) IV (17:57)
[2017-07-15] MEDS: zolPIDEM TARTRATE 5 MG TAB PO (20:30)
[2017-07-16] MEDS: ONDANSETRON 4MG/2ML VIAL (J2405) IV ×2 (00:06→20:16)
[2017-07-16] MEDS: SODIUM CHLORIDE 0.9% INJ 10 ML SYR IV ×3 (00:06→14:24)
[2017-07-16] MEDS: MEROPENEM INJ 1 GM in APPROPRIATE DILUENT 1 EA IV ×3 (02:06→19:38)
[2017-07-16] MEDS: VANCOMYCIN HCL 1,000 MG, VIAL MATE ADAPTER 1 EACH in D5W 250 ML IV ×2 (05:01→17:23)
[2017-07-16 05:18] LABS: HEMATOCRIT 26.9 % (42.0-52.0); HEMOGLOBIN 8.8 g/dl (13.5-17.5); MEAN CORPUSCULAR HGB CONC 32.7 g/dl (32.0-36.5); MEAN CORPUSCULAR VOLUME 91.8 fl (80.0-96.0); PLATELET COUNT, AUTOMATED 246 10^3/uL (150-450); RED BLOOD COUNT 2.93 10^6/uL (4.30-6.10); RED CELL DISTRIBUTION WIDTH 18.1 % (11.5-14.5)
[2017-07-16 05:49] LABS: ALBUMIN 2.1 GM/DL (3.2-5.2); ALKALINE PHOSPHATASE 149 U/L (45-117); ALT/SGPT 22 U/L (12-78); ANION GAP 6 MEQ/L (8-16); AST/SGOT 23 U/L (7-37); BILIRUBIN,DIRECT 0.4 MG/DL (0.0-0.2); BILIRUBIN,TOTAL 0.7 MG/DL (0.2-1.0); BLOOD UREA NITROGEN 17 MG/DL (7-18); CALCIUM LEVEL 7.7 MG/DL (8.8-10.2); CARBON DIOXIDE LEVEL 26 MEQ/L (21-32); CHLORIDE LEVEL 104 MEQ/L (98-107); GLOMERULAR FILTRATION RATE > 60.0 (>42); GLUCOSE, FASTING 135 MG/DL (70-100); POTASSIUM SERUM 3.9 MEQ/L (3.5-5.1); SODIUM LEVEL 136 MEQ/L (136-145); TOTAL PROTEIN 5.1 GM/DL (6.4-8.2); VANCOMYCIN LEVEL TROUGH 9.1 UG/ML (10.0-20.0)
[2017-07-16] MEDS: MULTIVITAMINS/MINERALS THERAP 1 TAB PO ×2 (08:07→20:16)
[2017-07-16] MEDS: PROPRANOLOL 20 MG TAB PO ×2 (08:07→20:16)
[2017-07-16] MEDS: ENOXAPARIN 40 MG/0.4 ML SYRINGE (J1650) SC (08:08)
[2017-07-16] MEDS: VANCOMYCIN HCL 500 MG in D5W MINI-BAG PLUS 100 ML IV (08:08)
[2017-07-16] MEDS: IPRATROPIUM 0.5MG/ALBUTEROL 2.5MG INH SOL UD 3ML (DUONEB)(J7620) INH (08:47)
[2017-07-16] MEDS: TIOTROPIUM INHALER/CAPSULE (SPIRIVA) INH (08:47)
[2017-07-16] MEDS: NS 500 ML IV (12:50)
[2017-07-16] MEDS: ACETAMINOPHEN TAB 650MG DOSE (2X325MG) PO (15:47)
[2017-07-16] MEDS: zolPIDEM TARTRATE 5 MG TAB PO (20:16)
[2017-07-17] MEDS ORDERED: METOCLOPRAMIDE INJ 10MG/2ML VIAL (J2765) IV (00:45)
[2017-07-17] MEDS: MEROPENEM INJ 1 GM in APPROPRIATE DILUENT 1 EA IV ×3 (02:01→19:59)
[2017-07-17] MEDS: VANCOMYCIN HCL 1,000 MG, VIAL MATE ADAPTER 1 EACH in D5W 250 ML IV ×2 (05:07→17:57)
[2017-07-17 05:30] LABS: HEMOGLOBIN 9.1 g/dl (13.5-17.5); MEAN CORPUSCULAR HEMOGLOBIN 29.8 pg (27.0-33.0); MEAN CORPUSCULAR HGB CONC 32.5 g/dl (32.0-36.5); MEAN CORPUSCULAR VOLUME 91.8 fl (80.0-96.0); RED BLOOD COUNT 3.05 10^6/uL (4.30-6.10); RED CELL DISTRIBUTION WIDTH 18.1 % (11.5-14.5); WHITE BLOOD COUNT 19.8 10^3/uL (4.0-10.0)
[2017-07-17 05:34] LABS: PLATELET COUNT, AUTOMATED 375 10^3/uL (150-450)
[2017-07-17 06:10] LABS: ALBUMIN/GLOBULIN RATIO 0.69 (1.00-1.93); ALKALINE PHOSPHATASE 149 U/L (45-117); ALT/SGPT 32 U/L (12-78); ANION GAP 6 MEQ/L (8-16); AST/SGOT 39 U/L (7-37); BILIRUBIN,DIRECT 0.2 MG/DL (0.0-0.2); BILIRUBIN,TOTAL 0.5 MG/DL (0.2-1.0); BLOOD UREA NITROGEN 18 MG/DL (7-18); CALCIUM LEVEL 7.4 MG/DL (8.8-10.2); CARBON DIOXIDE LEVEL 25 MEQ/L (21-32); CHLORIDE LEVEL 106 MEQ/L (98-107); CREATININE FOR GFR 0.75 MG/DL (0.70-1.30); GLOMERULAR FILTRATION RATE > 60.0 (>42); GLUCOSE, FASTING 118 MG/DL (70-100); POTASSIUM SERUM 4.1 MEQ/L (3.5-5.1); SODIUM LEVEL 137 MEQ/L (136-145); TOTAL PROTEIN 4.9 GM/DL (6.4-8.2)
[2017-07-17] MEDS: SODIUM CHLORIDE 0.9% INJ 10 ML SYR IV ×2 (06:18→13:26)
[2017-07-17] MEDS: TIOTROPIUM INHALER/CAPSULE (SPIRIVA) INH (08:00)
[2017-07-17] MEDS ORDERED: LIDOCAINE 1% MDV 20ML VIAL As Ordered (09:38)
[2017-07-17] MEDS: MULTIVITAMINS/MINERALS THERAP 1 TAB PO ×2 (12:04→21:12)
[2017-07-17] MEDS: PROPRANOLOL 20 MG TAB PO ×2 (12:07→21:11)
[2017-07-17] MEDS: PERCOCET 5MG/325MG TAB PO (14:51)
[2017-07-17 16:57] LABS: VANCOMYCIN LEVEL TROUGH 13.3 UG/ML (10.0-20.0)
[2017-07-17] MEDS: zolPIDEM TARTRATE 5 MG TAB PO (21:12)
[2017-07-17] MEDS: MORPHINE 4 MG/ML 1ML VIAL/SYRINGE (J2270) IV (21:13)
[2017-07-18] MEDS: MEROPENEM INJ 1 GM in APPROPRIATE DILUENT 1 EA IV ×3 (02:54→18:00)
[2017-07-18] MEDS: PERCOCET 5MG/325MG TAB PO (02:58)
[2017-07-18] MEDS: VANCOMYCIN HCL 1,000 MG, VIAL MATE ADAPTER 1 EACH in D5W 250 ML IV ×2 (04:38→17:00)
[2017-07-18] MEDS: SODIUM CHLORIDE 0.9% INJ 10 ML SYR IV ×2 (04:39→09:33)
[2017-07-18 04:54] LABS: HEMATOCRIT 27.3 % (42.0-52.0); HEMOGLOBIN 8.6 g/dl (13.5-17.5); MEAN CORPUSCULAR HEMOGLOBIN 29.5 pg (27.0-33.0); MEAN CORPUSCULAR HGB CONC 31.5 g/dl (32.0-36.5); MEAN CORPUSCULAR VOLUME 93.5 fl (80.0-96.0); PLATELET COUNT, AUTOMATED 391 10^3/uL (150-450); RED BLOOD COUNT 2.92 10^6/uL (4.30-6.10); RED CELL DISTRIBUTION WIDTH 18.2 % (11.5-14.5); WHITE BLOOD COUNT 18.5 10^3/uL (4.0-10.0)
[2017-07-18 05:39] LABS: ALBUMIN/GLOBULIN RATIO 0.67 (1.00-1.93); ALKALINE PHOSPHATASE 136 U/L (45-117); ALT/SGPT 31 U/L (12-78); ANION GAP 7 MEQ/L (8-16); AST/SGOT 31 U/L (7-37); BILIRUBIN,DIRECT 0.2 MG/DL (0.0-0.2); BILIRUBIN,TOTAL 0.5 MG/DL (0.2-1.0); BLOOD UREA NITROGEN 15 MG/DL (7-18); CALCIUM LEVEL 7.5 MG/DL (8.8-10.2); CARBON DIOXIDE LEVEL 26 MEQ/L (21-32); CHLORIDE LEVEL 106 MEQ/L (98-107); GLOMERULAR FILTRATION RATE > 60.0 (>42); GLUCOSE, FASTING 98 MG/DL (70-100); SODIUM LEVEL 139 MEQ/L (136-145)
[2017-07-18] MEDS: MULTIVITAMINS/MINERALS THERAP 1 TAB PO ×2 (07:41→21:00)
[2017-07-18] MEDS: TIOTROPIUM INHALER/CAPSULE (SPIRIVA) INH (08:02)
[2017-07-18] MEDS: PROPRANOLOL 20 MG TAB PO ×2 (09:34→21:00)
[2017-07-18] MEDS: MORPHINE 4 MG/ML 1ML VIAL/SYRINGE (J2270) IV (13:55)
[2017-07-18] MEDS: BUPIVACAINE HCL 0.25% 30 ML VIAL As Ordered ×2 (15:20→19:23)
[2017-07-18] MEDS: LIDOCAINE 1% SDV INJ 30 ML VIAL As Ordered (15:20)
[2017-07-18] MEDS ORDERED: DESFLURANE 240 ML INHALANT As Ordered (15:47)
[2017-07-18] MEDS ORDERED: LIDOCAINE 2% INJ 100 MG/5 ML SDV (FOR ANES.) As Ordered (15:47)
[2017-07-18] MEDS ORDERED: SEVOFLURANE INHAL SOLN 250 ML BTL As Ordered (15:47)
[2017-07-18] MEDS ORDERED: PROPOFOL 200 MG/20 ML VIAL As Ordered (15:47)
[2017-07-18] MEDS ORDERED: ROCURONIUM BROMIDE 50 MG/5 ML VIAL As Ordered ×2 (15:48→16:54)
[2017-07-18] MEDS ORDERED: fentaNYL 250 MCG/5 ML INJECTION (J3010) As Ordered (15:51)
[2017-07-18] MEDS ORDERED: MIDAZOLAM INJ 2 MG/2 ML VIAL (J2250) As Ordered (15:52)
[2017-07-18] MEDS ORDERED: PHENYLephrine HCL 500 MCG/5 ML (100MCG/ML) SYRINGE (J2370) As Ordered (16:25)
[2017-07-18] MEDS ORDERED: VANCOMYCIN 1000 MG/20 ML VIAL (J3370) As Ordered (16:32)
[2017-07-18] MEDS ORDERED: dexameTHASONE 4 MG/ML 1ML VIAL (J1100) As Ordered (16:51)
[2017-07-18] MEDS ORDERED: NEOSTIGMINE 10 MG/10 ML VIAL (J2710) As Ordered (17:08)
[2017-07-18] MEDS ORDERED: GLYCOPYRROLATE INJ 0.2 MG/ML 2 ML VIAL As Ordered (17:08)
[2017-07-18] MEDS ORDERED: ONDANSETRON 4MG/2ML VIAL (J2405) As Ordered (17:13)
[2017-07-18] MEDS ORDERED: HYDROmorphone HCL 2 MG/ML 1ML VIAL (J1170) As Ordered (17:21)
[2017-07-18] MEDS ORDERED: ePHEDrine SULFATE 25 MG/5 ML(5MG/ML) SYRINGE As Ordered (17:34)
[2017-07-18] MEDS ORDERED: PHENYLEPHRINE INJ 10MG/ML VIAL (J2370) As Ordered (17:46)
[2017-07-18 19:19] LABS: IMMEDIATE SPIN CROSSMATCH 1 2
[2017-07-18] MEDS: BUPIVACAINE LIPOSOME/PF 1.3% 20 ML VIAL (13.3MG/ML)(EXPAREL) As Ordered (19:23)
[2017-07-18] MEDS: LR 1,000 ML IV ×2 (20:30→22:00)
[2017-07-18] MEDS ORDERED: MORPHINE 1MG/ML IN 0.9% NACL 100ML IV BAG As Ordered (20:46)
[2017-07-18] MEDS ORDERED: fentaNYL 100 MCG/2 ML INJECTION (J3010) As Ordered (20:47)
[2017-07-18] MEDS: fentaNYL 100 MCG/2 ML INJECTION (J3010) IV ×4 (20:55→21:15)
[2017-07-18] MEDS ORDERED: MORPHINE 1MG/ML IN 0.9% NACL 100ML IV BAG IV (21:00)
[2017-07-18] MEDS: zolPIDEM TARTRATE 5 MG TAB PO (21:00)
[2017-07-18] MEDS ORDERED: EPIDURAL/PCA KEYS XX (21:00)
[2017-07-18] MEDS: PANTOPRAZOLE 40MG INJ (PROTONIX) (C9113) IV (21:00)
[2017-07-18] MEDS ORDERED: ONDANSETRON 4MG/2ML VIAL (J2405) IV ×2 (21:00)
[2017-07-18] MEDS ORDERED: NALOXONE INJ 0.4 MG/1 ML VIAL (J2310) IV (21:00)
[2017-07-18] MEDS ORDERED: NALBUPHINE HCL 10 MG/ML AMP (J2300) IV (21:00)
[2017-07-18] MEDS ORDERED: diphenhydrAMINE INJ 50MG/ML VIAL (J1200) IV (21:00)
[2017-07-18 22:30] LABS: HEMATOCRIT 32.5 % (42.0-52.0); HEMOGLOBIN 10.5 g/dl (13.5-17.5); MEAN CORPUSCULAR HGB CONC 32.3 g/dl (32.0-36.5); MEAN CORPUSCULAR VOLUME 92.9 fl (80.0-96.0); PLATELET COUNT, AUTOMATED 608 10^3/uL (150-450); RED CELL DISTRIBUTION WIDTH 18.5 % (11.5-14.5)
[2017-07-18 22:45] LABS: POS COUNT POS FLAG
[2017-07-19] MEDS: MEROPENEM INJ 1 GM in APPROPRIATE DILUENT 1 EA IV ×3 (02:00→18:22)
[2017-07-19] MEDS: LR 1,000 ML IV ×4 (03:10→23:05)
[2017-07-19 05:33] LABS: HEMOGLOBIN 9.5 g/dl (13.5-17.5); MEAN CORPUSCULAR HEMOGLOBIN 30.4 pg (27.0-33.0); MEAN CORPUSCULAR HGB CONC 32.8 g/dl (32.0-36.5); MEAN CORPUSCULAR VOLUME 92.7 fl (80.0-96.0); RED BLOOD COUNT 3.13 10^6/uL (4.30-6.10); RED CELL DISTRIBUTION WIDTH 18.6 % (11.5-14.5); WHITE BLOOD COUNT 27.2 10^3/uL (4.0-10.0)
[2017-07-19 05:41] LABS: PLATELET COUNT, AUTOMATED 507 10^3/uL (150-450)
[2017-07-19] MEDS: CONRAY-60 60% 50ML VIAL (Q9961) As Ordered (05:45)
[2017-07-19 05:53] LABS: ALBUMIN 1.7 GM/DL (3.2-5.2); ALBUMIN/GLOBULIN RATIO 0.61 (1.00-1.93); ALKALINE PHOSPHATASE 110 U/L (45-117); ALT/SGPT 30 U/L (12-78); ANION GAP 6 MEQ/L (8-16); AST/SGOT 35 U/L (7-37); BILIRUBIN,DIRECT 0.3 MG/DL (0.0-0.2); BILIRUBIN,TOTAL 0.6 MG/DL (0.2-1.0); BLOOD UREA NITROGEN 19 MG/DL (7-18); CALCIUM LEVEL 7.4 MG/DL (8.8-10.2); CARBON DIOXIDE LEVEL 26 MEQ/L (21-32); CHLORIDE LEVEL 108 MEQ/L (98-107); GLOMERULAR FILTRATION RATE > 60.0 (>42); GLUCOSE, FASTING 126 MG/DL (70-100); SODIUM LEVEL 140 MEQ/L (136-145); TOTAL PROTEIN 4.5 GM/DL (6.4-8.2)
[2017-07-19] MEDS: TIOTROPIUM INHALER/CAPSULE (SPIRIVA) INH (07:29)
[2017-07-19] MEDS: IPRATROPIUM 0.5MG/ALBUTEROL 2.5MG INH SOL UD 3ML (DUONEB)(J7620) INH (07:29)
[2017-07-19] MEDS: PROPRANOLOL 20 MG TAB PO ×2 (09:12→21:29)
[2017-07-19] MEDS: HEPARIN SOD (PORCINE) 5000 UNITS/ML VIAL SQ ×3 (09:12→21:28)
[2017-07-19] MEDS: MULTIVITAMINS/MINERALS THERAP 1 TAB PO ×2 (09:12→21:28)
[2017-07-19] MEDS: SODIUM CHLORIDE 0.9% INJ 10 ML SYR IV (09:15)
[2017-07-19] MEDS: zolPIDEM TARTRATE 5 MG TAB PO (21:28)
[2017-07-19] MEDS: PANTOPRAZOLE 40MG INJ (PROTONIX) (C9113) IV (21:29)
[2017-07-20] MEDS: MEROPENEM INJ 1 GM in APPROPRIATE DILUENT 1 EA IV ×3 (02:05→18:19)
[2017-07-20] MEDS: LR 1,000 ML IV (06:03)
[2017-07-20] MEDS: SODIUM CHLORIDE 0.9% INJ 10 ML SYR IV (06:04)
[2017-07-20 06:20] LABS: HEMATOCRIT 26.7 % (42.0-52.0); HEMOGLOBIN 8.6 g/dl (13.5-17.5); MEAN CORPUSCULAR HEMOGLOBIN 29.9 pg (27.0-33.0); MEAN CORPUSCULAR HGB CONC 32.2 g/dl (32.0-36.5); MEAN CORPUSCULAR VOLUME 92.7 fl (80.0-96.0); PLATELET COUNT, AUTOMATED 547 10^3/uL (150-450); RED BLOOD COUNT 2.88 10^6/uL (4.30-6.10); RED CELL DISTRIBUTION WIDTH 18.3 % (11.5-14.5)
[2017-07-20 06:45] LABS: ALBUMIN 1.7 GM/DL (3.2-5.2); ALBUMIN/GLOBULIN RATIO 0.61 (1.00-1.93); ALKALINE PHOSPHATASE 91 U/L (45-117); ALT/SGPT 22 U/L (12-78); ANION GAP 5 MEQ/L (8-16); AST/SGOT 24 U/L (7-37); BILIRUBIN,TOTAL 0.4 MG/DL (0.2-1.0); BLOOD UREA NITROGEN 20 MG/DL (7-18); CALCIUM LEVEL 7.5 MG/DL (8.8-10.2); CARBON DIOXIDE LEVEL 28 MEQ/L (21-32); CHLORIDE LEVEL 108 MEQ/L (98-107); CREATININE FOR GFR 0.65 MG/DL (0.70-1.30); GLOMERULAR FILTRATION RATE > 60.0 (>42); GLUCOSE, FASTING 87 MG/DL (70-100); POTASSIUM SERUM 4.6 MEQ/L (3.5-5.1); SODIUM LEVEL 141 MEQ/L (136-145); TOTAL PROTEIN 4.5 GM/DL (6.4-8.2)
[2017-07-20] MEDS: IPRATROPIUM 0.5MG/ALBUTEROL 2.5MG INH SOL UD 3ML (DUONEB)(J7620) INH (07:58)
[2017-07-20] MEDS: TIOTROPIUM INHALER/CAPSULE (SPIRIVA) INH (07:58)
[2017-07-20] MEDS: MULTIVITAMINS/MINERALS THERAP 1 TAB PO ×2 (09:36→21:12)
[2017-07-20] MEDS: PROPRANOLOL 20 MG TAB PO ×2 (09:36→21:12)
[2017-07-20] MEDS: ENOXAPARIN 40 MG/0.4 ML SYRINGE (J1650) SC (09:36)
[2017-07-20] MEDS: AMIODARONE HCL 150 MG in APPROPRIATE DILUENT 1 EA IV (09:54)
[2017-07-20] MEDS: NS 1,000 ML IV (10:04)
[2017-07-20 10:22] LABS: MAGNESIUM LEVEL 2.3 MG/DL (1.8-2.4)
[2017-07-20] MEDS: PANTOPRAZOLE 40MG INJ (PROTONIX) (C9113) IV (21:12)
[2017-07-20] MEDS: zolPIDEM TARTRATE 5 MG TAB PO (21:12)
[2017-07-21] MEDS: MEROPENEM INJ 1 GM in APPROPRIATE DILUENT 1 EA IV ×3 (01:54→17:12)
[2017-07-21 06:30] LABS: HEMATOCRIT 29.1 % (42.0-52.0); HEMOGLOBIN 9.5 g/dl (13.5-17.5); MEAN CORPUSCULAR HEMOGLOBIN 29.7 pg (27.0-33.0); MEAN CORPUSCULAR HGB CONC 32.6 g/dl (32.0-36.5); MEAN CORPUSCULAR VOLUME 90.9 fl (80.0-96.0); PLATELET COUNT, AUTOMATED 601 10^3/uL (150-450); RED CELL DISTRIBUTION WIDTH 17.8 % (11.5-14.5); WHITE BLOOD COUNT 13.7 10^3/uL (4.0-10.0)
[2017-07-21 07:07] LABS: ALBUMIN 1.7 GM/DL (3.2-5.2); ALBUMIN/GLOBULIN RATIO 0.59 (1.00-1.93); ALKALINE PHOSPHATASE 92 U/L (45-117); ALT/SGPT 21 U/L (12-78); ANION GAP 6 MEQ/L (8-16); AST/SGOT 20 U/L (7-37); BILIRUBIN,TOTAL 0.4 MG/DL (0.2-1.0); BLOOD UREA NITROGEN 15 MG/DL (7-18); CALCIUM LEVEL 7.6 MG/DL (8.8-10.2); CARBON DIOXIDE LEVEL 29 MEQ/L (21-32); CHLORIDE LEVEL 106 MEQ/L (98-107); CREATININE FOR GFR 0.69 MG/DL (0.70-1.30); GLOMERULAR FILTRATION RATE > 60.0 (>42); GLUCOSE, FASTING 94 MG/DL (70-100); POTASSIUM SERUM 4.3 MEQ/L (3.5-5.1); SODIUM LEVEL 141 MEQ/L (136-145); TOTAL PROTEIN 4.6 GM/DL (6.4-8.2)
[2017-07-21] MEDS: TIOTROPIUM INHALER/CAPSULE (SPIRIVA) INH (08:05)
[2017-07-21] MEDS: ENOXAPARIN 40 MG/0.4 ML SYRINGE (J1650) SC (09:38)
[2017-07-21] MEDS: PROPRANOLOL 20 MG TAB PO ×2 (09:38→21:21)
[2017-07-21] MEDS: MULTIVITAMINS/MINERALS THERAP 1 TAB PO ×2 (09:38→21:21)
[2017-07-21] MEDS: SODIUM CHLORIDE 0.9% INJ 10 ML SYR IV (09:39)
[2017-07-21] MEDS ORDERED: ACETAMINOPHEN TAB 650MG DOSE (2X325MG) PO (12:00)
[2017-07-21] MEDS ORDERED: MORPHINE 4 MG/ML 1ML VIAL/SYRINGE (J2270) IV (12:00)
[2017-07-21] MEDS: NORCO, ANEXSIA 5/325MG TABLET (HYDROcodone/ACETAMINOPHEN) PO ×3 (13:17→21:23)
[2017-07-21] MEDS: zolPIDEM TARTRATE 5 MG TAB PO (21:21)
[2017-07-22] MEDS: MEROPENEM INJ 1 GM in APPROPRIATE DILUENT 1 EA IV ×3 (02:18→18:42)
[2017-07-22 05:36] LABS: HEMATOCRIT 28.6 % (42.0-52.0); HEMOGLOBIN 9.3 g/dl (13.5-17.5); MEAN CORPUSCULAR HEMOGLOBIN 29.5 pg (27.0-33.0); MEAN CORPUSCULAR HGB CONC 32.5 g/dl (32.0-36.5); MEAN CORPUSCULAR VOLUME 90.8 fl (80.0-96.0); PLATELET COUNT, AUTOMATED 635 10^3/uL (150-450); RED BLOOD COUNT 3.15 10^6/uL (4.30-6.10); WHITE BLOOD COUNT 14.8 10^3/uL (4.0-10.0)
[2017-07-22 06:14] LABS: ALBUMIN 1.7 GM/DL (3.2-5.2); ALBUMIN/GLOBULIN RATIO 0.57 (1.00-1.93); ALKALINE PHOSPHATASE 85 U/L (45-117); ALT/SGPT 18 U/L (12-78); ANION GAP 4 MEQ/L (8-16); AST/SGOT 21 U/L (7-37); BILIRUBIN,TOTAL 0.3 MG/DL (0.2-1.0); BLOOD UREA NITROGEN 14 MG/DL (7-18); C REACTIVE PROTEIN QUANTITATIV 3.68 MG/DL (0.00-0.30); CALCIUM LEVEL 7.7 MG/DL (8.8-10.2); CARBON DIOXIDE LEVEL 30 MEQ/L (21-32); CHLORIDE LEVEL 108 MEQ/L (98-107); CREATININE FOR GFR 0.68 MG/DL (0.70-1.30); GLOMERULAR FILTRATION RATE > 60.0 (>42); GLUCOSE, FASTING 112 MG/DL (70-100); SODIUM LEVEL 142 MEQ/L (136-145); TOTAL PROTEIN 4.7 GM/DL (6.4-8.2)
[2017-07-22] MEDS: TIOTROPIUM INHALER/CAPSULE (SPIRIVA) INH (07:38)
[2017-07-22] MEDS: MULTIVITAMINS/MINERALS THERAP 1 TAB PO ×2 (09:15→20:42)
[2017-07-22] MEDS: NORCO, ANEXSIA 5/325MG TABLET (HYDROcodone/ACETAMINOPHEN) PO ×3 (09:15→20:43)
[2017-07-22] MEDS: PROPRANOLOL 20 MG TAB PO ×2 (09:15→20:42)
[2017-07-22] MEDS: ENOXAPARIN 40 MG/0.4 ML SYRINGE (J1650) SC (09:16)
[2017-07-22] MEDS: SODIUM CHLORIDE 0.9% INJ 10 ML SYR IV ×2 (09:16→18:42)
[2017-07-22] MEDS: zolPIDEM TARTRATE 5 MG TAB PO (20:42)
[2017-07-23] MEDS: MEROPENEM INJ 1 GM in APPROPRIATE DILUENT 1 EA IV ×2 (02:01→10:30)
[2017-07-23 05:08] LABS: BASO # 0.1 10^3/uL (0.0-0.2); BASO % 0.5 % (0.0-1.0); EOS # 0.4 10^3/uL (0.0-0.50); EOS % 3.1 % (0.0-3.0); HEMATOCRIT 27.8 % (42.0-52.0); IMMATURE GRANULOCYTE % 4.3 % (0-3.0); LYMPH # 2.1 10^3/uL (1.5-4.5); LYMPH % 14.7 % (24.0-44.0); MEAN CORPUSCULAR HGB CONC 32.4 g/dl (32.0-36.5); MEAN CORPUSCULAR VOLUME 92.7 fl (80.0-96.0); MONO # 1.4 10^3/uL (0.0-0.8); MONO % 9.7 % (0.0-5.0); NEUTROPHILS # 9.5 10^3/uL (1.8-7.7); NEUTROPHILS % 67.7 % (36.0-66.0); RED CELL DISTRIBUTION WIDTH 18.5 % (11.5-14.5); WHITE BLOOD COUNT 14.1 10^3/uL (4.0-10.0)
[2017-07-23 05:11] LABS: PLATELET COUNT, AUTOMATED 534 10^3/uL (150-450)
[2017-07-23 05:28] LABS: ALBUMIN 1.7 GM/DL (3.2-5.2); ALBUMIN/GLOBULIN RATIO 0.57 (1.00-1.93); ALKALINE PHOSPHATASE 86 U/L (45-117); ALT/SGPT 15 U/L (12-78); ANION GAP 6 MEQ/L (8-16); AST/SGOT 17 U/L (7-37); BILIRUBIN,TOTAL 0.3 MG/DL (0.2-1.0); BLOOD UREA NITROGEN 13 MG/DL (7-18); C REACTIVE PROTEIN QUANTITATIV 1.87 MG/DL (0.00-0.30); CALCIUM LEVEL 7.7 MG/DL (8.8-10.2); CARBON DIOXIDE LEVEL 29 MEQ/L (21-32); CHLORIDE LEVEL 108 MEQ/L (98-107); CREATININE FOR GFR 0.76 MG/DL (0.70-1.30); GLOMERULAR FILTRATION RATE > 60.0 (>42); GLUCOSE, FASTING 98 MG/DL (70-100); MAGNESIUM LEVEL 2.1 MG/DL (1.8-2.4); POTASSIUM SERUM 4.3 MEQ/L (3.5-5.1); SODIUM LEVEL 143 MEQ/L (136-145); TOTAL PROTEIN 4.7 GM/DL (6.4-8.2)
[2017-07-23] MEDS: TIOTROPIUM INHALER/CAPSULE (SPIRIVA) INH (07:21)
[2017-07-23] MEDS: MULTIVITAMINS/MINERALS THERAP 1 TAB PO ×2 (08:10→21:08)
[2017-07-23] MEDS: NORCO, ANEXSIA 5/325MG TABLET (HYDROcodone/ACETAMINOPHEN) PO ×2 (08:11→21:10)
[2017-07-23] MEDS: PROPRANOLOL 20 MG TAB PO ×2 (08:11→21:08)
[2017-07-23] MEDS: ENOXAPARIN 40 MG/0.4 ML SYRINGE (J1650) SC (08:11)
[2017-07-23] MEDS: SODIUM CHLORIDE 0.9% INJ 10 ML SYR IV ×2 (08:12→11:47)
[2017-07-23] MEDS: metroNIDAZOLE (FLAGYL) 500 MG TAB PO ×2 (15:31→21:08)
[2017-07-23] MEDS: CIPROFLOXACIN 500 MG TAB PO (18:45)
[2017-07-23] MEDS: zolPIDEM TARTRATE 5 MG TAB PO (21:08)
[2017-07-24] MEDS: metroNIDAZOLE (FLAGYL) 500 MG TAB PO ×3 (05:07→21:07)
[2017-07-24] MEDS: CIPROFLOXACIN 500 MG TAB PO ×2 (05:07→17:36)
[2017-07-24] MEDS: SODIUM CHLORIDE 0.9% INJ 10 ML SYR IV (05:08)
[2017-07-24 05:21] LABS: HEMATOCRIT 29.7 % (42.0-52.0); HEMOGLOBIN 9.4 g/dl (13.5-17.5); MEAN CORPUSCULAR HEMOGLOBIN 29.5 pg (27.0-33.0); MEAN CORPUSCULAR HGB CONC 31.6 g/dl (32.0-36.5); MEAN CORPUSCULAR VOLUME 93.1 fl (80.0-96.0); PLATELET COUNT, AUTOMATED 518 10^3/uL (150-450); RED BLOOD COUNT 3.19 10^6/uL (4.30-6.10); RED CELL DISTRIBUTION WIDTH 18.4 % (11.5-14.5); WHITE BLOOD COUNT 14.8 10^3/uL (4.0-10.0)
[2017-07-24 05:44] LABS: ANION GAP 3 MEQ/L (8-16); BLOOD UREA NITROGEN 11 MG/DL (7-18); CALCIUM LEVEL 8.1 MG/DL (8.8-10.2); CARBON DIOXIDE LEVEL 31 MEQ/L (21-32); CHLORIDE LEVEL 107 MEQ/L (98-107); GLOMERULAR FILTRATION RATE > 60.0 (>42); GLUCOSE, FASTING 104 MG/DL (70-100); MAGNESIUM LEVEL 2.2 MG/DL (1.8-2.4); POTASSIUM SERUM 4.5 MEQ/L (3.5-5.1); SODIUM LEVEL 141 MEQ/L (136-145)
[2017-07-24] MEDS: MULTIVITAMINS/MINERALS THERAP 1 TAB PO ×2 (08:53→21:07)
[2017-07-24] MEDS: PROPRANOLOL 20 MG TAB PO ×2 (08:53→21:06)
[2017-07-24] MEDS: ENOXAPARIN 40 MG/0.4 ML SYRINGE (J1650) SC (08:53)
[2017-07-24] MEDS: TIOTROPIUM INHALER/CAPSULE (SPIRIVA) INH (09:39)
[2017-07-24] MEDS: IPRATROPIUM 0.5MG/ALBUTEROL 2.5MG INH SOL UD 3ML (DUONEB)(J7620) INH (11:45)
[2017-07-24] MEDS: NORCO, ANEXSIA 5/325MG TABLET (HYDROcodone/ACETAMINOPHEN) PO (13:20)
[2017-07-24] MEDS: zolPIDEM TARTRATE 5 MG TAB PO (21:07)
[2017-07-25] MEDS: metroNIDAZOLE (FLAGYL) 500 MG TAB PO ×2 (05:40→13:53)
[2017-07-25] MEDS: CIPROFLOXACIN 500 MG TAB PO (05:40)
[2017-07-25] MEDS: SODIUM CHLORIDE 0.9% INJ 10 ML SYR IV (05:41)
[2017-07-25 06:02] LABS: HEMATOCRIT 28.7 % (42.0-52.0); HEMOGLOBIN 9.1 g/dl (13.5-17.5); MEAN CORPUSCULAR HEMOGLOBIN 29.4 pg (27.0-33.0); MEAN CORPUSCULAR HGB CONC 31.7 g/dl (32.0-36.5); MEAN CORPUSCULAR VOLUME 92.9 fl (80.0-96.0); PLATELET COUNT, AUTOMATED 470 10^3/uL (150-450); RED BLOOD COUNT 3.09 10^6/uL (4.30-6.10); RED CELL DISTRIBUTION WIDTH 18.6 % (11.5-14.5); WHITE BLOOD COUNT 13.8 10^3/uL (4.0-10.0)
[2017-07-25 06:37] LABS: ANION GAP 6 MEQ/L (8-16); BLOOD UREA NITROGEN 13 MG/DL (7-18); CARBON DIOXIDE LEVEL 27 MEQ/L (21-32); CHLORIDE LEVEL 108 MEQ/L (98-107); CREATININE FOR GFR 0.84 MG/DL (0.70-1.30); GLOMERULAR FILTRATION RATE > 60.0 (>42); GLUCOSE, FASTING 92 MG/DL (70-100); MAGNESIUM LEVEL 2.3 MG/DL (1.8-2.4); POTASSIUM SERUM 4.7 MEQ/L (3.5-5.1); SODIUM LEVEL 141 MEQ/L (136-145)
[2017-07-25] MEDS: PROPRANOLOL 20 MG TAB PO (08:01)
[2017-07-25] MEDS: MULTIVITAMINS/MINERALS THERAP 1 TAB PO (08:01)
[2017-07-25] MEDS: ENOXAPARIN 40 MG/0.4 ML SYRINGE (J1650) SC (08:01)
[2017-07-25] MEDS: TIOTROPIUM INHALER/CAPSULE (SPIRIVA) INH (08:42)
[2017-07-25] MEDS: NORCO, ANEXSIA 5/325MG TABLET (HYDROcodone/ACETAMINOPHEN) PO (12:06)
== END 2017-07-25 16:07 | disposition home or self-care (01) | DRG 414 ==
LOC: M ED INP 07-13 00:32 → M ICU 07-18 22:31 → M PCU 07-19 14:16 → M MSPAV 07-24 05:28 → M ED 17:50 → M MSPAV 07-24 05:32
PROC: 0FB40ZZ Excision of Gallbladder, Open Approach (ICD-10-PCS; 2017-07-18 14:30)
PROC: 0D1K0Z4 Bypass Ascending Colon to Cutaneous, Open Approach (ICD-10-PCS; 2017-07-18 14:30)
PROC: 0DBL0ZZ Excision of Transverse Colon, Open Approach (ICD-10-PCS; 2017-07-18 14:30)
PROC: 30233N1 Transfusion of Nonautologous Red Blood Cells into Peripheral Vein, Percutaneous Approach (ICD-10-PCS; principal; 2017-07-18 16:15)
DX: K81.0 Acute cholecystitis (principal); K82.2 Perforation of gallbladder; J96.11 Chronic respiratory failure with hypoxia; C25.9 Malignant neoplasm of pancreas, unspecified; C78.5 Secondary malignant neoplasm of large intestine and rectum; I47.1 Supraventricular tachycardia; C78.00 Secondary malignant neoplasm of unspecified lung; I50.32 Chronic diastolic (congestive) heart failure; Z66 Do not resuscitate; K21.9 Gastro-esophageal reflux disease without esophagitis; I11.0 Hypertensive heart disease with heart failure; I48.0 Paroxysmal atrial fibrillation; J44.9 Chronic obstructive pulmonary disease, unspecified; G47.00 Insomnia, unspecified; Z92.21 Personal history of antineoplastic chemotherapy; Z87.891 Personal history of nicotine dependence; Z95.828 Presence of other vascular implants and grafts; Z88.0 Allergy status to penicillin; Z79.899 Other long term (current) drug therapy; Z53.31 Laparoscopic surgical procedure converted to open procedure

== ENCOUNTER → 2017-08-21 | Outpatient (REF) | payer MEDICARE | LOC: M LAB REF 13:06 | DX: C25.0 Malignant neoplasm of head of pancreas (principal); C78.30 Secondary malignant neoplasm of unspecified respiratory organ; C78.7 Secondary malignant neoplasm of liver and intrahepatic bile duct; D72.829 Elevated white blood cell count, unspecified | CPT/HCPCS: 86301 ==

== ENCOUNTER → 2017-09-04 | Outpatient (REF) | payer MEDICARE, OTHER ==
[2017-09-07 09:13] LABS: CA19-9 TUMOR MARKER,CARBOHYDRA 77970.2 U/ML (<35.0)
== END ==
LOC: M LAB REF 13:20
DX: C25.0 Malignant neoplasm of head of pancreas (principal); C78.30 Secondary malignant neoplasm of unspecified respiratory organ; C78.7 Secondary malignant neoplasm of liver and intrahepatic bile duct; D72.829 Elevated white blood cell count, unspecified
CPT/HCPCS: 86301

== ENCOUNTER 2017-09-18 19:28 | Emergency (ER) | payer MEDICARE, OTHER ==
[2017-09-18] MEDS: NS 1,000 ML IV ×2 (20:16→23:00)
[2017-09-18] MEDS: ONDANSETRON 4MG/2ML VIAL (J2405) IV ×2 (20:16→22:00)
[2017-09-18 20:30] LABS: BASO # 0.2 10^3/uL (0.0-0.2); BASO % 0.9 % (0.0-1.0); EOS # 0.9 10^3/uL (0.0-0.50); EOS % 4.9 % (0.0-3.0); HEMATOCRIT 32.2 % (42.0-52.0); HEMOGLOBIN 10.5 g/dl (13.5-17.5); IMMATURE GRANULOCYTE % 0.9 % (0-3.0); LYMPH # 1.3 10^3/uL (1.5-4.5); LYMPH % 6.8 % (24.0-44.0); MEAN CORPUSCULAR HEMOGLOBIN 29.5 pg (27.0-33.0); MEAN CORPUSCULAR HGB CONC 32.6 g/dl (32.0-36.5); MEAN CORPUSCULAR VOLUME 90.4 fl (80.0-96.0); MONO # 1.8 10^3/uL (0.0-0.8); MONO % 9.6 % (0.0-5.0); NEUTROPHILS # 14.1 10^3/uL (1.8-7.7); NEUTROPHILS % 76.9 % (36.0-66.0); PLATELET COUNT, AUTOMATED 302 10^3/uL (150-450); RED BLOOD COUNT 3.56 10^6/uL (4.30-6.10); RED CELL DISTRIBUTION WIDTH 15.4 % (11.5-14.5); WHITE BLOOD COUNT 18.4 10^3/uL (4.0-10.0)
[2017-09-18 20:41] LABS: INR 1.26
[2017-09-18 20:42] LABS: PARTIAL THROMBOPLASTIN TIME 30.6 SECONDS (25.4-37.6)
[2017-09-18 20:55] LABS: ALBUMIN 2.9 GM/DL (3.2-5.2); ALBUMIN/GLOBULIN RATIO 0.85 (1.00-1.93); ALKALINE PHOSPHATASE 393 U/L (45-117); ALT/SGPT 35 U/L (12-78); ANION GAP 8 MEQ/L (8-16); AST/SGOT 41 U/L (7-37); BILIRUBIN,DIRECT 0.4 MG/DL (0.0-0.2); BLOOD UREA NITROGEN 17 MG/DL (7-18); CARBON DIOXIDE LEVEL 31 MEQ/L (21-32); CHLORIDE LEVEL 91 MEQ/L (98-107); CPK CREATINE PHOSPHOKINASE 45 U/L (39-308); CREATININE FOR GFR 0.84 MG/DL (0.70-1.30); GLOMERULAR FILTRATION RATE > 60.0 (>42); GLUCOSE, FASTING 116 MG/DL (70-100); LIPASE 145 U/L (73-393); POTASSIUM SERUM 4.3 MEQ/L (3.5-5.1); SODIUM LEVEL 130 MEQ/L (136-145); TOTAL PROTEIN 6.3 GM/DL (6.4-8.2); TROPONIN I 0.03 NG/ML (< 0.10)
[2017-09-18 20:56] LABS: CK-MB VALUE MASS < 1.0 NG/ML (<3.6); MB/CK RELATIVE INDEX 2.22 (< OR =4); NT-PRO BNP 480 PG/ML (<125)
[2017-09-18] MEDS: MORPHINE 4 MG/ML 1ML VIAL/SYRINGE (J2270) IV (21:00)
[2017-09-18] MEDS ORDERED: GASTROGRAFIN SOLUTION 30ML (Q9963) As Ordered (21:26)
[2017-09-18] MEDS: GASTROGRAFIN SOLUTION 30ML PO ×2 (21:30→22:00)
[2017-09-18] MEDS ORDERED: ISOVUE-370 76% 100ML VIAL (Q9967) As Ordered (22:54)
[2017-09-19] MEDS: diphenhydrAMINE INJ 50MG/ML VIAL (J1200) IV (01:06)
[2017-09-19] MEDS: HALOPERIDOL 5 MG/ML VIAL (J1630) IV (01:06)
[2017-09-19 02:15] LABS: CK-MB VALUE MASS < 1.0 NG/ML (<3.6); CPK CREATINE PHOSPHOKINASE 42 U/L (39-308); MB/CK RELATIVE INDEX 2.38 (< OR =4); TROPONIN I 0.03 NG/ML (< 0.10)
[2017-09-19] MEDS ORDERED: METOCLOPRAMIDE INJ 10MG/2ML VIAL (J2765) As Ordered (02:41)
[2017-09-19] MEDS: METOCLOPRAMIDE INJ 10MG/2ML VIAL (J2765) IV (02:44)
== END 2017-09-19 03:06 | disposition home or self-care (01) ==
LOC: M ED 09-19 03:06
DX: R11.10 Vomiting, unspecified (principal); I44.4 Left anterior fascicular block; C25.9 Malignant neoplasm of pancreas, unspecified; C78.01 Secondary malignant neoplasm of right lung; I48.91 Unspecified atrial fibrillation; I50.9 Heart failure, unspecified; I10 Essential (primary) hypertension; G47.00 Insomnia, unspecified; J44.9 Chronic obstructive pulmonary disease, unspecified; K21.9 Gastro-esophageal reflux disease without esophagitis; K55.9 Vascular disorder of intestine, unspecified; K76.9 Liver disease, unspecified; I71.4 Abdominal aortic aneurysm, without rupture; R18.8 Other ascites; Z96.89 Presence of other specified functional implants; Z93.3 Colostomy status; Z92.21 Personal history of antineoplastic chemotherapy; Z87.891 Personal history of nicotine dependence
CPT/HCPCS: J2270